=== PATIENT | male | born 1950 | race African-American/Black ===

== ENCOUNTER 2019-11-28 21:11 | Inpatient (IN) | payer OTHER ==
[2019-11-28] MEDS ORDERED: NA CHLORIDE 0.9% 1,000 ML ONE ×2 (21:40→22:06)
[2019-11-28] MEDS ORDERED: ALBUTEROL INHALER 60 PUFF/8 GM IH ONE (21:40)
[2019-11-28 21:54] LABS: Absolute Lymphocytes (CBC) 0.8 K/uL (0.7-4.9); Basophils % 0.5 % (0-1.3); Hematocrit 36.6 % (39.6-49.0); Lymphocytes % 8.8 % (15.3-44.8); RBC Red Blood Cell Count 4.15 M/uL (4.33-5.43)
[2019-11-28 22:04] LABS: Protime INR 1.18
[2019-11-28 22:07] LABS: ALT/SGPT 27 U/L (12-78); AST/SGOT 26 U/L (15-37); Albumin 2.7 g/dL (3.4-5.0); Alkaline Phosphatase 114 U/L (45-117); Amylase 44 U/L (25-115); BUN Blood Urea Nitrogen 18 mg/dL (7-18); Bicarbonate 24 mmol/L (21-32); Bilirubin Direct 0.3 mg/dL (0-0.2); Bilirubin Total 0.9 mg/dL (0.2-1.0); CKMB Creatine Kinase MB < 1.0 ng/mL (0.3-3.6); Creatine Phosphokinase 271 U/L (39-308); Glucose Level 242 mg/dL (74-106); Lipase 63 U/L (73-393); NT PRO-BNP 1174 pg/mL (<125); Potassium 4.1 mmol/L (3.5-5.1); Protein, Total 8.9 g/dL (6.4-8.2); Sodium Level 135 mmol/L (136-145); Troponin (Emerg Dept Use Only) < 0.02 ng/mL (0.0-0.045)
--- NOTE | 2019-11-28 22:22 | RAD REPORT ---
EXAM DESCRIPTION: Otto Single View11/28/2019 9:49 pm CLINICAL HISTORY: Shortness of breath COMPARISON: none FINDINGS: Mild to moderate bilateral patchy pulmonary opacities. The heart is normal size IMPRESSION: Mild to moderate patchy bilateral pulmonary opacities may indicate Covid pneumonia
[2019-11-28] MEDS ORDERED: NA CHLORIDE 0.9% 250 ML ONE ×2 (22:31→23:07)
[2019-11-28] MEDS ORDERED: CEFTRIAXONE/SWI 1gm 1 GM/10 ML SYR ONE ×2 (22:31→23:07)
[2019-11-28] MEDS ORDERED: AZITHROMYCIN 500 MG INJ IVPB ONE ×2 (22:32→23:06)
--- NOTE | 2019-11-28 22:59 | EDPHYS ---
Physician Documentation [facility] Name: Naren Freeman Age: 69 yrs Sex: Male : 1950 Arrival Date: 11/28/2019 Time: 21:12 Bed 3 Private MD: ED Physician Jono Rogers HPI: 11/27 21:32 This 69 yrs old Black Male presents to ER via EMS with complaints of Breathing mh7 Difficulty, Covid Positive. 21:32 The patient has shortness of breath at rest. mh7 21:33 Onset: The symptoms/episode began/occurred 2 day(s) ago. Duration: The symptoms are mh7 continuous, and are steadily getting worse. The patient's shortness of breath is aggravated by coughing, talking, is alleviated by sitting up. Associated signs and symptoms: Pertinent positives: non-productive cough, Pertinent negatives: chest pain, diaphoresis, dizziness, fever, hemoptysis, loss of consciousness, nausea, numbness in extremities, visual changes, vomiting. Severity of symptoms: At their worst the symptoms were moderate today, in the emergency department the symptoms are unchanged. Patient states that he tested positive for COVID 19 last week. He states that he has become more SOB over the past 2-3 days. He denies any chest pain, fever, abdominal pain, nausea, and vomiting.. Historical: - Allergies: 21:32 Benadryl; mg2 - PMHx: 21:32 Diabetes - NIDDM; High Cholesterol; Hypertension; mg2 - Immunization history:: Flu vaccine is up to date. - Social history:: Smoking status: unknown Patient/guardian denies using alcohol, street drugs, IV drugs. ROS: 21:33 Constitutional: Negative for fever, chills, and weight loss, Eyes: Negative for injury, mh7 pain, redness, and discharge, ENT: Negative for injury, pain, and discharge, Neck: Negative for injury, pain, and swelling, Cardiovascular: Negative for chest pain, palpitations, and edema, Back: Negative for injury and pain, : Negative for injury, bleeding, discharge, and swelling, MS/Extremity: Negative for injury and deformity, Skin: Negative for injury, rash, and discoloration, Neuro: Negative for headache, weakness, numbness, tingling, and seizure, Psych: Negative for depression, anxiety, suicide ideation, homicidal ideation, and hallucinations, Allergy/Immunology: Negative for hives, rash, and allergies, Endocrine: Negative for neck swelling, polydipsia, polyuria, polyphagia, and marked weight changes, Hematologic/Lymphatic: Negative for swollen nodes, abnormal bleeding, and unusual bruising. Exam: 21:33 Head/Face: Normocephalic, atraumatic. Eyes: Pupils equal round and reactive to light, mh7 extra-ocular motions intact. Lids and lashes normal. Conjunctiva and sclera are non-icteric and not injected. Cornea within normal limits. Periorbital areas with no swelling, redness, or edema. Neck: Trachea midline, no thyromegaly or masses palpated, and no cervical lymphadenopathy. Supple, full range of motion without nuchal rigidity, or vertebral point tenderness. No Meningismus. Chest/axilla: Normal chest wall appearance and motion. Nontender with no deformity. No lesions are appreciated. 21:33 Abdomen/GI: Soft, non-tender, with normal bowel sounds. No distension or tympany. No guarding or rebound. No evidence of tenderness throughout. Back: No spinal tenderness. No costovertebral tenderness. Full range of motion. Skin: Warm, dry with normal turgor. Normal color with no rashes, no lesions, and no evidence of cellulitis. MS/ Extremity: Pulses equal, no cyanosis. Neurovascular intact. Full, normal range of motion. Neuro: Awake and alert, GCS 15, oriented to person, place, time, and situation. Cranial nerves II-XII grossly intact. Motor strength 5/5 in all extremities. Sensory grossly intact. Cerebellar exam normal. Normal gait. Psych: Awake, alert, with orientation to person, place and time. Behavior, mood, and affect are within normal limits. 21:33 Constitutional: The patient appears alert, awake, obviously ill, uncomfortable. 21:33 Cardiovascular: Rate: tachycardic, Rhythm: regular, Pulses: no pulse deficits are appreciated, Heart sounds: normal, normal S1and S2, Edema: is not appreciated, JVD: is not appreciated. 21:33 ECG was reviewed by the Attending Physician. 21:33 Respiratory: mild respiratory distress is noted, Respirations: prolonged exhalation, that is mild, tachypnea, that is mild, Breath sounds: rhonchi, that are moderate, are scattered, Respiratory rate: 28 Vital Signs: 21:23 BP 148 / 91; Pulse 111; Resp 28; Temp 97.6(O); Pulse Ox 95% on 3 lpm NC; Weight 81.65 mg2 kg; Height 6 ft. 1 in. (185.42 cm); 22:47 Pulse 105; Resp 25; Pulse Ox 100% on 3 lpm NC; mg2 23:44 BP 113 / 100; Pulse 95; Resp 24; Temp 97.6; Pulse Ox 99% on 3 lpm NC; mg2 11/28 00:14 BP 125 / 79; Pulse 96; Resp 21; Temp 98.7; Pulse Ox 100% on 2 lpm NC; rv 11/27 21:23 Body Mass Index 23.75 (81.65 kg, 185.42 cm) mg2 MDM: 11/27 21:31 Patient medically screened. 7 22:55 Differential diagnosis: Anemia Anxiety Reaction asthma, Bronchitis CHF exacerbation, mh7 Chronic Obstructive Pulmonary Disease Myocardial Infarction pneumonia, Pneumothorax pulmonary edema, reactive airway disease, Sepsis. Data reviewed: vital signs, nurses notes, EMS record, lab test result(s), cardiac enzymes, CBC, electrolytes, urinalysis, EKG, radiologic studies, plain films. Data interpreted: Pulse oximetry: on 4L(s) per nasal canula, is 100 %. Interpretation: acceptable, Plan: O2 by NC applied. Counseling: I had a detailed discussion with the patient and/or guardian regarding: the historical points, exam findings, and any diagnostic results supporting the discharge/admit diagnosis, the presence of at least one elevated blood pressure reading (>120/80) during this emergency department visit, lab results, radiology results, the need for further work-up and treatment in the hospital. 11/27 21:29 Order name: Amylase, Serum; Complete Time: 22:23 mg2 11/27 21:29 Order name: Basic Metabolic Panel; Complete Time: 22:23 mg2 11/27 21:29 Order name: Blood Culture Adult (2) mg2 11/27 21:29 Order name: CBC with Diff; Complete Time: 22:02 mg2 11/27 21:29 Order name: Ckmb; Complete Time: 22:23 mg2 11/27 21:30 Order name: CPK; Complete Time: 22:23 mg2 11/27 21:30 Order name: Lactate; Complete Time: 22:23 mg2 11/27 21:30 Order name: LFT's; Complete Time: 22:23 mg2 11/27 21:30 Order name: Lipase; Complete Time: 22:23 mg2 11/27 21:30 Order name: Procalcitonin; Complete Time: 22:39 mg2 11/27 21:30 Order name: Protime (+inr); Complete Time: 22:23 mg2 11/27 21:30 Order name: Ptt, Activated; Complete Time: 22:23 mg2 11/27 21:30 Order name: Troponin (emerg Dept Use Only); Complete Time: 22:23 mg2 11/27 21:30 Order name: Urine Microscopic Only mg2 11/27 21:32 Order name: PROBNP; Complete Time: 22:23 mh7 11/27 23:14 Order name: Basic Metabolic Panel EDMS 11/27 23:14 Order name: C-Reactive Protein EDMS 11/27 23:14 Order name: CBC with Automated Diff EDMS 11/27 23:14 Order name: Cortisol EDMS 11/27 23:14 Order name: D-Dimer EDMS 11/27 23:14 Order name: Ferritin EDMS 11/27 23:14 Order name: Lactate EDMS 11/27 23:14 Order name: Lactic Dehydrogenase EDMS 11/27 23:14 Order name: Magnesium EDMS 11/27 23:14 Order name: Phosphorus EDMS 11/27 23:14 Order name: Procalcitonin EDMS 11/27 23:14 Order name: Protime (+INR) EDMS 11/27 23:14 Order name: PTT, Activated Partial Thromb EDMS 11/27 23:14 Order name: NT PRO-BNP EDMS 11/27 23:14 Order name: Troponin I EDMS 11/27 21:30 Order name: Chest Single View XRAY; Complete Time: 22:39 mg2 11/27 21:30 Order name: Accucheck; Complete Time: 21:38 mg2 11/27 21:30 Order name: Cardiac monitoring; Complete Time: 21:38 mg2 11/27 21:30 Order name: EKG - Nurse/Tech; Complete Time: 21:38 mg2 11/27 21:30 Order name: IV Saline Lock - Large Bore; Complete Time: 21:38 mg2 11/27 21:30 Order name: Labs collected and sent; Complete Time: 21:38 mg2 11/27 21:30 Order name: O2 Per Protocol; Complete Time: 21:38 [facility] [place] 21:30 Order name: O2 Sat Monitoring; Complete Time: 21:38 [facility] [place] 23:17 Order name: Heart Healthy EDMI 11/27 23:17 Order name: Lipid Profile EDMI 11/27 23:17 Order name: Lipid Profile [facility] 11/27 23:47 Order name: Lactate Sepsis 2 HR Follow-up EDMS EC:33 Rate is 104 beats/min. Rhythm is regular, Sinus tachycardia. QRS [place] is Normal. RI mh7 interval is normal. QRS interval is normal. QT interval is normal. No Q waves. T waves are Normal. No ST changes noted. Clinical impression: Sinus tachycardia. Administered Medications: 21:37 Drug: NS 0.9% (30 ml/kg) 30 ml/kg Route: IV; Rate: bolus; Site: right antecubital; 11/28 00:13 Follow up: IV Status: Completed infusion; IV Intake: 2500ml rv 11/27 22:30 Drug: AZITHromycin 500 mg Route: IVPB; Infused Over: 1 hrs; Site: right antecubital[place] [facility] [place] 00:13 Follow up: IV Status: Completed infusion rv 00:13 Follow up: IV Intake: 250ml rv 11/27 22:31 Drug: Rocephin - (cefTRIAXone) 1 grams Route: IVPB; Infused Over: 30 mins; Site[place] [facility] [place]; 22:35 Follow up: IV Status: Completed infusion rv 23:01 Drug: Decadron - Dexamethasone 10 mg Route: IVP; Site: right antecubital; [facility] [place] 00:13 Follow up: Response: No adverse reaction rv Disposition: 11/28/19 22:58 Hospitalization ordered by Juan Carlos Ortega for Inpatient Admission. Preliminary diagnosis are Pneumonia, Hypoxia, COVID 19. - Bed requested for Intensive Care Unit. - Status is Inpatient Admission. rv - Condition is Fair. - Problem is an ongoing problem. - Symptoms have improved. Signatures: Dispatcher [employer] EDMS Shalini Sandy, RN RN Jeffry Vasquez RN RN [facility] [place] Rm Hernandez RN RN Jono Rogers MD MD mh7 Corrections: (The following items were deleted from the chart) 11/27 23:44 22:58 Hospitalization Ordered by Juan Carlos Ortega MD for Inpatient Admission. Preliminary cg diagnosis is Pneumonia; Hypoxia; COVID 19. Bed requested for Telemetry/MedSurg (Inpatient). Status is Inpatient Admission. Condition is Fair. Problem is an ongoing problem. Symptoms have improved. mh7 11/28 00:14 11/27 23:44 11/28/2019 22:58 Hospitalization Ordered by Juan Carlos Ortega MD for Inpatient rv Admission. Preliminary diagnosis is Pneumonia; Hypoxia; COVID 19. Bed requested for Intensive Care Unit. Status is Inpatient Admission. Condition is Fair. Problem is an ongoing problem. Symptoms have improved. cg
--- NOTE | 2019-11-28 22:59 | ER ---
Nurse's Notes [facility] Name: Naren Freeman Age: 69 yrs Sex: Male : 1950 Arrival Date: 11/28/2019 Time: 21:12 Bed 3 Private MD: Diagnosis: Pneumonia;Hypoxia;COVID 19 Presentation: 11/27 21:23 Chief complaint: EMS states: he is COVID positive last Wednesday. now with shortness of mg2 breath, diarrhea and cold sweats at night. sat of 88% RA. [id number]. Coronavirus screen: Surgical mask placed on patient. Patient moved to private room, placed in contact and droplet isolation with eye protection until further assessment. Patient reports a cough. Patient reports shortness of breath or difficulty breathing. Patient denies measured and/or subjective temperature greater than 100.4F prior to today's visit. Patient denies travel on a cruise ship or to a country the [facility] currently lists as an affected area. Patient denies contact with known and/or suspected case of COVID-19. Prior COVID test collected on: Wednesday positive). Ebola Screen: No symptoms or risks identified at this time. Initial Sepsis Screen: Does the patient meet any 2 criteria? RR > 20 per min. HR > 90 bpm. Yes Does the patient have a suspected source of infection? Yes:. Risk Assessment: Do you want to hurt yourself or someone else? Patient reports no desire to harm self or others. Onset of symptoms was November 2019. 21:23 Method Of Arrival: EMS: [facility] mg2 21:23 Acuity: DIXIE 2 mg2 Triage Assessment: 21:45 General: Appears distressed, comfortable, Behavior is calm, cooperative. mg2 21:45 Pain: Denies pain. EENT: No deficits noted. Neuro: Level of Consciousness is awake, mg2 alert, obeys commands, Oriented to person, place, time, situation. Cardiovascular: Capillary refill < 3 seconds Patient's skin is warm and dry. Respiratory: Reports shortness of breath at rest Onset: The symptoms/episode began/occurred this morning, the patient has moderate shortness of breath. GI: No signs and/or symptoms were reported involving the gastrointestinal system. : No signs and/or symptoms were reported regarding the genitourinary system. Derm: Skin is intact, is healthy with good turgor, Skin is pink, warm \T\ dry. normal. Musculoskeletal: Circulation, motion, and sensation intact. Capillary refill < 3 seconds. Historical: - Allergies: 21:32 Benadryl; mg2 - PMHx: 21:32 Diabetes - NIDDM; High Cholesterol; Hypertension; mg2 - Immunization history:: Flu vaccine is up to date. - Social history:: Smoking status: unknown Patient/guardian denies using alcohol, street drugs, IV drugs. Screenin:33 Abuse screen: Denies threats or abuse. Denies injuries from another. Nutritional mg2 screening: No deficits noted. Tuberculosis screening: No symptoms or risk factors identified. Fall Risk IV access (20 points). Assessment: 21:33 Respiratory: Airway is patent Respiratory effort is even, unlabored, Respiratory mg2 pattern is regular, symmetrical, tachypnea Breath sounds are clear bilaterally. 22:47 Reassessment: Patient appears in no apparent distress at this time. Patient and/or mg2 family updated on plan of care and expected duration. Pain level reassessed. Patient is alert, oriented x 3, equal unlabored respirations, skin warm/dry/pink. 22:47 General: SISTER (PEARL) called and updated about the patient. [phone]. mg2 22:48 Cardiovascular: Rhythm is regular. mg2 Vital Signs: 21:23 BP 148 / 91; Pulse 111; Resp 28; Temp 97.6(O); Pulse Ox 95% on 3 lpm NC; Weight 81.65 mg2 kg; Height 6 ft. 1 in. (185.42 cm); 22:47 Pulse 105; Resp 25; Pulse Ox 100% on 3 lpm NC; mg2 23:44 BP 113 / 100; Pulse 95; Resp 24; Temp 97.6; Pulse Ox 99% on 3 lpm NC; mg2 11/28 00:14 BP 125 / 79; Pulse 96; Resp 21; Temp 98.7; Pulse Ox 100% on 2 lpm NC; rv 11/27 21:23 Body Mass Index 23.75 (81.65 kg, 185.42 cm) mg2 ED Course: 11/27 21:12 Patient arrived in ED. cf2 21:23 Jeffry Vasquez, ESTRELLA is Primary Nurse. mg2 21:25 First set of blood cultures drawn by ky. rv 21:28 Triage completed. mg2 21:31 Jono Rogers MD is Attending Physician. [facility] 21:32 No provider procedures requiring assistance completed. Inserted saline lock: 18 gauge mg2 in right antecubital area, using aseptic technique. Blood collected. by ESTRELLA Elizabeth. 21:32 Maintain EMS IV. Dressing intact. Good blood return noted. Site clean \T\ dry. Gauge \T\ mg 2 site: 20 \T\ LAC. 21:33 Patient has correct armband on for positive identification. threat monitoring analyst on. Pulse mg2 ox on. NIBP on. Door closed. 21:36 Second set of blood cultures drawn by me. rv 21:49 Chest Single View XRAY In Process Unspecified. EDMS 22:48 Arm band placed on. mg2 22:56 Juan Carlos Ortega MD is Hospitalizing Provider. [facility] 11/28 00:14 IV is patent, with fluids infusing freely, with good blood return, Patient admitted, IV rv remains in place. Administered Medications: 11/27 21:37 Drug: NS 0.9% (30 ml/kg) 30 ml/kg Route: IV; Rate: bolus; Site: right antecubital; rv 11/28 00:13 Follow up: IV Status: Completed infusion; IV Intake: 2500ml rv 11/27 22:30 Drug: AZITHromycin 500 mg Route: IVPB; Infused Over: 1 hrs; Site: right antecubital; [facility] [place] 11/28 00:13 Follow up: IV Status: Completed infusion rv 00:13 Follow up: IV Intake: 250ml rv 11/27 22:31 Drug: Rocephin - (cefTRIAXone) 1 grams Route: IVPB; Infused Over: 30 mins; Site: right mg2 antecubital; 22:35 Follow up: IV Status: Completed infusion rv 23:01 Drug: Decadron - Dexamethasone 10 mg Route: IVP; Site: right antecubital; [facility] [place] 11/28 00:13 Follow up: Response: No adverse reaction rv Intake: 00:13 IV: 250ml; Total: 250ml. rv 00:13 IV: 2500ml; Total: 2750ml. rv Outcome: 11/27 22:58 Decision to Hospitalize by Provider. [facility] 11/28 00:13 Admitted to ICU accompanied by nurse, via stretcher, room 7, with chart, Report called rv to BREANNA DE LA ROSA Condition: good Instructed on the need for admit. 00:14 Patient left the ED. rv Signatures: Dispatcher [employer] EDMS Jeffry Vasquez RN RN mg2 Rm Hernandez RN RN rv Lionel Luna 2 Jono Rogers MD MD mh7 Corrections: (The following items were deleted from the chart) 11/27 22:46 21:39 General: Appears rv mg2 22:46 22:45 Respiratory: Reports mg2 mg2 22:47 22:45 General: Behavior is calm, cooperative, mg2 mg2 22:47 22:46 General: Appears mg2 mg2 23:15 21:32 Inserted saline lock: 20 gauge in right antecubital area, using aseptic rv technique. Blood collected. by ESTRELLA Elizabeth mg2
[2019-11-28] MEDS ORDERED: dexAMETHasone 10 MG/ML VIAL ONE (23:06)
[2019-11-28] MEDS ORDERED: ALBUTEROL INHALER 60 PUFF/8 GM IH PRN (23:12)
[2019-11-28] MEDS ORDERED: ENOXAPARIN 40 MG/0.4 ML SQ ONE (23:12)
[2019-11-28] MEDS ORDERED: BENZONATATE 100 MG CAP PO PRN (23:12)
[2019-11-28] MEDS ORDERED: MORPHINE 2 MG/ML SYR IV PRN (23:12)
[2019-11-28] MEDS ORDERED: ACETAMINOPHEN 325 MG TABLET PO PRN (23:14)
[2019-11-28] MEDS ORDERED: ONDANSETRON 4 MG/2 ML VIAL IV PRN (23:14)
[2019-11-29] MEDS ORDERED: dexAMETHasone 10 MG/ML VIAL IV SCH (01:00)
[2019-11-29] MEDS: PANTOPRAZOLE 40MG TABLET PO SCH (06:21)
[2019-11-29 06:51] LABS: Absolute Lymphocytes (CBC) 0.5 K/uL (0.7-4.9); Basophils % 0.3 % (0-1.3); Hematocrit 33.2 % (39.6-49.0); Lymphocytes % 6.6 % (15.3-44.8); MPV 8.1 fL (7.6-11.3)
[2019-11-29 06:54] LABS: Protime INR 1.25
[2019-11-29 07:37] LABS: BUN Blood Urea Nitrogen 18 mg/dL (7-18); Bicarbonate 23 mmol/L (21-32); Glucose Level 282 mg/dL (74-106); HDL Cholesterol 31 mg/dL (40-60); LDL Cholesterol, Calculated 96 (<130); NT PRO-BNP 931 pg/mL (<125); Phosphorus 3.9 mg/dL (2.5-4.9); Potassium 4.6 mmol/L (3.5-5.1); Sodium Level 136 mmol/L (136-145); Troponin I < 0.02 ng/mL (0.0-0.045)
--- NOTE | 2019-11-29 07:58 | P.HP ---
Certification for Inpatient Patient admitted to: Inpatient With expected LOS: >2 Midnights Patient will require the following post-hospital care: None Practitioner: I am a practitioner with admitting privileges, knowledge of patient current condition, hospital course, and medical plan of care. Services: Services provided to patient in accordance with Admission requirements found in Title 42 Section 412.3 of the Code of Federal Regulations Patient History Date of Service: 11/28/19 Reason for admission: COVID-19 pneumonia History of Present Illness: Patient is a 69-year-old gentleman who came to the hospital with worsening shortness of breath. Patient was diagnosed with COVID-19 1 week prior. Patient's symptoms have gradually gotten worse. Patient states he was not taking any additional medication. He had been feeling well, and over the last few days he noticed that he was having a hard time with his breathing. He came into the ER tonight, and he was found with pneumonia. Patient appears to have COVID-19 pneumonia. Will go ahead and start him on IV steroids, albuterol inhaler, steroid inhaler if available, IV zithromycin, and anticoagulation. Patient will be admitted to the hospital for further evaluation. Allergies diphenhydramine [From Benadryl] Allergy (Verified 03/04/16 10:02) Nausea/Vomiting Home Medications: Canagliflozin [Invokana] 100 mg PO DAILY 12/17/15 Glimepiride [Amaryl] 4 mg PO BREAKFAST 12/17/15 Lovastatin 40 mg PO BEDTIME 12/17/15 hydroCHLOROthiazide [Hydrochlorothiazide*] 12.5 mg PO DAILY 12/17/15 lisinopriL [Prinivil] 20 mg PO DAILY 12/17/15 Ciprofloxacin HCl [Cipro 500 MG Tablet] 500 mg PO BID #14 tab 12/26/15 Hydrocodone 7.5/APAP 325 [[place] 7.5/325 mg] 1 tab PO Q6H PRN #30 tab 12/26/15 Acetaminophen/Diphenhydramine [Tylenol Pm Ex-Strength Caplet] 2 each PO BEDTIME PRN 11/29/19 Aspirin 81 mg PO DAILY 11/29/19 Benzonatate 100 mg PO TID PRN 11/29/19 Duloxetine HCl 60 mg PO DAILY 11/29/19 Tamsulosin [Flomax] 0.4 mg PO DAILY 11/29/19 - Past Medical/Surgical History Has patient received pneumonia vaccine in the past: Yes Diabetic: Yes -: NIDDM -: HTN -: High Cholesterol -: 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 moist/pink, EOMI, Sclerae nonicteric Neck: Supple, 2+ carotid pulse no bruit, No LAD, Without JVD or thyroid abnormality Respiratory: Diminished, Expiratory wheezes, Rhonchi/gurgles Cardiovascular: Regular rate/rhythm, Normal S1 S2, No murmurs Gastrointestinal: Normal bowel sounds, Soft and benign, Non-distended, No tenderness Musculoskeletal: No clubbing, No swelling, No tenderness Integumentary: No rashes Neurological: Normal gait, Normal speech, Normal strength at 5/5 x4 extr, Normal tone, Sensation intact, Cranial nerves 3-12 intact, Normal affect Lymphatics: No axilla or inguinal lymphadenopathy - Studies Laboratory Data (last 24 hrs) 11/28/19 21:25: PT 13.9 H, INR 1.18, APTT 32.5 11/28/19 21:25: WBC 8.9, Hgb 12.3 L, Hct 36.6 L, Plt Count 396 11/28/19 21:25: Sodium 135 L, Potassium 4.1, BUN 18, Creatinine 1.60 H, Glucose 242 H, Total Bilirubin 0.9, AST 26, ALT 27, Alkaline Phosphatase 114, Amylase 44, Lipase 63 L Assessment & Plan - Problems (Diagnosis) (1) COVID-19 virus infection Current Visit: Yes Status: Acute (2) Diabetes mellitus Onset Date: 12/18/15 Current Visit: No Status: Acute - Plan 1. Continue with IV antibiotics 2. COVID-19 pneumonia 3. Repeat chest x-ray is symptoms are progressively worsening 4. O2 per protocol 5. Pulmonary consultation 6. Continue with albuterol inhaler therapy; IV dexamethasone; may add zinc and vitamin-C 7. O2 per protocol 8. Monitor blood sugars closely 9. Repeat labs including D-dimer, ferritin, and CRP and LFTs 10. GI and DVT prophylaxis Discharge Plan: Home Plan to discharge in: Greater than 2 days - Advance Directives Does patient have a Living Will: No Does patient have a Durable POA for Healthcare: No - Code Status/Comfort Care Code Status Assessed: Yes Code Status: Full Code Critical Care: No Time Spent Managing PTS Care (In Minutes): 45
[2019-11-29] MEDS: ENOXAPARIN 40 MG/0.4 ML SQ SCH (08:00)
[2019-11-29] MEDS: dexAMETHasone 4 MG/ML VIAL IV SCH ×2 (08:00→16:44)
[2019-11-29 08:15] LABS: Blood Morphology Comment NOT SEEN (NOT SEEN); Platelet Estimate ADEQ
[2019-11-29] MEDS: AZITHROMYCIN IV 250 MG in NA CHLORIDE 0.9% 250 ML IVPB SCH (10:22)
[2019-11-29] MEDS ORDERED: GLUCAGON 1 MG/VIAL IM PRN (12:14)
[2019-11-29] MEDS ORDERED: D50W 25 GM/50 ML SYRINGE/VIAL IV PRN (12:14)
[2019-11-29] MEDS ORDERED: INSULIN -REGULAR HUMAN 50 UNIT/0.5 ML ML SQ SCH (16:30)
[2019-11-29] MEDS ORDERED: HYDROCODONE/APAP 7.5/325 MG TAB PO PRN (16:32)
[2019-11-29] MEDS: INSULIN -REGULAR HUMAN 50 UNIT/0.5 ML ML SQ SCH ×2 (16:44→20:58)
[2019-11-29] MEDS: GLUCERNA SHAKE 237 ML CAN PO SCH (20:58)
[2019-11-30] MEDS: dexAMETHasone 4 MG/ML VIAL IV SCH ×3 (00:10→21:59)
[2019-11-30] MEDS: PANTOPRAZOLE 40MG TABLET PO SCH (06:15)
[2019-11-30 06:29] VITALS: BMI 20.1
[2019-11-30 06:58] LABS: Absolute Lymphocytes (CBC) 0.7 K/uL (0.7-4.9); Basophils % 0.3 % (0-1.3); Hematocrit 34.7 % (39.6-49.0); Lymphocytes % 4.5 % (15.3-44.8)
--- NOTE | 2019-11-30 07:26 | EKG ---
Test Date: 2019-11-28 Test Time: 21:18:28 Aircraft Armorer: MEASUREMENT RESULTS: Intervals: Rate: 104 KS: 200 QRSD: 72 QT: 354 QTc: 465 [place]: P: 58 KS: 200 QRS: 37 T: 34 INTERPRETIVE STATEMENTS: Sinus tachycardia Otherwise normal ECG Compared to ECG 03/04/2016 09:30:11 Sinus rhythm no longer present First degree AV block no longer present Prolonged QT interval no longer present Electronically Signed On 11-30-19 07:23:39 CDT by Ramin Cuevas
[2019-11-30] MEDS ORDERED: HOME MED 1 EA UNK (Glimepiride [Amaryl] 4 MG) PO SCH (08:00)
[2019-11-30] MEDS: DULOXETINE 30 MG CAP PO SCH (08:12)
[2019-11-30] MEDS: TAMSULOSIN 0.4 MG SR CAP PO SCH (08:12)
[2019-11-30] MEDS: ENOXAPARIN 40 MG/0.4 ML SQ SCH ×2 (08:13→22:00)
[2019-11-30] MEDS: ASPIRIN 81 MG CHEWABLE TABLET PO SCH (08:13)
[2019-11-30] MEDS: GLIMEPIRIDE 2 MG TABLET PO SCH (08:13)
[2019-11-30 08:14] LABS: Ferritin 925.5 ng/mL (26-388); Magnesium 2.2 mg/dL (1.8-2.4); Potassium 4.5 mmol/L (3.5-5.1)
[2019-11-30] MEDS: GLUCERNA SHAKE 237 ML CAN PO SCH ×2 (08:16→22:01)
[2019-11-30] MEDS: INSULIN -REGULAR HUMAN 50 UNIT/0.5 ML ML SQ SCH ×4 (08:58→22:00)
[2019-11-30] MEDS ORDERED: HOME MED 1 EA UNK (Duloxetine Hcl [Duloxetine Hcl] 60 MG) PO SCH (09:00)
[2019-11-30] MEDS ORDERED: lisinopriL 20 MG TAB PO SCH (09:00)
[2019-11-30] MEDS ORDERED: hydroCHLOROthiazide 12.5 MG CAP PO SCH (09:00)
--- NOTE | 2019-11-30 10:55 | RAD REPORT ---
EXAM DESCRIPTION: CT - [id number] - 11/30/2019 10:07 am CLINICAL HISTORY: numbness hands, COVID positive COMPARISON: No comparisons TECHNIQUE: Axial 5 mm thick images of the head were obtained. Axial 2 mm thick images of the cervic al spine were obtained with sagittal and coronal reconstruction images generated and reviewed. All CT scans are performed using dose optimization technique as appropriate and may include automated exposure control or mA/KV adjustment according to patient size. FINDINGS: No intracranial hemorrhage, mass or edema. No midline shift is present. Atrophy changes ar e present with ventricles in proportion to volume loss. Chronic ischemic changes are present in the c erebral white matter more notable in the frontal lobes. Patient has a small 7 mm old lacunar type inf arctions seen in the posterior left basal ganglia near the genu of the internal capsule. This extends into the deep periventricular white matter of the left frontal lobe. There is an additional more pro minent 17 millimeter area of diminished attenuation in the left frontal lobe. Nonhemorrhagic acute or subacute infarction is not excluded. In this location, this would probably not cause a bilateral cha d numbness deficits. No significant abnormality along either motor pathway. No significant brainstem chronic ischemic change or acute ischemic event identifiable. No cortical edema or sulcal effacement. No extra-axial fluid collections. Mastoid air cells and paranasal sinuses are clear. No globe or orb it abnormality seen. Thyroid gland nodularity is present not likely clinically significant. Cervical bodies are normal in height. There is a mild anterior subluxation of C7 on T1 secondary to f acet degenerative change. C2-C7 vertebrae show straightening of the usual cervical lordosis but no pappas bluxation abnormalities. C5-6, C6-7 and C7-T1 disc spaces are narrowed. Uncovertebral joint hypertrop hy and facet hypertrophy cause bilateral foraminal stenosis at C3-4, C4-5, C5-6 and C6-7. Central can al posterior endplate spurring changes are present C4-C7. At C5-6 focal protruding bone in the midlin e causes spinal stenosis to 8 mm and likely flattens the cord. Canal is borderline stenotic at C4-5 a nd C6-7. No fracture or acute bony abnormality. Central canal detail is inherently limited. No paraspinal mass or hematoma. IMPRESSION: No hemorrhage, mass or edema on CT head imaging. Patient has underlying atrophy and hand clerical verifier apurva ischemic change. Focal 17 millimeter area of decreased attenuation deep periventricular white matter left frontal lobe is potentially an acute or subacute infarction. In this location this would not generate a bilateral hand numbness neurologic deficit. No fracture or acute cervical spine finding. There is multilevel cervical spondylosis with multiple l evels showing abnormalities that could cause hand numbness. This is most notable at C5-6. Negative CT cervical spine examination for acute or significant finding.
[2019-11-30] MEDS: AZITHROMYCIN IV 250 MG in NA CHLORIDE 0.9% 250 ML IVPB SCH (11:01)
--- NOTE | 2019-11-30 11:05 | P.PN ---
Subjective Date of Service: 11/29/19 Subjective: No new changes, No C/O voiced, Improving Review of Systems 10-point ROS is otherwise unremarkable Physical Examination - Vital Signs Temperature: 98.1 F Blood Pressure: 141/83 Pulse: 83 Respirations: 22 Pulse Ox (%): 96 - Physical Exam General: Alert, In no apparent distress, Oriented x3 Respiratory: Diminished, Rhonchi/gurgles Cardiovascular: Regular rate/rhythm, Normal S1 S2, No murmurs Gastrointestinal: Normal bowel sounds, Soft and benign, Non-distended, No tenderness Neurological: Normal speech, Normal affect - Studies Medications List Reviewed: Yes Assessment & Plan - Problems (Diagnosis) (1) COVID-19 virus infection Current Visit: Yes Status: Acute (2) Diabetes mellitus Onset Date: 12/18/15 Current Visit: No Status: Acute - Plan Continue with POC as below: 1. Continue with IV antibiotics 2. COVID-19 pneumonia 3. Repeat chest x-ray is symptoms are progressively worsening 4. O2 per protocol 5. Pulmonary consultation 6. Continue with albuterol inhaler therapy; IV dexamethasone; may add zinc and vitamin-C 7. O2 per protocol 8. Monitor blood sugars closely 9. Repeat labs including D-dimer, ferritin, and CRP and LFTs 10. GI and DVT prophylaxis Discharge Plan: Home Plan to discharge in: 24 Hours - Advance Directives Does patient have a Living Will: No Does patient have a Durable POA for Healthcare: No - Code Status/Comfort Care Code Status: Full Code
--- NOTE | 2019-11-30 11:24 | P.PN ---
Subjective Date of Service: 11/30/19 Primary Care Provider: Unknown Chief Complaint: COVID-19 pneumonia Subjective: Other (Called to the room as the patient was noticing and weakness to the right upper extremity with numbness to the bilateral upper extremities and possible slurred speech. Patient was evaluated. CT scan obtained.) Physical Examination - Vital Signs Temperature: 98.1 F Blood Pressure: 141/83 Pulse: 83 Respirations: 22 Pulse Ox (%): 96 - Physical Exam General: Alert, In no apparent distress, Oriented x3, Cooperative HEENT: Atraumatic Neck: Supple, Other Respiratory: Clear to auscultation bilaterally, Normal air movement Cardiovascular: Normal pulses, Regular rate/rhythm Gastrointestinal: Normal bowel sounds, No masses, No rebound, No guarding Musculoskeletal: Other (Mild RUE weakness. 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 No significant respiratory issues notice at this time. Continue IV Decadron. Maintain oxygen above 93%. Will discuss further with Dr. Ortega who will take over patient. Right upper extremity weakness, bilateral upper extremity numbness, possible slurred speech suspect subacute CVA to the left frontal lobe complicated with multi level cervical spondylosis: CT scan reviewed. Suspect subacute CVA. Case discussed at length with Neurology. No indication for tPA at this time. Continue aspirin. Add Plavix. Continue Lovenox at current dose at this time. Will add folic acid, increase statin medication. Will also order stroke protocol MRI, echocardiogram, and carotid Doppler. Will order physical therapy/occupational therapy/and speech therapy. Patient may require rehab but will determine his needs in the next 1-2 days. Diabetes mellitus type 2 qsq-pmvkjhr-ulxajinsw with hyperglycemia: Will add basal insulin for better diabetic control since the patient is getting IV Decadron for COVID. Continue sliding scale. Monitor Accu-Cheks. Hypertension: Patient reports a cough likely Eddie allergy. Will discontinue li sinopril. Will change attendant to losartan. Due to subacute CVA will limit blood pressure around 140-150 systolic. Hold losartan if systolic less than 140. Hyperlipidemia: Increase statin medication Diabetic neuropathy: Will provide medication BPH: Continue medication Time Spent Managing Pts Care (In Minutes): 55
--- NOTE | 2019-11-30 19:42 | RAD REPORT ---
EXAM DESCRIPTION: MRI - Brain W/Wo Cont - 11/30/2019 7:26 pm CLINICAL HISTORY: numbness COMPARISON: [address] TECHNIQUE: Axial, sagittal, and coronal magnetic images of the brain were obtained. 20 cc MultiHance administered intravenously FINDINGS: Mild signal within periventricular, deep and subcortical white matter probably ischemic c hanges secondary to small vessel disease The ventricles are normal in caliber. Diffusion-weighted/ ADC mapping sequences demonstrate serpiginous areas of abnormal signal within the posterior left frontal lobe compatible with acute infarction. One area measures 14 x 5 millimeters. Additional smaller and punctate areas are present. Small serpiginous area of abnormal signal within the right frontal lobe compatible with old infarctio n. Old infarction involves the left frontal lobe, internal capsule and left basal ganglia No abnormal enhancement within the brain is seen. An extra-axial fluid collection is not noted. Fluid within the sinuses/mastoids is not seen. A mucus retention cyst maxillary sinuses IMPRESSION: Acute infarction posterior left frontal lobe
--- NOTE | 2019-11-30 19:44 | RAD REPORT ---
EXAM DESCRIPTION: MRI - MRA Neck W/Wo Cont - 11/30/2019 7:26 pm CLINICAL HISTORY: Numbness COMPARISON: None. TECHNIQUE: Magnetic resonance angiogram of the neck was performed. 19 cc MultiHance was administered intravenously. 3D MIPS reconstruction performed FINDINGS: Mild plaque within the right carotid bulb. Common carotid, left internal carotid and exter nal carotid arteries appear unremarkable The vertebral arteries are codominant. High-grade stenosis proximal left vertebral artery. IMPRESSION: Mild plaque right carotid bulb NASCET criteria used. Mild 0-49% stenosis Moderate 50-69% stenosis Severe 70-99% stenosis
--- NOTE | 2019-11-30 19:47 | RAD REPORT ---
EXAM DESCRIPTION: MRI - MRA Head Wo Cont - 11/30/2019 7:26 pm CLINICAL HISTORY: Numbness COMPARISON: None. TECHNIQUE: Magnetic resonance angiogram was performed. 3D MIPS reconstruction performed FINDINGS: The anterior cerebral, middle cerebral,, distal internal carotid and basilar arteries do n ot demonstrate a significant stenosis. Short segment stenoses involves right and left posterior arteries probably chronic An aneurysm is not displayed. IMPRESSION: No acute abnormality is displayed
[2019-11-30] MEDS: INSULIN GLARGINE 100 UNITS/ML SQ SCH (21:00)
[2019-11-30] MEDS: ATORVASTATIN 80 MG TAB PO SCH (22:00)
--- NOTE | 2019-11-30 22:34 | CON ---
Reason For Consultation: Consultation called because of possible stroke. History Of Present Illness: Mr. Freeman is a 69-year-old right-handed patient who was admitted to [facility] on 11/28/2019 with COVID-19 pneumonia. He had shortness of breath fo r at least a week and was diagnosed a week earlier. While hospitalized he was noted to have right-si ded weakness, which could have been present prior to his hospitalization and bilateral numbness. Hea d CT scan was done and also included cervical spine. It identified a 17 mm area of decreased attenua tion in the deep periventricular white matter in the left frontal lobe, potentially noted to be an ac jan versus subacute infarct. However, it was noted that that area will not produce bilateral hand nu mbness but he may have some right-sided weakness, perhaps related to that. Cervical region showed mu ltilevel cervical spondylosis and there was a notable involvement at the C5-6, which may produce some hand numbness. His electrocardiogram showed a sinus tachycardia but was otherwise unremarkable and a chest x-ray, he had a mild to moderate patchy bilateral pneumonia indicative of COVID pneumonia. Past Medical History: Includes hypertension and dyslipidemia, prostate hypertrophy, depression, change lead apurva pain, and diabetes mellitus. Allergies: BENADRYL. Surgical History: Right toe amputation, small toe on the right and then also left toe amputation and left qwjni-pqr-dexc amputation. Family History: Positive for diabetes mellitus and cancer in mother. Social History: Smokes on a regular basis. No regular alcohol use or caffeinated beverages. Review of Systems: No recent fevers or chills besides the cough and shortness of breath. He had no abdominal pain, diar kalpesh, and no dermatological issues. No psychiatric issues. Physical Examination: Vital Signs: Blood pressure 142/78, pulse of 96, respiratory rate 16 to 20, temperature 98.0, oxygen saturation 98%. Weight 151 pounds. Height 6 feet 1 inch. General: Mr. Freeman is resting in bed. He is in no significant distress. He is in ICU. HEENT: He is normocephalic, atraumatic. Sclerae anicteric. Oropharynx is moist. Neck: Supple. Chest: Clear. Heart: Appears regular. The patient's nurse did evaluate him as well as I was at the bedside. Neurological: In terms of cranial nerves, no obvious focal cranial nerve deficits. He did note that his right hand appeared still not back to normal in terms of strength and there is some sensory loss bilaterally in the upper extremities. Lower extremities were reportedly unremarkable. Reflexes cou ld not be fully assessed and his coordination appears intact. Gait not assessed. Laboratory Studies: White blood cell count elevated to 15.2 with 91.2% neutrophils, hemoglobin 11.5, platelets 514. INR 1.25. D-dimer elevated at 19,953. His chemistries include blood sugars ranging from 278-325. Hemoglobin A1c is 8.5. Lactic acid level 1.8, and procalcitonin normal at 0.33. Oth erwise C-reactive protein is very elevated to 111, lactate dehydrogenase elevated to 402. Assessment: Mr. Freeman is 69-year-old patient with a possible subacute left frontal stroke on CT scan and he has some residual right-sided weakness. The stroke is likely subacute and he was not a candid ate for tPA. He does have bilateral numbness in the upper extremities, which may be related to cervi julio cord compression and nerve root compression. He has multiple comorbid conditions including hyper tension, diabetes mellitus, and dyslipidemia. He has diabetic peripheral neuropathy and has a below- the-knee amputation. He has positive COVID-19 pneumonia. Please note, NIH stroke scale is 2. Plan: 1.Continue aggressive management of infections and use steroids as appropriate for his COVID-19. 2.He may take aspirin, Plavix, folic acid along with high-dose statin for stroke risk reduction. 3.Permissive hypertension in the next 3 days. 4.Aggressive management of blood sugars. 5.Since the patient is COVID-19 positive, he is not a candidate for admission to the inpatient rehab ilitation unit on hospital floor. He may be discharged home on quarantine and if there is possible m ay have [facility] provide physical therapy. 6.He may schedule a phone followup with Dr. Cuevas in 1 month. PETE/ELDA Voice ID: [id number] Report ID: [id number]
[2019-12-01] MEDS: PANTOPRAZOLE 40MG TABLET PO SCH (05:38)
[2019-12-01 06:30] LABS: Absolute Lymphocytes (CBC) 0.7 K/uL (0.7-4.9); Basophils % 0.1 % (0-1.3); Lymphocytes % 4.1 % (15.3-44.8); MPV 8.1 fL (7.6-11.3); RBC Red Blood Cell Count 3.65 M/uL (4.33-5.43)
[2019-12-01 07:10] LABS: C-Reactive Protein 50.5 mg/L (<3.00); Ferritin 784.3 ng/mL (26-388); Magnesium 2.2 mg/dL (1.8-2.4); Phosphorus 2.5 mg/dL (2.5-4.9)
[2019-12-01] MEDS: LOSARTAN POTASSIUM 50 MG TABLET PO SCH (08:55)
[2019-12-01] MEDS: DULOXETINE 30 MG CAP PO SCH (08:55)
[2019-12-01] MEDS: CLOPIDOGREL 75 MG TABLET PO SCH (08:55)
[2019-12-01] MEDS: ASPIRIN 81 MG CHEWABLE TABLET PO SCH (08:55)
[2019-12-01] MEDS: INSULIN -REGULAR HUMAN 50 UNIT/0.5 ML ML SQ SCH ×4 (08:56→20:21)
[2019-12-01] MEDS: GLIMEPIRIDE 2 MG TABLET PO SCH (08:56)
[2019-12-01] MEDS: FOLIC ACID 1 MG TABLET PO SCH (08:56)
[2019-12-01] MEDS: TAMSULOSIN 0.4 MG SR CAP PO SCH (08:56)
[2019-12-01] MEDS ORDERED: LOSARTAN POTASSIUM 50 MG TABLET PO SCH (09:00)
[2019-12-01] MEDS: GLUCERNA SHAKE 237 ML CAN PO SCH ×2 (09:00→20:23)
--- NOTE | 2019-12-01 09:31 | RAD REPORT ---
EXAM DESCRIPTION: US - CP - 11/30/2019 10:06 pm CLINICAL HISTORY: Bilateral UE numbness RUE weakness, Slurred speech COMPARISON: MRA Neck W/Wo Cont dated 11/30/2019 TECHNIQUE: Real-time sonographic evaluation of bilateral carotid and vertebral systems was performed . Leon scale and Doppler interrogation were performed with waveform tracing bilaterally. FINDINGS: Normal high resistance waveforms are noted in both external carotid arteries. The common c arotid arteries and internal carotid arteries show normal low resistance waveforms. Mild plaquing changes are present in the right carotid bulb. On visual inspection this does not cause significant narrowing of the vessel lumen. Images correlate with the MRA neck examination with steno sis less than 50%. No other significant plaquing identified. Peak systolic and end diastolic velocity values and the ICA/CCA ratios are in the non-hemodynamically significant range. Antegrade flow seen in both vertebral arteries. Velocity values and ratios were recorded and are retained in the patient's imaging records. IMPRESSION: Right carotid bulb plaquing changes are present, mild in degree, not causing significant luminal narrowing. No other significant plaquing changes.
[2019-12-01] MEDS: ENOXAPARIN 40 MG/0.4 ML SQ SCH ×2 (09:42→20:22)
[2019-12-01] MEDS: dexAMETHasone 4 MG/ML VIAL IV SCH ×2 (09:42→20:22)
--- NOTE | 2019-12-01 09:47 | ECHO ---
HEIGHT: 6 ft 1 in WEIGHT: 152 lb 14.4 oz DATE OF STUDY: 11/30/[address]: Venancio Mayer DO 2-DIMENSIONAL: YES M.MODE: YES DOPPLER: YES COLOR FLOW: YES TDS: NO PORTABLE: NO DEFINITY: NO BUBBLE STUDY: NO DIAGNOSIS: BILATERAL UE NUMBNESS, RUE WEAKNESS AND SLURRED SPEECH CARDIAC HISTORY: CATHERIZATION: NO SURGERY: NO PROSTHETIC VALVE: NO PACEMAKER: NO MEASUREMENTS (cm) DIASTOLIC (NORMALS) SYSTOLIC (NORMALS) IVSd 1.0 (0.6-1.2) LA Diam 2.5 (1.9-4.0) LVEF 55% LVIDd 3.3 (3.5-5.7) LVIDs 2.4 (2.0-3.5) %FS 28% LVPWd 1.0 (0.6-1.2) Ao Diam 3.0 (2.0-3.7) 2 DIMENSIONAL ASSESSMENT: RIGHT ATRIUM: NORMAL LEFT ATRIUM: NORMAL RIGHT VENTRICLE: NORMAL LEFT VENTRICLE: NORMAL TRICUSPID VALVE: NORMAL MITRAL VALVE: NORMAL PULMONIC VALVE: NORMAL AORTIC VALVE: NORMAL PERICARDIAL EFFUSION: NONE AORTIC ROOT: NORMAL LEFT VENTRICULAR WALL MOTION: NORMAL DOPPLER/COLOR FLOW: GRADE I DIASTOLIC DYSFUNCTION. COMMENTS: NORMAL LEFT VENTRICULAR EJECTION FRACTION 55-60% WITH NORMAL WALL MOTION. GRADE I DIASTOLIC DYSFUNCTION. TECHNOLOGIST: Sparkle SILVA
--- NOTE | 2019-12-01 11:04 | P.PN ---
Subjective Date of Service: 12/01/19 Primary Care Provider: Unknown Chief Complaint: COVID-19 pneumonia Subjective: No new changes Review of Systems 10-point ROS is otherwise unremarkable Physical Examination - Vital Signs Temperature: 96.9 F Blood Pressure: 168/94 Pulse: 76 Respirations: 18 Pulse Ox (%): 94 - Physical Exam General: Alert, Mild distress HEENT: Atraumatic, Normocephalic Neck: Supple Respiratory: Diminished, Crackles/rales Cardiovascular: Regular rate/rhythm, Normal S1 S2 Capillary refill: <2 Seconds Gastrointestinal: Soft and benign, W/out hepatosplenomegaly Musculoskeletal: No clubbing, No swelling Integumentary: No rashes Neurological: Other (Alert , awake moves all the limbs) Lymphatics: No axilla or inguinal lymphadenopathy Urinary: Other (No bladder distention) - Studies Laboratory Tests 11/28/19 11/28/19 11/28/19 21:25 21:25 21:25 WBC 8.9 RBC 4.15 L Hgb 12.3 L Hct 36.6 L MCV 88.3 MCH 29.6 MCHC 33.6 RDW 14.7 Plt Count 396 MPV 8.0 Neutrophils % 79.2 H Lymphocytes % 8.8 L Monocytes % 10.5 Eosinophils % 1.0 Basophils % 0.5 Absolute Neutrophils 7.1 Absolute Lymphocytes 0.8 Absolute Monocytes 0.9 Absolute Eosinophils 0.1 Absolute Basophils 0.0 PT INR APTT Sodium 135 L Potassium 4.1 Chloride 97 L Carbon Dioxide 24 BUN 18 Creatinine 1.60 H Estimated GFR 52 L Glucose 242 H Lactic Acid 2.3 H Calcium 9.4 Total Bilirubin 0.9 Direct Bilirubin 0.3 H AST 26 ALT 27 Alkaline Phosphatase 114 Creatine Kinase 271 CK-MB (CK-2) < 1.0 Rapid Troponin I < 0.02 NT-Pro-B Natriuret Pep 1174 H Serum Total Protein 8.9 H Albumin 2.7 L Globulin 6.2 H Albumin/Globulin Ratio 0.4 L Amylase 44 Lipase 63 L Procalcitonin Urine RBC Urine WBC Ur Squamous Epith Cells Ur Urothelial Cells Calcium Oxalate Crystal Uric Acid Crystals Triple Phos Crystals Other Crystals Amorphous Sediment Glitter Cells Urine Bacteria Hyaline Casts Fine Granular Casts Coarse Granular Casts Waxy Casts RBC Casts WBC Casts Urine Mucus Urine Other Urine Trichomonas Urine Yeast Ur Yeast w Hyphae Urine Yeast (Budding) Urine Sperm Urine Culture Reflexed Urine Total Volume 11/28/19 11/28/19 11/28/19 21:25 21:25 21:30 WBC RBC Hgb Hct MCV MCH MCHC RDW Plt Count MPV Neutrophils % Lymphocytes % Monocytes % Eosinophils % Basophils % Absolute Neutrophils Absolute Lymphocytes Absolute Monocytes Absolute Eosinophils Absolute Basophils PT 13.9 H INR 1.18 APTT 32.5 Sodium Potassium Chloride Carbon Dioxide BUN Creatinine Estimated GFR Glucose Lactic Acid Calcium Total Bilirubin Direct Bilirubin AST ALT Alkaline Phosphatase Creatine Kinase CK-MB (CK-2) Rapid Troponin I NT-Pro-B Natriuret Pep Serum Total Protein Albumin Globulin Albumin/Globulin Ratio Amylase Lipase Procalcitonin 0.49 Urine RBC Cancelled Urine WBC Cancelled Ur Squamous Epith Cells Cancelled Ur Urothelial Cells Cancelled Calcium Oxalate Crystal Cancelled Uric Acid Crystals Cancelled Triple Phos Crystals Cancelled Other Crystals Cancelled Amorphous Sediment Cancelled Glitter Cells Cancelled Urine Bacteria Cancelled Hyaline Casts Cancelled Fine Granular Casts Cancelled Coarse Granular Casts Cancelled Waxy Casts Cancelled RBC Casts Cancelled WBC Casts Cancelled Urine Mucus Cancelled Urine Other Cancelled Urine Trichomonas Cancelled Urine Yeast Cancelled Ur Yeast w Hyphae Cancelled Urine Yeast (Budding) Cancelled Urine Sperm Cancelled Urine Culture Reflexed Cancelled Urine Total Volume Cancelled 11/28/19 23:10 WBC RBC Hgb Hct MCV MCH MCHC RDW Plt Count MPV Neutrophils % Lymphocytes % Monocytes % Eosinophils % Basophils % Absolute Neutrophils Absolute Lymphocytes Absolute Monocytes Absolute Eosinophils Absolute Basophils PT INR APTT Sodium Potassium Chloride Carbon Dioxide BUN Creatinine Estimated GFR Glucose Lactic Acid 1.8 Calcium Total Bilirubin Direct Bilirubin AST ALT Alkaline Phosphatase Creatine Kinase CK-MB (CK-2) Rapid Troponin I NT-Pro-B Natriuret Pep Serum Total Protein Albumin Globulin Albumin/Globulin Ratio Amylase Lipase Procalcitonin Urine RBC Urine WBC Ur Squamous Epith Cells Ur Urothelial Cells Calcium Oxalate Crystal Uric Acid Crystals Triple Phos Crystals Other Crystals Amorphous Sediment Glitter Cells Urine Bacteria Hyaline Casts Fine Granular Casts Coarse Granular Casts Waxy Casts RBC Casts WBC Casts Urine Mucus Urine Other Urine Trichomonas Urine Yeast Ur Yeast w Hyphae Urine Yeast (Budding) Urine Sperm Urine Culture Reflexed Urine Total Volume Medications List Reviewed: Yes Assessment & Plan Physician Review Additional Text: Impression: Bilateral COVID pneumonia Right upper extremity weakness, bilateral upper extremity numbness, possible slurred speech suspect subacute CVA to the left frontal lobe complicated with multi level cervical spondylosis Diabetes mellitus type 2 [id number]-lyymqlexv with hyperglycemia Hypertension Hyperlipidemia Diabetic neuropathy BPH Plan: Bilateral COVID pneumonia: Monitor closely On steroids Covid 19 positive Right upper extremity weakness, bilateral upper extremity numbness, possible slurred speech suspect subacute CVA to the left frontal lobe complicated with multi level cervical spondylosis: CT scan reviewed. Subacute CVA. Appreciate help from Neurology. Continue aspirin / Plavix. Continue Lovenox at current dose at this time. increase statin medication. MRI, echocardiogram, and carotid Doppler. Physical therapy/occupational therapy/and speech therapy. Patient may require rehab but will determine his needs in the next 1-2 days. Diabetes mellitus type 2 [id number]-[id number] with hyperglycemia: On basal insulin for better diabetic control since the patient is getting IV Decadron for COVID. Continue sliding scale. Monitor Accu-Cheks. Hypertension: discontinued lisinopril due to cough. Change to losartan. Permissible hypertension Hold losartan if systolic less than 140. Hyperlipidemia: Increase statin medication Diabetic neuropathy: Will provide medication BPH: Continue medication Time Spent Managing Pts Care (In Minutes): 45
[2019-12-01] MEDS: SERTRALINE HCL 50 MG TAB PO SCH (12:20)
--- NOTE | 2019-12-01 13:46 | RAD REPORT ---
EXAM DESCRIPTION: RAD - Chest Single View - 12/01/2019 1:40 pm CLINICAL HISTORY: SOB Chest pain. COMPARISON: Chest Single View dated 11/28/2019 FINDINGS: Portable technique limits examination quality. Moderate bilateral interstitial lung opacities are again seen, essentially unchanged since comparativ e study. The heart is normal in size. No displaced fractures. IMPRESSION: Stable bilateral lung opacity since comparative study.
[2019-12-01] MEDS: ATORVASTATIN 80 MG TAB PO SCH (20:22)
[2019-12-01] MEDS: INSULIN GLARGINE 100 UNITS/ML SQ SCH (20:22)
--- NOTE | 2019-12-02 04:14 | P.PN ---
Date of Service: 12/01/19 Patient is doing really well today. Saturations are very stable. He did have a stroke but he is clinically doing really well. Will need to continue outpatient follow with physical therapy and speech therapy. I anticipate him being able to go home tomorrow morning. He feels well enough to go home. Will continue to get him out of bed and ambulate him. Will need to continue therapy as an outpatient.
[2019-12-02] MEDS: PANTOPRAZOLE 40MG TABLET PO SCH (04:58)
[2019-12-02 07:04] LABS: Basophils % 0.5 % (0-1.3); Hematocrit 34.4 % (39.6-49.0); Lymphocytes % 5.6 % (15.3-44.8); MPV 8.1 fL (7.6-11.3); RBC Red Blood Cell Count 3.92 M/uL (4.33-5.43)
[2019-12-02 07:17] LABS: Magnesium 2.2 mg/dL (1.8-2.4); Phosphorus 2.7 mg/dL (2.5-4.9); Potassium 4.4 mmol/L (3.5-5.1)
[2019-12-02] MEDS: INSULIN -REGULAR HUMAN 50 UNIT/0.5 ML ML SQ SCH ×4 (07:30→21:01)
[2019-12-02] MEDS: dexAMETHasone 4 MG/ML VIAL IV SCH (08:11)
[2019-12-02] MEDS: TAMSULOSIN 0.4 MG SR CAP PO SCH (08:11)
[2019-12-02] MEDS: FOLIC ACID 1 MG TABLET PO SCH (08:11)
[2019-12-02] MEDS: CLOPIDOGREL 75 MG TABLET PO SCH (08:11)
[2019-12-02] MEDS: DULOXETINE 30 MG CAP PO SCH (08:11)
[2019-12-02] MEDS: LOSARTAN POTASSIUM 50 MG TABLET PO SCH (08:11)
[2019-12-02] MEDS: ENOXAPARIN 40 MG/0.4 ML SQ SCH ×2 (08:12→21:00)
[2019-12-02] MEDS: SERTRALINE HCL 50 MG TAB PO SCH (08:12)
[2019-12-02] MEDS: ASPIRIN 81 MG CHEWABLE TABLET PO SCH (08:12)
[2019-12-02] MEDS: GLIMEPIRIDE 2 MG TABLET PO SCH (08:13)
[2019-12-02] MEDS: GLUCERNA SHAKE 237 ML CAN PO SCH ×2 (08:14→20:59)
[2019-12-02 08:52] LABS: Blood Morphology Comment NOT SEEN (NOT SEEN); Platelet Estimate ADEQ
--- NOTE | 2019-12-02 16:47 | P.PN ---
Subjective Date of Service: 12/02/19 Primary Care Provider: Unknown Chief Complaint: COVID-19 pneumonia Subjective: No new changes Review of Systems 10-point ROS is otherwise unremarkable Physical Examination - Vital Signs Temperature: 96.9 F Blood Pressure: 117/70 Pulse: 83 Respirations: 18 Pulse Ox (%): 93 - Physical Exam General: Alert, In no apparent distress HEENT: Atraumatic, Normocephalic Neck: Supple, 2+ carotid pulse no bruit Respiratory: Clear to auscultation bilaterally Cardiovascular: Regular rate/rhythm Capillary refill: <2 Seconds Gastrointestinal: Soft and benign, W/out hepatosplenomegaly Musculoskeletal: No clubbing, No swelling Integumentary: No rashes, No tenderness/swelling Neurological: Normal strength at 5/5 x4 extr Lymphatics: No axilla or inguinal lymphadenopathy - Studies Medications List Reviewed: Yes Assessment & Plan Physician Review Additional Text: Impression: Bilateral COVID pneumonia Right upper extremity weakness, bilateral upper extremity numbness, possible slurred speech 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 Appreciate help from Neurology. Continue aspirin / Plavix. Continue Lovenox at current dose at this time. MRI, echocardiogram, and carotid Doppler Noted Physical therapy/occupational therapy/and speech therapy help appreciated Possible DC to Rehab vs Home with Diabetes mellitus type 2 xtj-gwslscn-xlrsjhrmg with hyperglycemia: On basal insulin for better diabetic control since the patient is getting IV Decadron for COVID. Continue sliding scale. Monitor Accu-Cheks. Hypertension: discontinued lisinopril due to cough. Change to losartan. Permissible hypertension Hold losartan if systolic less than 140. Hyperlipidemia: Increase statin medication Diabetic neuropathy: Will provide medication BPH: Continue medication
[2019-12-02] MEDS: INSULIN GLARGINE 100 UNITS/ML SQ SCH (21:00)
[2019-12-02] MEDS: ATORVASTATIN 80 MG TAB PO SCH (21:00)
--- NOTE | 2019-12-03 04:11 | P.PN ---
Date of Service: 12/02/19 Spoke with patient. He is doing well. Participating well with therapy and ambulating in his room without assistance. He has done well during the hospital course. At this time, patient is stable for discharge in the morning. We do need to get with case management and make sure he has assistance at home. We also need to make sure he has home health to have physical therapy and speech therapy. Home health will have to be willing to take care of a COVID-19 positive patient. Hopefully we can get all this worked out prior to discharge in the a.m..
[2019-12-03] MEDS: PANTOPRAZOLE 40MG TABLET PO SCH (05:49)
[2019-12-03] MEDS: predniSONE 20 MG TAB PO SCH (05:49)
[2019-12-03] MEDS: INSULIN -REGULAR HUMAN 50 UNIT/0.5 ML ML SQ SCH ×4 (07:30→20:14)
[2019-12-03] MEDS: ENOXAPARIN 40 MG/0.4 ML SQ SCH ×2 (08:09→20:15)
[2019-12-03] MEDS: TAMSULOSIN 0.4 MG SR CAP PO SCH (08:09)
[2019-12-03] MEDS: FOLIC ACID 1 MG TABLET PO SCH (08:09)
[2019-12-03] MEDS: DULOXETINE 30 MG CAP PO SCH (08:09)
[2019-12-03] MEDS: ASPIRIN 81 MG CHEWABLE TABLET PO SCH (08:10)
[2019-12-03] MEDS: SERTRALINE HCL 50 MG TAB PO SCH (08:10)
[2019-12-03] MEDS: CLOPIDOGREL 75 MG TABLET PO SCH (08:10)
[2019-12-03] MEDS: GLUCERNA SHAKE 237 ML CAN PO SCH ×2 (08:10→20:22)
[2019-12-03] MEDS: GLIMEPIRIDE 2 MG TABLET PO SCH (08:10)
[2019-12-03] MEDS ORDERED: predniSONE 20 MG TAB PO SCH (09:00)
--- NOTE | 2019-12-03 12:40 | P.PN ---
Subjective Date of Service: 12/03/19 Primary Care Provider: Unknown Chief Complaint: COVID-19 pneumonia Subjective: No new changes Review of Systems 10-point ROS is otherwise unremarkable Physical Examination - Vital Signs Temperature: 97.8 F Blood Pressure: 128/63 Pulse: 88 Respirations: 16 Pulse Ox (%): 98 - Physical Exam General: Alert, In no apparent distress HEENT: Atraumatic, Normocephalic Neck: Supple Respiratory: Clear to auscultation bilaterally Cardiovascular: Normal pulses, Regular rate/rhythm Capillary refill: <2 Seconds Gastrointestinal: Soft and benign, W/out hepatosplenomegaly Musculoskeletal: No clubbing Integumentary: No rashes Neurological: Other (Alert , Awake ) - Studies Medications List Reviewed: Yes Assessment & Plan Physician Review Additional Text: Impression: Bilateral COVID pneumonia Right upper extremity weakness, bilateral upper extremity numbness, possible slurred speech 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 Appreciate help from Neurology. Continue aspirin / Plavix. Continue Lovenox at current dose at this time. MRI, echocardiogram, and carotid Doppler Noted Physical therapy/occupational therapy/and speech therapy help appreciated Possible DC to Rehab vs Home with Diabetes mellitus type 2 zvn-sczkzfq-gwqjwwbku with hyperglycemia: On basal insulin for better diabetic control since the patient is getting IV Decadron for COVID. Continue sliding scale. Monitor Accu-Cheks. Hypertension: discontinued lisinopril due to cough. Change to losartan. Permissible hypertension Hold losartan if systolic less than 140. Hyperlipidemia: Increase statin medication Diabetic neuropathy: Will provide medication BPH: Continue medication Disposition : possible Dc to home with home health versus rehab in a.m. Case management consult for placement Time Spent Managing Pts Care (In Minutes): 40
[2019-12-03] MEDS: ATORVASTATIN 80 MG TAB PO SCH (20:15)
[2019-12-03] MEDS: INSULIN GLARGINE 100 UNITS/ML SQ SCH (20:21)
[2019-12-03 22:00] VITALS: O2SAT 97
[2019-12-04] MEDS: PANTOPRAZOLE 40MG TABLET PO SCH (05:14)
[2019-12-04] MEDS: GLUCERNA SHAKE 237 ML CAN PO SCH (09:00)
[2019-12-04 09:03] VITALS: TEMP 98
[2019-12-04] MEDS: INSULIN -REGULAR HUMAN 50 UNIT/0.5 ML ML SQ SCH ×2 (09:11→11:30)
[2019-12-04] MEDS: ASPIRIN 81 MG CHEWABLE TABLET PO SCH (09:11)
[2019-12-04] MEDS: DULOXETINE 30 MG CAP PO SCH (09:11)
[2019-12-04] MEDS: predniSONE 20 MG TAB PO SCH (09:11)
[2019-12-04] MEDS: GLIMEPIRIDE 2 MG TABLET PO SCH (09:11)
[2019-12-04] MEDS: TAMSULOSIN 0.4 MG SR CAP PO SCH (09:12)
[2019-12-04] MEDS: FOLIC ACID 1 MG TABLET PO SCH (09:12)
[2019-12-04] MEDS: ENOXAPARIN 40 MG/0.4 ML SQ SCH (09:13)
[2019-12-04] MEDS: CLOPIDOGREL 75 MG TABLET PO SCH (09:13)
[2019-12-04] MEDS: SERTRALINE HCL 50 MG TAB PO SCH (09:13)
--- NOTE | 2019-12-04 11:46 | P.DS ---
Admission Date: 11/28/19 Discharge Date: 12/04/19 Primary Care Provider: Unknown Disposition: DC HOME/HOME HEALTH CARE Discharge Condition: GOOD Reason for Admission: COVID-19 pneumonia Brief History of Present Illness: 69-year-old gentleman who came to the hospital with worsening shortness of breath. Patient was diagnosed with COVID-19 1 week prior. Patient's symptoms have gradually gotten worse. Patient states he was not taking any additional medication. He had been feeling well, and over the last few days he noticed that he was having a hard time with his breathing. He came into the ER tonight, and he was found with pneumonia. Patient appears to have COVID-19 pneumonia. Will go ahead and start him on IV steroids, albuterol inhaler, steroid inhaler if available, IV zithromycin, and anticoagulation. Patient will be admitted to the hospital for further evaluation. 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 which was found to have bilateral core pneumonia for which was started on IV steroids. 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 Appreciate help from Neurology. Continue aspirin / Plavix. Continue Lovenox at current dose at this time. MRI, echocardiogram, and carotid Doppler Noted , Physical therapy/occupational therapy/and speech therapy help appreciated Diabetes mellitus type 2 bze-sylgujv-xitzqkkrg with hyperglycemia: Was started on basal insulin for better diabetic control since the patient is getting IV Decadron for COVID. Continued sliding scale. For Hypertension: discontinued lisinopril due to cough. Changed to losartan. Hyperlipidemia: Increase statin medication, Diabetic neuropathy: Will provide medication BPH: Continue medication Disposition : possible Dc to home with home health versus rehab Case management consult for placement he is being discharged to home with home health Vital Signs/Physical Exam: Temp Pulse Resp BP Pulse Ox 98.0 F 86 18 114/72 96 12/04/19 08:00 12/04/19 08:00 12/04/19 08:00 12/04/19 08:00 12/04/19 08:00 General: Alert, In no apparent distress HEENT: Atraumatic, Normocephalic Neck: Supple Respiratory: Clear to auscultation bilaterally, Normal air movement Cardiovascular: No edema, Regular rate/rhythm Capillary refill: <2 Seconds Gastrointestinal: Soft and benign Musculoskeletal: No clubbing Integumentary: No rashes Neurological: Other (Alert , Awake ) Laboratory Data at Discharge: WBC 17.8 K/uL (4.3-10.9) H 12/02/19 06:00 Hgb 11.7 g/dL (13.6-17.9) L 12/02/19 06:00 Hct 34.4 % (39.6-49.0) L 12/02/19 06:00 Plt Count 546 K/uL (152-406) H 12/02/19 06:00 PT 14.7 SECONDS (9.5-12.5) H 11/29/19 06:20 INR 1.25 11/29/19 06:20 APTT 30.1 SECONDS (24.3-36.9) 12/01/19 06:12 Sodium 132 mmol/L (136-145) L 12/02/19 06:00 Potassium 4.4 mmol/L (3.5-5.1) 12/02/19 06:00 BUN 27 mg/dL (7-18) H 12/02/19 06:00 Creatinine 1.02 mg/dL (0.55-1.3) 12/02/19 06:00 Glucose 177 mg/dL (74-106) H 12/02/19 06:00 Phosphorus 2.7 mg/dL (2.5-4.9) 12/02/19 06:00 Magnesium 2.2 mg/dL (1.8-2.4) 12/02/19 06:00 Total Bilirubin 0.9 mg/dL (0.2-1.0) 11/28/19 21:25 AST 26 U/L (15-37) 11/28/19 21:25 ALT 27 U/L (12-78) 11/28/19 21:25 Alkaline Phosphatase 114 U/L (45-117) 11/28/19 21:25 Troponin I < 0.02 ng/mL (0.0-0.045) 11/29/19 06:20 Triglycerides 109 mg/dL (<150) 11/29/19 06:20 Cholesterol 149 mg/dL (<200) 11/29/19 06:20 HDL Cholesterol 31 mg/dL (40-60) L 11/29/19 06:20 Cholesterol/HDL Ratio 4.81 11/29/19 06:20 Amylase 44 U/L (25-115) 11/28/19 21:25 Lipase 63 U/L (73-393) L 11/28/19 21:25 Home Medications: Canagliflozin [Invokana] 100 mg PO DAILY 12/17/15 Glimepiride [Amaryl] 4 mg PO BREAKFAST 12/17/15 Lovastatin 40 mg PO BEDTIME 12/17/15 hydroCHLOROthiazide [Hydrochlorothiazide*] 12.5 mg PO DAILY 12/17/15 Hydrocodone 7.5/APAP 325 [[place] 7.5/325 mg] 1 tab PO Q6H PRN #30 tab 12/26/15 Acetaminophen/Diphenhydramine [Tylenol Pm Ex-Strength Caplet] 2 each PO BEDTIME PRN 11/29/19 Benzonatate 100 mg PO TID PRN 11/29/19 Duloxetine HCl 60 mg PO DAILY 11/29/19 Tamsulosin [Flomax*] 0.4 mg PO DAILY 11/29/19 Albuterol Inhaler [Ventolin Inhaler*] 2 puff IH Q6H PRN #1 hfa.aer.ad 12/02/19 Aspirin 162 mg PO DAILY #60 tab.chew 12/02/19 Azithromycin [Zithromax] 250 mg PO DAILY #5 tablet 12/02/19 Clopidogrel Bisulfate [Plavix*] 75 mg PO DAILY #30 tablet 12/02/19 Dexamethasone [Dexpak] 1.5 mg PO DAILY #1 tab.ds.pk 12/02/19 Losartan Potassium [Cozaar*] 50 mg PO DAILY #30 tablet 12/02/19 New Medications: Aspirin 162 mg PO DAILY #60 tab.chew Losartan Potassium [Cozaar*] 50 mg PO DAILY #30 tablet Dexamethasone [Dexpak] 1.5 mg PO DAILY #1 tab.ds.pk Clopidogrel Bisulfate [Plavix*] 75 mg PO DAILY #30 tablet Albuterol Inhaler [Ventolin Inhaler*] 2 puff IH Q6H PRN #1 hfa.aer.ad PRN Reason: Shortness Of Breath Azithromycin [Zithromax] 250 mg PO DAILY #5 tablet Patient Discharge Instructions: OK TO DC IV AND DC HOME. FOLLOW-UP WITH PRIMARY CARE PROVIDER IN 1-2 WEEKS. FOLLOW-UP WITH NEUROLOGY AND PULMONARY IN 1-2 WEEKS. RETURN TO THE ER IF symptoms worsen. CALL or TEXT DR. GONZALEZ AT [phone] IF ANY QUESTIONS REGARDING HOSPITAL STAY. PLEASE CALL THE FLOOR AT [phone] IF ANY MEDICATION OR NURSING QUESTIONS. PLEASE LEAVE NOTE FOR CASE MANAGEMENT TO ARRANGE FOR OUTPATIENT PHYSICAL THERAPY AND SPEECH THERAPY Diet: AHA Activity: Fall precautions Followup: Fredo Rosas MD [ACTIVE - CAN ADMIT] - Giovany Cuevas MD [ASSOCIATE-ACTIVE - CAN ADMIT] - Time spent managing pt's care (in minutes): 35
[2019-12-04 12:26] VITALS: BP 149/83
== END 2019-12-04 15:34 | disposition home health service (06) | DRG 177 ==
LOC: ER 21:11 → ERHOLD 23:45 → 3RD-ICU 11-29 00:10 → 4TH 11-30 13:20
PROVIDERS: ADMIT Family Medicine; ATTEND Family Medicine
PROC: 8E0ZXY6 Isolation (ICD-10-PCS; principal; 2019-11-28)
DX: U07.1 COVID-19 (principal); J12.89 Other viral pneumonia; I63.9 Cerebral infarction, unspecified; G81.91 Hemiplegia, unspecified affecting right dominant side; I10 Essential (primary) hypertension; Z88.8 Allergy status to other drugs, medicaments and biological substances; Z79.84 Long term (current) use of oral hypoglycemic drugs; Z79.82 Long term (current) use of aspirin; Z79.899 Other long term (current) drug therapy; Z89.422 Acquired absence of other left toe(s); Z89.421 Acquired absence of other right toe(s); Z89.512 Acquired absence of left leg below knee; F17.200 Nicotine dependence, unspecified, uncomplicated; E11.65 Type 2 diabetes mellitus with hyperglycemia; E78.5 Hyperlipidemia, unspecified; E11.40 Type 2 diabetes mellitus with diabetic neuropathy, unspecified; N40.0 Benign prostatic hyperplasia without lower urinary tract symptoms; R47.81 Slurred speech; R20.0 Anesthesia of skin; M47.892 Other spondylosis, cervical region
CPT/HCPCS: 36415; 70450; 70544; 70549; 70553; 71045; 72125; 80048; 80061; 80076; 82150; 82533; 82550; 82553; 82728; 82947; 83036; 83605; 83615; 83690; 83735; 83880; 84100; 84145; 84484; 85025; 85379; 85610; 85730; 86140; 87040; 92523; 93005; 93306; 93880; 96365; 96366; 96375; 97530; 99285; A9577; J0456; J0696; J1100; J1650; J1815; J7030; J7050; J7512

== ENCOUNTER 2021-08-12 13:23 | Emergency (ER) | payer OTHER ==
[2021-08-12 14:34] LABS: Absolute Lymphocytes (CBC) 0.6 K/uL (0.7-4.9); Hematocrit 39.2 % (39.6-49.0); Lymphocytes % 3.6 % (15.3-44.8); MPV 7.3 fL (7.6-11.3); RBC Red Blood Cell Count 4.41 M/uL (4.33-5.43)
[2021-08-12] MEDS ORDERED: NA CHLORIDE 0.9% 1,000 ML ONE (14:34)
[2021-08-12] MEDS ORDERED: LEVALBUTEROL 1.25 MG/3 ML NEB ONE (14:34)
[2021-08-12 14:39] LABS: Protime INR 1.26
[2021-08-12 14:54] LABS: Albumin 3.2 g/dL (3.4-5.0); Bilirubin Direct 0.4 mg/dL (0-0.2); Potassium 4.1 mmol/L (3.5-5.1); Protein, Total 7.8 g/dL (6.4-8.2); Troponin High Sensitivity 13.8 pg/mL (<58.9)
--- NOTE | 2021-08-12 14:58 | RAD REPORT ---
EXAM DESCRIPTION: RAD - Chest Single View - 08/12/2021 2:49 pm CLINICAL HISTORY: Cough;Fever;SOB Chest pain. COMPARISON: Chest Single View dated 12/01/2019; Chest Single View dated 11/28/2019 FINDINGS: Portable technique limits examination quality. Subtle interstitial lung markings are seen which could indicate a viral infection. The heart is marjorie l in size. No displaced fractures.
[2021-08-12 16:31] LABS: SARS-COV-2 RT PCR NEGATIVE (NEGATIVE)
[2021-08-12 17:30] LABS: Blood Morphology Comment NOT SEEN (NOT SEEN); Platelet Estimate ADEQ; Toxic Granulation 1+
[2021-08-12] MEDS ORDERED: ACETAMINOPHEN 500 MG TAB ONE (17:40)
--- NOTE | 2021-08-12 17:59 | EDPHYS ---
Physician Documentation [facility] Name: Naren Freeman Age: 71 yrs Sex: Male : 1950 Arrival Date: 08/12/2021 Time: 13:24 Bed 19 Private MD: ED Physician Geo Bey HPI: 08/12 13:56 This 71 yrs old Black Male presents to ER via EMS with complaints of Shortness Of pm1 Breath, Fever. 13:56 The patient has shortness of breath at rest. pm1 13:56 Onset: The symptoms/episode began/occurred 3 day(s) ago. Duration: The symptoms are pm1 continuous. The patient's shortness of breath has no apparent modifying factors. Associated signs and symptoms: Pertinent positives: productive cough, fever, Pertinent negatives: chest pain, nausea, vomiting. Severity of symptoms: in the emergency department the symptoms are worse. The patient has not experienced similar symptoms in the past. The patient has not recently seen a physician. Historical: - Allergies: 13:27 Diphenhydramine; bp - PMHx: 13:27 Diabetes - NIDDM; High Cholesterol; Hypertension; bp - Immunization history:: Adult Immunizations up to date. - Social history:: Smoking status: Patient denies any tobacco usage or history of. ROS: 13:56 ENT: Negative for injury, pain, and discharge, Cardiovascular: Negative for chest pain, pm1 palpitations, and edema. 13:56 Abdomen/GI: Negative for abdominal pain, nausea, vomiting, diarrhea, and constipation, Back: Negative for injury and pain, MS/Extremity: Negative for injury and deformity, Skin: Negative for injury, rash, and discoloration, Neuro: Negative for headache, weakness, numbness, tingling, and seizure. 13:56 Constitutional: Positive for fever, poor PO intake. 13:56 Respiratory: Positive for cough, shortness of breath. 13:56 All other systems are negative. Exam: 13:56 Constitutional: This is a well developed, well nourished patient who is awake, alert, pm1 and in no acute distress. Head/Face: Normocephalic, atraumatic. 13:56 Back: No spinal tenderness. No costovertebral tenderness. Full range of motion. Skin: Warm, dry with normal turgor. Normal color with no rashes, no lesions, and no evidence of cellulitis. MS/ Extremity: Pulses equal, no cyanosis. Neurovascular intact. Full, normal range of motion. 13:56 Cardiovascular: Exam negative for acute changes, Rate: tachycardic, Rhythm: regular, Pulses: no pulse deficits are appreciated. 13:56 Respiratory: the patient does not display signs of respiratory distress, Respirations: normal, Breath sounds: bronchial sounds, that are moderate, are heard diffusely. 13:56 Abdomen/GI: Exam negative for acute changes, Inspection: abdomen appears normal, Palpation: abdomen is soft and non-tender, in all quadrants. 13:56 Neuro: Exam negative for acute changes, Orientation: is normal, Mentation: is normal, Motor: is normal, moves all fours. Vital Signs: 13:25 BP 160 / 100; Pulse 100; Resp 20; Temp 98.9; Pulse Ox 100% on 2 lpm NC; bp 14:00 BP 129 / 71; Pulse 104; Resp 28; Pulse Ox 100% on 2 lpm NC; dw3 16:01 BP 133 / 72; Pulse 115; Resp 25; Temp 99.9(O); Pulse Ox 100% on 2 lpm NC; dw3 17:47 BP 109 / 82; Pulse 112; Resp 24; Temp 99.4(O); Pulse Ox 100% on 2 lpm NC; dw3 MDM: 14:55 Patient medically screened. pm1 17:56 Data reviewed: vital signs. Data interpreted: Pulse oximetry: on room air is 100 %. pm1 Interpretation: normal. Counseling: I had a detailed discussion with the patient and/or guardian regarding: the historical points, exam findings, and any diagnostic results supporting the discharge/admit diagnosis, lab results, radiology results, the need for outpatient follow up, to return to the emergency department if symptoms worsen or persist or if there are any questions or concerns that arise at home. 08/12 13:56 Order name: COVID-19/FLU A+B (Document "Date of Onset" if Symptomatic); Complete Time: pm1 16:41 08/12 13:56 Order name: Strep; Complete Time: 14:55 pm1 08/12 13:56 Order name: Basic Metabolic Panel; Complete Time: 14:55 pm1 08/12 13:56 Order name: CBC with Diff; Complete Time: 17:35 pm1 08/12 13:56 Order name: LFT's; Complete Time: 14:55 pm1 08/12 13:56 Order name: NT PRO-BNP; Complete Time: 14:55 pm1 08/12 13:56 Order name: PT-INR; Complete Time: 14:55 pm1 08/12 13:56 Order name: Troponin HS; Complete Time: 14:55 pm1 08/12 13:56 Order name: XRAY Chest (1 view); Complete Time: 15:11 pm1 08/12 14:46 Order name: Throat Culture EDMS 08/12 17:31 Order name: Manual Differential; Complete Time: 17:35 EDMS 08/12 13:56 Order name: EKG; Complete Time: 13:57 pm1 08/12 13:56 Order name: Cardiac monitoring; Complete Time: 14:42 pm1 08/12 13:56 Order name: EKG - Nurse/Tech; Complete Time: 14:43 pm1 08/12 13:56 Order name: IV Saline Lock; Complete Time: 14:43 pm1 08/12 13:56 Order name: Labs collected and sent; Complete Time: 14:43 pm1 08/12 13:56 Order name: O2 Per Protocol; Complete Time: 14:43 pm1 08/12 13:56 Order name: O2 Sat Monitoring; Complete Time: 14:43 pm1 Administered Medications: 14:20 Drug: NS 0.9% 500 ml Route: IV; Rate: bolus; Site: left forearm; aa5 15:00 Follow up: IV Status: Completed infusion; IV Intake: 500ml aa5 19:53 Follow up: Rate change 500 ml; IV Status: Completed infusion kd3 14:42 Drug: Xopenex (levalbuterol) 2.5 mg Route: Inhalation; dw3 14:58 Not Given (Physician Discretion): NS 0.9% 1000 ml IV at 1000 ml once aa5 15:20 Drug: NS 0.9% 500 ml Route: IV; Rate: bolus; Site: left wrist; aa5 16:01 Follow up: IV Status: Completed infusion; IV Intake: 500ml dw3 17:50 Drug: Tylenol 1000 mg Route: PO; dw3 18:46 Not Given (Physician Discretion): guaiFENesin AC (codeine-guaifenesin) Liquid (10 aa5 mg-100 mg/5 mL) 5 ml PO once 18:46 Drug: guaiFENesin Liquid 5 ml Route: PO; aa5 19:53 Follow up: Response: No adverse reaction kd3 18:46 Drug: NS 0.9% 500 ml Route: IV; Rate: bolus; Site: left forearm; aa5 19:53 Follow up: IV Status: Completed infusion kd3 Disposition: 21:57 Co-signature as Attending Physician, Geo Bey DO I was immediately available on-site ms3 in the Emergency Department for consultation in the care of the patient.. Disposition Summary: 08/12/21 17:58 Discharge Ordered Location: Home pm1 Problem: new pm1 Symptoms: have improved pm1 Condition: Stable pm1 Diagnosis - Acute upper respiratory infection, unspecified pm1 Followup: pm1 - With: Emergency Department - When: As needed - Reason: Worsening of condition Followup: pm1 - With: Private Physician - When: 2 - 3 days - Reason: Recheck today's complaints, Continuance of care, Re-evaluation by your physician Discharge Instructions: - Discharge Summary Sheet pm1 - Upper Respiratory Infection, Adult pm1 Forms: - Medication Reconciliation Form pm1 - Thank You Letter pm1 - Antibiotic Education pm1 - Prescription Opioid Use pm1 Prescriptions: - Ventolin HFA 90 mcg/actuation Inhalation HFA aerosol inhaler - inhale 1 puff by INHALATION route every 4-6 hours As needed; 1 Inhaler; pm1 Refills: 0, Product Selection Permitted - Guaifenesin AC 10-100 mg/5 mL Oral Liquid - take 10 milliliters by ORAL route every 4 hours As needed; 240 milliliter; pm1 Refills: 0, Product Selection Permitted Signatures: Dispatcher [employer] Candace Mcleod RN RN aa5 Jenaro Desir, WELL TESTING OPERATOR WELL TESTING OPERATOR pm1 Hamilton Martines RN RN bp Sims, Marcus, DO DO ms3 Chela Ag RN RN dw3 Susan Enamorado RN kd3
--- NOTE | 2021-08-12 17:59 | ER ---
Nurse's Notes [facility] Name: Naren Freeman Age: 71 yrs Sex: Male : 1950 Arrival Date: 08/12/2021 Time: 13:24 Bed 19 Private MD: Diagnosis: Acute upper respiratory infection, unspecified Presentation: 08/12 13:25 Chief complaint: EMS states: SHORTNESS OF BREATH, FEVER FOR 3 DAYS, TMAX 100.3. bp Coronavirus screen: Client presents with at least one sign or symptom that may indicate coronavirus-19. Standard/surgical mask placed on the client. Ebola Screen: No symptoms or risks identified at this time. Initial Sepsis Screen: Does the patient meet any 2 criteria? HR > 90 bpm. No. Patient's initial sepsis screen is negative. Does the patient have a suspected source of infection? No. Patient's initial sepsis screen is negative. Risk Assessment: Do you want to hurt yourself or someone else? Patient reports no desire to harm self or others. Onset of symptoms is unknown. Care prior to arrival: Medication(s) given: Normal saline infusion, 500 mL, IV initiated. 20 GA, in the left wrist. 13:25 Method Of Arrival: EMS: [facility] bp 13:25 Acuity: DIXIE 3 bp Triage Assessment: 13:27 General: Appears distressed, uncomfortable, Behavior is calm, cooperative, appropriate bp for age. Pain: Denies pain. EENT: No deficits noted. Neuro: Level of Consciousness is awake, alert, obeys commands, Oriented to Appropriate for age. Cardiovascular: Rhythm is sinus tachycardia. Respiratory: Reports shortness of breath cough that is Breath sounds are diminished bilaterally. Onset: The symptoms/episode began/occurred at an unknown time. the patient has moderate shortness of breath. GI: Reports nausea, vomiting. : No signs and/or symptoms were reported regarding the genitourinary system. Derm: No deficits noted. Musculoskeletal: No deficits noted. Historical: - Allergies: 13:27 Diphenhydramine; bp - PMHx: 13:27 Diabetes - NIDDM; High Cholesterol; Hypertension; bp - Immunization history:: Adult Immunizations up to date. - Social history:: Smoking status: Patient denies any tobacco usage or history of. Screenin:58 Abuse screen: Denies threats or abuse. Nutritional screening: No deficits noted. dw3 Tuberculosis screening: No symptoms or risk factors identified. Fall Risk IV access (20 points). Total Wilson Fall Scale indicates No Risk (0-24 pts). Assessment: 13:45 General: Appears uncomfortable. Pain: Complains of pain in right upper quadrant and dw3 left upper quadrant Pain began 2-3 days ago. Neuro: Level of Consciousness is awake, alert, obeys commands, Oriented to person, place, time, situation. Cardiovascular: Heart tones S1 S2 present Rhythm is sinus tachycardia. Respiratory: Reports shortness of breath at rest cough that is productive, Airway is patent Respiratory effort is labored, Respiratory pattern is regular, symmetrical, tachypnea Sputum is thick, brown. GI: Abdomen is round non-distended, Abd is soft X 4 quads. : Reports urgency, urinary frequency. Derm: Skin is dry, Skin is normal, Skin temperature is warm. Musculoskeletal: left BKA. 16:00 Reassessment: Patient states symptoms have improved. Neuro: Level of Consciousness is dw3 awake, alert, obeys commands, Oriented to person, place, time, situation. Respiratory: Airway is patent Respiratory effort is even, unlabored, Respiratory pattern is tachypnea. Derm: Skin is dry, Skin is normal, Skin temperature is warm. 17:47 Neuro: Level of Consciousness is awake, alert, obeys commands, Oriented to person, dw3 place, time, situation. Respiratory: Airway is patent Respiratory effort is even, unlabored, Respiratory pattern is tachypnea. Derm: Skin is dry, Skin is normal, Skin temperature is warm. Vital Signs: 13:25 BP 160 / 100; Pulse 100; Resp 20; Temp 98.9; Pulse Ox 100% on 2 lpm NC; bp 14:00 BP 129 / 71; Pulse 104; Resp 28; Pulse Ox 100% on 2 lpm NC; dw3 16:01 BP 133 / 72; Pulse 115; Resp 25; Temp 99.9(O); Pulse Ox 100% on 2 lpm NC; dw3 17:47 BP 109 / 82; Pulse 112; Resp 24; Temp 99.4(O); Pulse Ox 100% on 2 lpm NC; dw3 ED Course: 13:24 Patient arrived in ED. bp 13:26 Triage completed. bp 13:27 Arm band placed on. bp 13:32 Jenaro Desir NP is PHCP. pm1 13:32 Geo Bey DO is Attending Physician. pm1 13:45 Patient has correct armband on for positive identification. Placed in gown. Bed in low dw3 position. Call light in reach. Side rails up X2. clinical research monitor on. Pulse ox on. NIBP on. 14:00 Chela Ag, RN is Primary Nurse. dw3 14:20 Initial lab(s) drawn, by me, sent to lab. EKG done, COVID swab sent to lab. Flu and/or aa5 RSV swab sent to lab. Strep swab sent to lab. Inserted saline lock: 20 gauge in left forearm, using aseptic technique. Blood collected. 14:51 XRAY Chest (1 view) In Process Unspecified. EDMS 19:51 No provider procedures requiring assistance completed. IV discontinued, intact, kd3 bleeding controlled, No redness/swelling at site. Pressure dressing applied. Administered Medications: 14:20 Drug: NS 0.9% 500 ml Route: IV; Rate: bolus; Site: left forearm; aa5 15:00 Follow up: IV Status: Completed infusion; IV Intake: 500ml aa5 19:53 Follow up: Rate change 500 ml; IV Status: Completed infusion kd3 14:42 Drug: Xopenex (levalbuterol) 2.5 mg Route: Inhalation; dw3 14:58 Not Given (Physician Discretion): NS 0.9% 1000 ml IV at 1000 ml once aa5 15:20 Drug: NS 0.9% 500 ml Route: IV; Rate: bolus; Site: left wrist; aa5 16:01 Follow up: IV Status: Completed infusion; IV Intake: 500ml dw3 17:50 Drug: Tylenol 1000 mg Route: PO; dw3 18:46 Not Given (Physician Discretion): guaiFENesin AC (codeine-guaifenesin) Liquid (10 aa5 mg-100 mg/5 mL) 5 ml PO once 18:46 Drug: guaiFENesin Liquid 5 ml Route: PO; aa5 19:53 Follow up: Response: No adverse reaction kd3 18:46 Drug: NS 0.9% 500 ml Route: IV; Rate: bolus; Site: left forearm; aa5 19:53 Follow up: IV Status: Completed infusion kd3 Intake: 15:00 IV: 500ml; Total: 500ml. aa5 16:01 IV: 500ml; Total: 1000ml. dw3 Outcome: 17:58 Discharge ordered by . pm1 19:52 Discharged to home ambulatory. kd3 19:52 Condition: stable 19:52 Discharge instructions given to patient, Instructed on discharge instructions, follow up and referral plans. Demonstrated understanding of instructions, follow-up care, Prescriptions given X 2. 19:53 Patient left the ED. kd3 Signatures: Dispatcher [employer] EDMS Candace Tong, RN RN aa5 Jenaro Desir NP CLOTH BLEACHING RANGE TENDER pm1 Hamilton Martines RN RN bp Susan Enamorado RN RN kd3 Chela Ag RN RN dw3 Corrections: (The following items were deleted from the chart) 15:30 13:25 Care prior to arrival: Medication(s) given: Normal saline infusion, 500 mL, IV aa5 initiated. 20 GA, in the left forearm, bp 15:54 14:44 Respiratory: Respiratory effort is labored, dw3 dw3 15:54 14:44 GI: Abdomen is tender to palpation X 4 quads. dw3 dw3 15:54 14:44 : Reports urgency, urinary frequency, dw3 dw3
[2021-08-12] MEDS ORDERED: GUAIFENESIN/DM 5 ML UCUP ONE (18:45)
[2021-08-12 20:06] VITALS: O2SAT 100
[2021-08-12 20:12] VITALS: BP 109/82; TEMP 99.4
--- NOTE | 2021-08-13 07:54 | EKG ---
Test Date: 2021-08-12 Test Time: 14:12:02 Buffing Machine Operator Semiautomatic: BOO MEASUREMENT RESULTS: Intervals: Rate: 105 FL: 230 QRSD: 74 QT: 326 QTc: 430 [place]: P: 73 FL: 230 QRS: 54 T: 75 INTERPRETIVE STATEMENTS: Sinus tachycardia with 1st degree AV block Otherwise normal ECG Compared to ECG 11/28/2019 21:18:28 First degree AV block now present Electronically Signed On 08-13-21 07:52:35 CDT by Ramin Cuevas
== END 2021-08-12 19:53 | disposition home or self-care (01) ==
LOC: ER 13:23
DX: J06.9 Acute upper respiratory infection, unspecified (principal); E11.9 Type 2 diabetes mellitus without complications; I10 Essential (primary) hypertension; Z20.822 Contact with and (suspected) exposure to COVID-19; Z88.8 Allergy status to other drugs, medicaments and biological substances
CPT/HCPCS: 96361; 93005; 87070; 85025; 80048; 36415; 85610; 80076; 87081; 84484; 83880; 0240U; 71045; 96360; 99285; J7030

== ENCOUNTER → 2023-07-05 | Emergency (ER) | payer OTHER ==
[~2023-07-05] MED LIST: CEFTRIAXONE 1000 MG/VIAL ONE; HYDROCODONE/APAP 10/325 TAB ONE; ONDANSETRON 4 MG (ODT) TAB ONE; TAMSULOSIN 0.4 MG SR CAP ONE; dexAMETHasone 4 MG TAB ONE
[2023-07-05 14:18] LABS: Specific Gravity 1.023 (1.005-1.030); Urine Bacteria <20 /HPF (<20); Urine Bilirubin NEGATIVE (Negative); Urine Blood Negative (Negative); Urine Clarity Clear (Clear); Urine Color Light-Yellow (Yellow); Urine Glucose 4+ (Over) (Negative); Urine Protein 1+ (Negative); Urine RBC <5 /HPF (None Seen); Urine Urobilinogen Normal (Normal); Urine pH 6.5 (5.0-7.0)
[2023-07-05 15:10] LABS: Absolute Lymphocytes (CBC) 1.5 K/uL (0.7-4.9); Hematocrit 40.3 % (39.6-49.0); MPV 7.9 fL (7.6-11.3); Platelets 293 thou/uL (152-406); RBC Red Blood Cell Count 4.47 M/uL (4.33-5.43)
[2023-07-05 15:27] LABS: Albumin 3.8 g/dL (3.4-5.0); Bilirubin Total 0.5 mg/dL (0.2-1.0); Potassium 4.1 mEq/L (3.5-5.1); Protein, Total 7.2 g/dL (6.4-8.2)
--- NOTE | 2023-07-05 15:38 | RAD REPORT ---
EXAM DESCRIPTION: CT - Stone Protocol - 07/05/2023 2:13 pm CLINICAL HISTORY: PAIN COMPARISON: No comparisons TECHNIQUE: Thin cut axial CT imaging of the abdomen and pelvis was performed without IV contrast. Mu ltiplanar reformats were generated and reviewed. All CT scans are performed using dose optimization technique as appropriate and may include automated exposure control or mA/KV adjustment according to patient size. FINDINGS: No suspicious findings in the lung bases. The liver, spleen, adrenal glands, and pancreas show no suspicious findings. Gallbladder shows susie us calcified stones. Left cortical ill-defined interpolar multiple fluid density lesions up to 2.5 cm, smaller right renal hypoattenuating lesions as well, most notably medial right mid to lower pole in location, with a sub centimeter hyperechoic right lower pole focus, suggestive of cysts, although not well characterized. No other suspicious parenchymal findings within limits of noncontrast technique. No evidence of radi opaque calculi or hydroureteronephrosis. No dilated bowel loops or bowel wall thickening. No free air, free fluid or inflammatory stranding. N o hernia, mass or bulky lymphadenopathy. The urinary bladder is markedly distended. Markedly enlarged prostate with a situation perhaps resulting in the bladder outlet obstruction. Advanced spondylotic lumbar spine changes, most notably with lucent changes along the posterior endpl ates at L1-2 level, encroaching upon the thecal sac, as best appreciated on series 201, image 27 and series 2, image 3 image 83. No under suspicious bony findings. IMPRESSION: No acute intra-abdominal process. Marked bladder distention, with markedly enlarged prostate, which may indicate bladder outlet obstruc tion. Advanced spondylotic lumbar spine changes, encroachment upon the thecal sac at L1-2 level, which may relate to discal cyst. Findings would be better evaluated on dedicated lumbar spine MRI. Cholelithiasis. Incidentally noted presumed renal cystic lesions as above.
--- NOTE | 2023-07-05 16:48 | EDPHYS ---
Physician Documentation [facility] Name: Naren Freeman Age: 73 yrs Sex: Male : 1950 Arrival Date: 07/05/2023 Time: 13:26 Bed 16 Private MD: Campos Calabrese ED Physician Ebenezer Wesley HPI: 07/05 16:43 This 73 yrs old Black Male presents to ER via Ambulatory with complaints of Urinary marco Problem, Groin Pain. 16:43 The patient presents with urinary symptoms, dribbling of urine, dysuria, urinary marco frequency, retention, unable to void. Onset: The symptoms/episode began/occurred 1 week(s) ago. Modifying factors: The symptoms are alleviated by nothing, the symptoms are aggravated by nothing. Associated signs and symptoms: The patient has no apparent associated signs or symptoms. Severity of symptoms: At their worst the symptoms were moderate, in the emergency department the symptoms are unchanged. The patient has experienced similar episodes in the past, multiple times. Historical: - Allergies: 14:03 Benadryl; ph - PMHx: 14:03 Diabetes - NIDDM; High Cholesterol; Hypertension; ph - Immunization history:: Adult Immunizations up to date. - Social history:: Smoking status: Patient reports the use of cigarette tobacco products, denies chronic smoking, but will smoke occasionally. ROS: 16:44 Constitutional: Negative for fever, chills, and weight loss, Eyes: Negative for injury, marco pain, redness, and discharge, ENT: Negative for injury, pain, and discharge, Neck: Negative for injury, pain, and swelling, Cardiovascular: Negative for chest pain, palpitations, and edema, Respiratory: Negative for shortness of breath, cough, wheezing, and pleuritic chest pain, Back: Negative for injury and pain, MS/Extremity: Negative for injury and deformity, Skin: Negative for injury, rash, and discoloration, Neuro: Negative for headache, weakness, numbness, tingling, and seizure, Psych: Negative for depression, anxiety, suicide ideation, homicidal ideation, and hallucinations, Allergy/Immunology: Negative for hives, rash, and allergies, Endocrine: Negative for neck swelling, polydipsia, polyuria, polyphagia, and marked weight changes, Hematologic/Lymphatic: Negative for swollen nodes, abnormal bleeding, and unusual bruising, 16:44 Abdomen/GI: Positive for abdominal pain, of the suprapubic area, right lower quadrant and left lower quadrant, 16:44 : Positive for urinary frequency, small amounts, burning with urination, of the suprapubic area, right lower quadrant and left lower quadrant, Exam: 16:44 Constitutional: This is a well developed, well nourished patient who is awake, alert, marco and in no acute distress. Head/Face: Normocephalic, atraumatic. Eyes: Pupils equal round and reactive to light, extra-ocular motions intact. Lids and lashes normal. Conjunctiva and sclera are non-icteric and not injected. Cornea within normal limits. Periorbital areas with no swelling, redness, or edema. ENT: Nares patent. No nasal discharge, no septal abnormalities noted. Tympanic membranes are normal and external auditory canals are clear. Oropharynx with no redness, swelling, or masses, exudates, or evidence of obstruction, uvula midline. Mucous membranes moist. Neck: Trachea midline, no thyromegaly or masses palpated, and no cervical lymphadenopathy. Supple, full range of motion without nuchal rigidity, or vertebral point tenderness. No Meningismus. Chest/axilla: Normal chest wall appearance and motion. Nontender with no deformity. No lesions are appreciated. Cardiovascular: Regular rate and rhythm with a normal S1 and S2. No gallops, murmurs, or rubs. Normal PMI, no JVD. No pulse deficits. Respiratory: Lungs have equal breath sounds bilaterally, clear to auscultation and percussion. No rales, rhonchi or wheezes noted. No increased work of breathing, no retractions or nasal flaring. Back: No spinal tenderness. No costovertebral tenderness. Full range of motion. Skin: Warm, dry with normal turgor. Normal color with no rashes, no lesions, and no evidence of cellulitis. MS/ Extremity: Pulses equal, no cyanosis. Neurovascular intact. Full, normal range of motion. Neuro: Awake and alert, GCS 15, oriented to person, place, time, and situation. Cranial nerves II-XII grossly intact. Motor strength 5/5 in all extremities. Sensory grossly intact. Cerebellar exam normal. Normal gait. Psych: Awake, alert, with orientation to person, place and time. Behavior, mood, and affect are within normal limits. 16:44 Abdomen/GI: Inspection: distension, that is mild, Bowel sounds: normal, Palpation: moderate abdominal tenderness, in the suprapubic area, Liver: no appreciated palpable abnormalities, Hernia: not appreciated, Vital Signs: 14:00 BP 161 / 92; Pulse 97; Resp 18; Temp 98.3; Pulse Ox 100% on R/A; Weight 79.38 kg; ph Height 6 ft. 1 in. ; 15:00 BP 130 / 83; Pulse 90; Resp 16; Pulse Ox 100% on R/A; me1 16:00 BP 124 / 88; Pulse 91; Resp 16; Pulse Ox 100% on R/A; ll1 14:00 Body Mass Index 23.09 (79.38 kg, 185.42 cm) ph MDM: 13:49 Patient medically screened. marco 16:45 Differential diagnosis: nonspecific abdominal pain, UTI, urinary retention, marco prostatitis, urethritis, non-specific abd pain. Data reviewed: vital signs, nurses notes, lab test result(s), radiologic studies, CT scan. Consideration of Admission/Observation Escalation of care including admission/observation considered. I considered the following discharge prescriptions or medication management in the emergency department Medications were administered in the Emergency Department. See MAR. Independent interpretation of the following test(s) in the Emergency Department CT Scan: My interpretation is ct stone. Test considered but Not performed: Ultrasound no abd usg. Historians other than the Patient: Spouse/Significant Other: well informed. Care significantly affected by the following chronic conditions: Diabetes, Hypertension, high cholesterol. 07/05 14:04 Order name: CBC with Diff; Complete Time: 16:36 ph 07/05 14:04 Order name: CMP; Complete Time: 16:36 ph 07/05 14:04 Order name: Lipase; Complete Time: 16:36 ph 07/05 14:04 Order name: Urinalysis w/ reflexes; Complete Time: 16:36 ph 07/05 14:04 Order name: Stone Protocol CT; Complete Time: 16:36 ph 07/05 14:04 Order name: IV Saline Lock; Complete Time: 15:02 ph 07/05 14:04 Order name: Labs collected and sent; Complete Time: 15:02 ph 07/05 17:23 Order name: Lopez; Complete Time: 17:44 marco 07/05 17:23 Order name: Leg Bag; Complete Time: 18:22 marco Administered Medications: 17:12 Drug: Rocephin IV 1 grams IV at per protocol once; Given slow IV push per pharmacy me1 instructions Route: IV; Rate: per protocol; Site: right antecubital; 18:22 Follow up: Response: No adverse reaction; IV Status: Completed infusion ll1 17:13 Drug: Flomax PO 0.4 mg PO once Route: PO; me1 18:27 Follow up: Response: No adverse reaction ll1 18:27 Drug: Dexamethasone PO 4 mg PO once Route: PO; ll1 18:28 Follow up: Response: No adverse reaction ll1 18:27 Drug: Orrt[place] PO 10 mg-325 mg 1 tabs PO once Route: PO; ll1 18:28 Follow up: Response: No adverse reaction ll1 18:27 Drug: Ondansetron Oral Disintegrating Tablet Oral Disintegrating Tablet 4 mg PO once ll1 Route: PO; 18:28 Follow up: Response: No adverse reaction ll1 Disposition Summary: 07/05/23 16:48 Discharge Ordered Notes: Location: Home marco Problem: new marco Symptoms: have improved marco Condition: Stable marco Diagnosis - Other retention of urine marco - Unspecified kidney failure marco - Enlarged prostate with lower urinary tract symptoms marco - Disorder of prostate, unspecified marco - Retention of urine, unspecified - PVR 950 CC(07/05/23 18:20) marco - Sciatica marco Followup: marco - With: Campos Calabrese - When: 2 - 3 days - Reason: Recheck today's complaints, Continuance of care, Re-evaluation by your physician Followup: marco - With: Ramírez Hein MD - When: 2 - 3 days - Reason: Recheck today's complaints, Re-evaluation by your physician Discharge Instructions: - Discharge Summary Sheet marco - Indwelling Urinary Catheter Care, Adult marco - Sciatica marco - Acute Urinary Retention, Male marco - Acute Urinary Retention, Male, [id number] marco - Chronic Kidney Disease, Adult, [id number] marco - Indwelling Urinary Catheter Care, Adult, [id number] marco - Benign Prostatic Hyperplasia marco Forms: - Medication Reconciliation Form marco - Thank You Letter marco - Antibiotic Education marco - Prescription Opioid Use marco - Patient Portal Instructions marco - Leadership Thank You Letter marco Prescriptions: - Flomax 0.4 mg Oral capsule - take 1 capsule ORAL route every 24 hours; 30 capsule; Refills: 0, Product marco Selection Permitted - acetaminophen-codeine 300-30 mg Oral tablet - take 2 tablet ORAL route every 6 hours; 20 tablet; Refills: 0, Product marco Selection Permitted - dexamethasone 2 mg Oral tablet - take 1 tablet ORAL route every 12 hours; 8 tablet; Refills: 0, Product marco Selection Permitted - Cipro 250 mg Oral tablet - take 1 tablet ORAL route every 12 hours; 14 tablet; Refills: 0, Product marco Selection Permitted Signatures: Dispatcher [employer] EDEbenezer Bill MD MD cha Hall, Patricia, RN RN [facility] RN RN 1 Kavitha Pradhan RN RN me1 Corrections: (The following items were deleted from the chart) 17:19 16:42 Lopez ordered. [facility] 17:23 16:48 Retention of urine, unspecified marco marco 18:20 17:23 Retention of urine, unspecified - PVR 750 CC [facility]
--- NOTE | 2023-07-05 16:48 | ER ---
Nurse's Notes [facility] Name: Naren Freeman Age: 73 yrs Sex: Male : 1950 Arrival Date: 07/05/2023 Time: 13:26 Bed 16 Private MD: Campos Calabrese Diagnosis: Retention of urine, unspecified-PVR 950 CC;Other retention of urine;Unspecified kidney failure;Enlarged prostate with lower urinary tract symptoms;Disorder of prostate, unspecified;Sciatica Presentation: 07/05 14:00 Chief complaint: Patient states: Recent hx of "small kidney stones", c/o low back pain ph radiating to groin that has been ongoing for months, worse today, decreased urination, denies fever, chills, no N/V. Coronavirus screen: Vaccine status: Patient reports receiving the 2nd dose of the covid vaccine. Ebola Screen: No symptoms or risks identified at this time. Initial Sepsis Screen: Does the patient meet any 2 criteria? No. Patient's initial sepsis screen is negative. Does the patient have a suspected source of infection? Yes: Dysuria/Frequency/Urgency/UTI. Risk Assessment: Do you want to hurt yourself or someone else? Patient reports no desire to harm self or others. Onset of symptoms was July 05, 2023. 14:00 Method Of Arrival: Ambulatory ph 14:00 Acuity: DIXIE 3 ph Historical: - Allergies: 14:03 Benadryl; ph - PMHx: 14:03 Diabetes - NIDDM; High Cholesterol; Hypertension; ph - Immunization history:: Adult Immunizations up to date. - Social history:: Smoking status: Patient reports the use of cigarette tobacco products, denies chronic smoking, but will smoke occasionally. Screenin:09 [facility] ED Fall Risk Assessment (Adult) History of falling in the last 3 months, me1 including since admission No falls in past 3 months (0 pts) Confusion or Disorientation No (0 pts) Intoxicated or Sedated No (0 pts) Impaired Gait No (0 pts) Mobility Assist Device Used No (0 pt) Altered Elimination No (0 pt) Score/Fall Risk Level 0 - 2 = Low Risk Maintained a safe environment, Provided non-skid footwear, Hourly rounding (assess needs \\T\\ fall precautionary measures) done. Abuse screen: Denies threats or abuse. Nutritional screening: No deficits noted. Tuberculosis screening: No symptoms or risk factors identified. Assessment: 15:09 General: Appears uncomfortable, well groomed, well developed, well nourished, Behavior me1 is calm, cooperative, appropriate for age, Reports Recent hx of "small kidney stones", c/o low back pain radiating to groin that has been ongoing for months, worse today, decreased urination, denies fever, chills, no N/V. Pain: Complains of pain in back Pain radiates to groin. Neuro: Level of Consciousness is awake, alert, obeys commands, Oriented to person, place, time, situation, Appropriate for age. Cardiovascular: Capillary refill < 3 seconds Patient's skin is warm and dry. Respiratory: Airway is patent Trachea midline Respiratory effort is even, unlabored, Respiratory pattern is regular, symmetrical. : Reports pain in bilateral flank(s), decreased urination. Vital Signs: 14:00 BP 161 / 92; Pulse 97; Resp 18; Temp 98.3; Pulse Ox 100% on R/A; Weight 79.38 kg; ph Height 6 ft. 1 in. ; 15:00 BP 130 / 83; Pulse 90; Resp 16; Pulse Ox 100% on R/A; me1 16:00 BP 124 / 88; Pulse 91; Resp 16; Pulse Ox 100% on R/A; ll1 14:00 Body Mass Index 23.09 (79.38 kg, 185.42 cm) ph ED Course: 13:28 Patient arrived in ED. mr 13:29 Campos Calabrese is Private Physician. mr 13:49 Ebenezer Wesley MD is Attending Physician. marco 14:03 Triage completed. ph 14:03 Arm band placed on Patient placed in waiting room, Patient notified of wait time. Urine ph obtained. CT ordered. 14:[address] In Process Unspecified. EDMS 14:36 Kavitha Pradhan, ESTRELLA is Primary Nurse. me1 15:01 Inserted saline lock: 20 gauge in right antecubital area, using aseptic technique. me1 15:02 CBC with Diff Sent. me1 15:02 CMP Sent. me1 15:02 Lipase Sent. me1 15:09 Patient has correct armband on for positive identification. Bed in low position. Call me1 light in reach. Side rails up X2. Provided Education on: POC. Verbalized understanding. . 15:09 No provider procedures requiring assistance completed. me1 16:46 Campos Calabrese is Referral Physician. [facility] 16:47 Ramírez Hein MD is Referral Physician. [facility] 18:33 IV discontinued, intact, bleeding controlled, No redness/swelling at site. Pressure mb9 dressing applied. Administered Medications: 17:12 Drug: Rocephin IV 1 grams IV at per protocol once; Given slow IV push per pharmacy me1 instructions Route: IV; Rate: per protocol; Site: right antecubital; 18:22 Follow up: Response: No adverse reaction; IV Status: Completed infusion ll1 17:13 Drug: Flomax PO 0.4 mg PO once Route: PO; me1 18:27 Follow up: Response: No adverse reaction ll1 18:27 Drug: Dexamethasone PO 4 mg PO once Route: PO; ll1 18:28 Follow up: Response: No adverse reaction ll1 18:27 Drug: [place] PO 10 mg-325 mg 1 tabs PO once Route: PO; ll1 18:28 Follow up: Response: No adverse reaction ll1 18:27 Drug: Ondansetron Oral Disintegrating Tablet Oral Disintegrating Tablet 4 mg PO once ll1 Route: PO; 18:28 Follow up: Response: No adverse reaction ll1 Medication: 15:09 VIS not applicable for this client. me1 Outcome: 16:48 Discharge ordered by . [facility] 18:33 Discharged to home ambulatory, with family, mb9 18:33 Condition: stable 18:33 Discharge instructions given to patient, family, Instructed on discharge instructions, follow up and referral plans. Demonstrated understanding of instructions, follow-up care, medications, Prescriptions given X 4, 18:33 Patient left the ED. mb9 Signatures: Dispatcher [employer] EDEbenezer Bill MD MD cha Rivera, Mary, Reg Reg mr Anna Valle, RN Costa Love ph, RN RN 1 Kim Beckwith, ESTRELLA RN mb9 Kavitha Pradhan RN RN me1 Corrections: (The following items were deleted from the chart) 15:09 14:00 Chief complaint: Patient states: Recent hx of "small kidney stones", c/o low back me1 pain radiating to groin that has been ongoing for months, worse today, decreased urination, denies fever, chills, no N/V ph 15:15 15:00 BP 133 / 90; Pulse 68bpm; Resp 16bpm; Pulse Ox 100% RA; me1 me1
[2023-07-05 19:05] VITALS: BP 124/88; TEMP 98.3; O2SAT 100
== END ==
LOC: ER 13:26
DX: N40.1 Benign prostatic hyperplasia with lower urinary tract symptoms (principal); N19 Unspecified kidney failure; N42.9 Disorder of prostate, unspecified; E11.9 Type 2 diabetes mellitus without complications; I10 Essential (primary) hypertension; F17.210 Nicotine dependence, cigarettes, uncomplicated; Z88.8 Allergy status to other drugs, medicaments and biological substances
CPT/HCPCS: 85025; 81001; 36415; 83690; 80053; 76377; 74176; J8540; Q0162; J0696

== ENCOUNTER → 2023-08-09 | Emergency (ER) | payer OTHER ==
--- NOTE | 2023-08-09 16:30 | EDPHYS ---
Physician Documentation [facility] Name: Naren Freeman Age: 73 yrs Sex: Male : 1950 Arrival Date: 08/09/2023 Time: 16:20 Bed IW1 Private MD: ED Physician Robert Lubin HPI: 08/08 16:41 This 73 yrs old Black Male presents to ER via Unassigned with complaints of Removal of kb catheter. 16:41 Pt is a 73 year old male who came in 3 weeks ago for urinary retention and had a harper kb placed. Came in today to have harper removed. States he followed up with PCP on Wednesday and was told he could come to the ER for removal of harper. Called for appt with Dr Hein but they didn't have anything until September so they have him on a list. States he isn't having any problems with the harper, but it is inconvenient so he would like it removed. . ROS: 16:41 Constitutional: As per HPI kb Exam: 16:41 Constitutional: This is a well developed, well nourished patient who is awake, alert, kb and in no acute distress. Head/Face: Normocephalic, atraumatic. ENT: Moist Mucous membranes Cardiovascular: Regular rate Respiratory: Respirations even and unlabored. No increased work of breathing. Talking in full sentences Abdomen/GI: Soft, non-tender. No distention Skin: Warm, dry with normal turgor. Normal color. MS/ Extremity: Pulses equal, no cyanosis. Neurovascular intact. Full, normal range of motion. Neuro: Awake and alert, GCS 15, oriented to person, place, time, and situation. Moves all extremities. Normal gait. MDM: 16:23 Patient medically screened. kb 16:44 Differential diagnosis: UTI, Harper catheter problem. Data reviewed: vital signs, nurses kb notes. Counseling: I had a detailed discussion with the patient and/or guardian regarding the historical points, exam findings, and any diagnostic results supporting the discharge/admit diagnosis, the need for outpatient follow up, a urologist, to return to the emergency department if symptoms worsen or persist or if there are any questions or concerns that arise at home. ED course: I recommended the harper stay in place at this time. I educated pt that we could remove the harper, but it is likely that he would have urinary retention return and he would have to have a new one placed. Pt agrees to keep harper in at this time and he will follow up with urology. . Administered Medications: No medications were administered Disposition Summary: 08/09/23 16:29 Discharge Ordered Notes: Location: Home kb Condition: Stable kb Diagnosis - Encounter for removal of harper kb Followup: kb - With: Emergency Department - When: As needed - Reason: Worsening of condition Followup: kb - With: Private Physician - When: 2 - 3 days - Reason: Recheck today's complaints, Continuance of care, Re-evaluation by your physician Discharge Instructions: - Discharge Summary Sheet kb - Indwelling Urinary Catheter Care, Adult, [id number] kb Forms: - Medication Reconciliation Form kb - Thank You Letter kb - Antibiotic Education kb - Prescription Opioid Use kb - Patient Portal Instructions kb - Leadership Thank You Letter kb Signatures: Argelia Trent FNP-C FNP-Ckb
--- NOTE | 2023-08-09 16:45 | ER ---
Nurse's Notes [facility] Name: Naren Freeman Age: 73 yrs Sex: Male : 1950 Arrival Date: 08/09/2023 Time: 16:20 Bed IW1 Private MD: Diagnosis: Encounter for removal of harper Assessment: 08/08 16:42 Reassessment: pt seen by provider and left prior to triage/discharge. mb9 ED Course: 16:23 Patient arrived in ED. im 16:23 Argelia Trent FNP-C is [facility]. kb 16:23 Robert Lubin MD is Attending Physician. kb 16:42 Arm band placed on. mb9 Administered Medications: No medications were administered Outcome: 16:29 Discharge ordered by MD. kb 16:43 Discharged to home ambulatory, mb9 16:43 Discharged to pt left prior to triage/discharge 16:43 Condition: stable 16:44 Patient left the ED. mb9 Signatures: Argelia Trent FNP-C FNP-Ckb Breneman, Mary Beth RN RN mb9 Raysa Bonilla im
== END ==
LOC: ER 16:20
DX: Z46.6 Encounter for fitting and adjustment of urinary device (principal)

== ENCOUNTER 2023-09-07 09:34 | Emergency (ER) | payer OTHER ==
[2023-09-07 10:33] LABS: Specific Gravity 1.014 (1.005-1.030); Sqamous Epithelial None Seen /HPF (None Seen); Urine Bacteria 20-50 /HPF (<20); Urine Bilirubin NEGATIVE (Negative); Urine Blood 3+ (Negative); Urine Clarity Extremely Turbid (Clear); Urine Color Light-Orange (Yellow); Urine Culture Reflex Order REFLEXED; Urine Glucose 1+ (Negative); Urine Ketones TRACE (Negative); Urine Microscopic Reflex YN ORDER UMIC; Urine Nitrite NEGATIVE (Negative); Urine Protein 1+ (Negative); Urine RBC >50 /HPF (None Seen); Urine Urobilinogen Normal (Normal); Urine WBC >50 /HPF (<5); Urine WBC Clump Few /HPF (None Seen); Urine Yeast (Budding) Trace /HPF (None Seen); Urine pH 5.5 (5.0-7.0)
[2023-09-07] MEDS ORDERED: CIPROFLOXACIN HCL 500 MG TAB ONE (10:52)
--- NOTE | 2023-09-07 10:53 | ER ---
Nurse's Notes [facility] Name: Naren Freeman Age: 73 yrs Sex: Male : 1950 Arrival Date: 09/07/2023 Time: 09:34 Bed 18 Private MD: Diagnosis: Mechanical complication of urinary (indwelling) catheter;UTI/ Urinary tract infection, site not specified Presentation: 09/06 09:57 Chief complaint: Patient states: "I've had this Lopez catheter in for 2 months and it's mb9 been causing me pain for the past day. I need it replaced". Coronavirus screen: Vaccine status: Patient reports receiving the 2nd dose of the covid vaccine. Ebola Screen: No symptoms or risks identified at this time. Initial Sepsis Screen: Does the patient meet any 2 criteria? No. Patient's initial sepsis screen is negative. Does the patient have a suspected source of infection? No. Patient's initial sepsis screen is negative. Risk Assessment: Do you want to hurt yourself or someone else? Patient reports no desire to harm self or others. Onset of symptoms was September 07, 2023. 09:57 Method Of Arrival: Ambulatory mb9 09:57 Acuity: DIXIE 4 mb9 Triage Assessment: 09:58 General: Appears uncomfortable, Behavior is calm, cooperative. Pain: Complains of pain mb9 in pelvis. EENT: No signs and/or symptoms were reported regarding the EENT system. Neuro: [place] Agitation-Sedation Scale (RASS): 0 - Alert and Calm Level of Consciousness is awake, alert, obeys commands, Oriented to person, place, time, situation, Appropriate for age. Cardiovascular: Patient's skin is warm and dry. Respiratory: Airway is patent Respiratory effort is even, unlabored, Respiratory pattern is regular, symmetrical. GI: No signs and/or symptoms were reported involving the gastrointestinal system. : Lopez in place Reports pain. Derm: Skin is pink, warm \\T\\ dry. Musculoskeletal: Range of motion: intact in all extremities. Historical: - Allergies: 09:56 Benadryl; mb9 09:56 Diphenhydramine; mb9 - Home Meds: 09:56 Flomax 0.4 mg oral capsule 1 cap daily [Active]; atorvastatin 40 mg oral tablet mb9 [Active]; Glipizide Oral [Active]; - PMHx: 09:56 Diabetes - NIDDM; High Cholesterol; Hypertension; enlarged prostate; mb9 - PSHx: 09:56 None; mb9 - Immunization history:: Adult Immunizations up to date. - Infectious Disease History:: Denies. - Family history:: not pertinent. - Social history:: Smoking status: Patient reports the use of cigarette tobacco products, denies chronic smoking, but will smoke occasionally. - Hospitalizations: : No recent hospitalization is reported. Screenin:59 [facility] ED Fall Risk Assessment (Adult) History of falling in the last 3 months, mb9 including since admission No falls in past 3 months (0 pts) Confusion or Disorientation No (0 pts) Intoxicated or Sedated No (0 pts) Impaired Gait No (0 pts) Mobility Assist Device Used No (0 pt) Altered Elimination No (0 pt) Score/Fall Risk Level 0 - 2 = Low Risk Oriented to surroundings, Maintained a safe environment, Educated pt \\T\\ family on fall prevention, incl call for assistance when getting out of bed, Assessed \\T\\ reinforced patient's understanding of fall precautions. Abuse screen: Denies threats or abuse. Nutritional screening: No deficits noted. Tuberculosis screening: No symptoms or risk factors identified. Assessment: 10:24 Reassessment: see triage assessment. mb9 10:55 Reassessment: Patient appears in no apparent distress at this time. Patient and/or mb9 family updated on plan of care and expected duration. Pain level reassessed. Patient is alert, oriented x 3, equal unlabored respirations, skin warm/dry/pink. Patient states feeling better. Patient states symptoms have improved. Vital Signs: 09:57 Pulse 84; Resp 18; Temp 98.4; Pulse Ox 100% ; Weight 80.74 kg; Height 6 ft. 1 in. ; mb9 Pain 10/10; 10:24 BP 134 / 86; mb9 10:55 BP 122 / 86; Pulse 78; Resp 18; Pulse Ox 100% ; mb9 09:57 Body Mass Index 23.48 (80.74 kg, 185.42 cm) mb9 09:57 Pain Scale: Adult mb9 ED Course: 09:37 Patient arrived in ED. mg5 09:37 Drake Guadarrama MD is Attending Physician. rn 09:53 Kim Beckwith RN is Primary Nurse. mb9 09:56 Arm band placed on. mb9 09:58 Triage completed. mb9 09:59 Placed in gown. Bed in low position. Call light in reach. Side rails up X 1. Client mb9 placed on continuous cardiac and pulse oximetry monitoring. NIBP monitoring applied. :59 Provided Education on: press call light if needing anything. mb9 09:59 No provider procedures requiring assistance completed. mb9 10:15 Coud removed intact, balloon deflated. mb9 10:24 Coud inserted, using sterile technique, 14 Fr. Returned cloudy urine. To gravity mb9 drainage. Urine specimen collected. Patient tolerated well. 10:30 Urinalysis w/ reflexes Sent. mb9 10:34 Door closed. Noise minimized. Warm blanket given. mb9 10:51 Urine Culture Sent. mb9 10:55 Patient did not have IV access during this emergency room visit. mb9 Administered Medications: 10:55 Drug: Ciprofloxacin PO 500 mg PO once Route: PO; mb9 10:58 Follow up: Response: No adverse reaction mb9 Medication: :59 VIS not applicable for this client. mb9 Output: 10:34 Urine: 250ml (Lopez); Total: 250ml. mb9 Outcome: 10:51 Discharge ordered by . rn 10:56 Discharged to home ambulatory, mb9 10:56 Condition: stable 10:56 Discharge instructions given to patient, Instructed on discharge instructions, follow up and referral plans. Demonstrated understanding of instructions, follow-up care, medications, Prescriptions given X 1, 11:01 Patient left the ED. mb9 Signatures: Drake Guadarrama MD MD rn Breneman, Mary Beth, RN RN [id number] Tiffani Alanis mg5 Corrections: (The following items were deleted from the chart) 10:25 10:24 General: mb9 mb9
--- NOTE | 2023-09-07 10:53 | EDPHYS ---
Physician Documentation [facility] Name: Naren Freeman Age: 73 yrs Sex: Male : 1950 Arrival Date: 09/07/2023 Time: 09:34 Bed 18 Private MD: ED Physician Drake Guadarrama HPI: 09/06 09:54 This 73 yrs old Black Male presents to ER via Unassigned with complaints of Problem rn With Urinary Catheter, Pain. 09:54 The patient presents with a Harper catheter problem, is not draining, urinary symptoms. rn Onset: The symptoms/episode began/occurred last night. Modifying factors: The symptoms are alleviated by nothing, the symptoms are aggravated by nothing. Severity of symptoms: At their worst the symptoms were moderate, in the emergency department the symptoms are unchanged. The patient has not experienced similar symptoms in the past. The patient has not recently seen a physician. Patient reports Harper catheter not draining since 9 PM last night. Increased abdominal pain this morning. This catheter has been in for 2 months now. Denies fever. No hematuria.. Historical: - Allergies: 09:56 Benadryl; mb9 09:56 Diphenhydramine; mb9 - Home Meds: 09:56 Flomax 0.4 mg oral capsule 1 cap daily [Active]; atorvastatin 40 mg oral tablet mb9 [Active]; Glipizide Oral [Active]; - PMHx: 09:56 Diabetes - NIDDM; High Cholesterol; Hypertension; enlarged prostate; mb9 - PSHx: 09:56 None; mb9 - Immunization history:: Adult Immunizations up to date. - Infectious Disease History:: Denies. - Family history:: not pertinent. - Social history:: Smoking status: Patient reports the use of cigarette tobacco products, denies chronic smoking, but will smoke occasionally. - Hospitalizations: : No recent hospitalization is reported. ROS: 09:54 Constitutional: Negative for fever, chills, and weight loss, Cardiovascular: Negative rn for chest pain, palpitations, and edema, Respiratory: Negative for shortness of breath, cough, wheezing, and pleuritic chest pain, Abdomen/GI: Positive for suprapubic abdominal pain : Positive for urinary retention MS/Extremity: Negative for injury and deformity, Exam: 09:54 Constitutional: This is a well developed, well nourished patient who is awake, alert, rn appears uncomfortable Cardiovascular: Regular rate and rhythm. No pulse deficits. Abdomen/GI: Soft, suprapubic abdominal tenderness. No rebound Vital Signs: 09:57 Pulse 84; Resp 18; Temp 98.4; Pulse Ox 100% ; Weight 80.74 kg; Height 6 ft. 1 in. ; mb9 Pain 10/10; 10:24 BP 134 / 86; mb9 10:55 BP 122 / 86; Pulse 78; Resp 18; Pulse Ox 100% ; mb9 09:57 Body Mass Index 23.48 (80.74 kg, 185.42 cm) mb9 09:57 Pain Scale: Adult mb9 MDM: 09:38 Patient medically screened. rn 10:50 Differential diagnosis: UTI, urinary retention, Harper catheter problem. Data reviewed: rn vital signs, nurses notes, lab test result(s), and as a result, I will discharge patient. Counseling: I had a detailed discussion with the patient and/or guardian regarding the historical points, exam findings, and any diagnostic results supporting the discharge/admit diagnosis, lab results, the need for outpatient follow up, to return to the emergency department if symptoms worsen or persist or if there are any questions or concerns that arise at home. Special discussion: I discussed with the patient/guardian in detail that at this point there is no indication for admission to the hospital. It is understood, however, that if the symptoms persist or worsen the patient needs to return immediately for re-evaluation. 09/06 09:52 Order name: Urinalysis w/ reflexes; Complete Time: 10:50 rn 09/06 10:36 Order name: Urine Culture [facility] 09/06 09:50 Order name: Harper: replace existing harper, is obstructed; Complete Time: 10:30 rn Administered Medications: 10:55 Drug: Ciprofloxacin PO 500 mg PO once Route: PO; mb9 10:58 Follow up: Response: No adverse reaction mb9 Disposition Summary: 09/07/23 10:51 Discharge Ordered Notes: Location: Home rn Problem: new rn Symptoms: have improved rn Condition: Stable rn Diagnosis - Mechanical complication of urinary (indwelling) catheter rn - UTI/ Urinary tract infection, site not specified rn Followup: rn - With: Private Physician - When: As needed - Reason: Recheck today's complaints, Re-evaluation by your physician Discharge Instructions: - Discharge Summary Sheet rn - Indwelling Urinary Catheter Care, Adult rn - Urinary Tract Infection, Adult rn Forms: - Medication Reconciliation Form rn - Antibiotic corporate strategy intern - Prescription Opioid Use rn - Patient Portal Instructions rn - Leadership Thank You Letter rn Prescriptions: - Cipro 500 mg Oral tablet - take 1 tablet ORAL route every 12 hours for 10 days; 20 tablet; Refills: 0, rn Product Selection Permitted Signatures: Dispatcher [employer] Drake Pineda MD MD rn Breneman, Mary Beth RN RN mb9 Corrections: (The following items were deleted from the chart) 09:50 09:46 Bladder Irrigation ordered. rn rn
[2023-09-07 11:09] VITALS: BP 122/86; TEMP 98.4; O2SAT 100
== END 2023-09-07 11:01 | disposition home or self-care (01) ==
LOC: ER 09:34
DX: T83.098A Other mechanical complication of other urinary catheter, initial encounter (principal); N39.0 Urinary tract infection, site not specified; F17.210 Nicotine dependence, cigarettes, uncomplicated; Z88.8 Allergy status to other drugs, medicaments and biological substances
CPT/HCPCS: 81001; 87086; 87088

== ENCOUNTER 2024-02-01 14:24 | Inpatient (IN) | payer OTHER ==
[2024-02-01] MEDS ORDERED: MORPHINE 4 MG/ML SYR ONE ×2 (14:56→15:27)
[2024-02-01] MEDS ORDERED: NA CHLORIDE 0.9% 1,000 ML ONE ×4 (14:57→22:25)
[2024-02-01] MEDS ORDERED: CEFTRIAXONE 2000 MG/VIAL ONE (15:27)
[2024-02-01 15:55] LABS: Specific Gravity 1.009 (1.005-1.030); Sqamous Epithelial None Seen /HPF (None Seen); Urine Bacteria Loaded /HPF (<20); Urine Bilirubin NEGATIVE (Negative); Urine Blood 3+ (OVER) (Negative); Urine Clarity Extremely Turbid (Clear); Urine Color Orange (Yellow); Urine Crystals Unidentified Many /HPF (None Seen); Urine Culture Reflex Order REFLEXED; Urine Glucose NEGATIVE (Negative); Urine Ketones NEGATIVE (Negative); Urine Microscopic Reflex YN ORDER UMIC; Urine Mucus 4+ /HPF (None Seen); Urine Nitrite NEGATIVE (Negative); Urine Protein 2+ (Negative); Urine RBC >50 /HPF (None Seen); Urine Urobilinogen Normal (Normal); Urine WBC >50 /HPF (<5); Urine WBC Clump Many /HPF (None Seen); Urine Yeast (Budding) Many /HPF (None Seen)
[2024-02-01 16:48] LABS: Absolute Lymphocytes (CBC) 0.2 K/uL (0.7-4.9); Absolute Monocytes 0.6 K/uL (0.1-1.3); Absolute Neutrophil 6.4 K/uL (1.8-8.0); Basophils % 0.4 % (0-1.3); Eosinophils % 0.3 % (0-4.4); Hematocrit 34.9 % (39.6-49.0); Hemoglobin 11.9 g/dL (13.6-17.9); Lymphocytes % 2.7 % (15.3-44.8); MCH 30.3 pg (27.0-35.0); MCHC 34.3 g/dL (32.0-36.0); MCV 88.5 fL (80-100); MPV 8.3 fL (7.6-11.3); Monocytes % 8.9 % (3.3-12.3); Neutrophils % 87.7 % (41.7-73.7); Platelets 273 thou/uL (152-406); RBC Red Blood Cell Count 3.94 M/uL (4.33-5.43); Red Cell Distribution Width 13.9 % (12.1-15.2)
[2024-02-01 17:10] LABS: Albumin 2.6 g/dL (3.4-5.0); Albumin/Globulin Ratio 0.7 (1.1-1.8); Anion Gap 17.2 mEq/L (5.0-15.0); Bilirubin Total 0.7 mg/dL (0.2-1.0); Potassium 5.2 mEq/L (3.5-5.1); Protein, Total 6.6 g/dL (6.4-8.2)
[2024-02-01 17:30] LABS: PT Prothrombin Time 10.9 SECONDS (9.4-12.5); PTT, Activated Partial Thromb 26.5 SECONDS (24.3-36.9); Protime INR 0.97
[2024-02-01] MEDS ORDERED: LORazepam 2 MG/ML VIAL ONE (18:27)
--- NOTE | 2024-02-01 18:33 | RAD REPORT ---
EXAMINATION: CT ABDOMEN AND PELVIS WITHOUT CONTRAST CLINICAL INDICATION: Male, 73 years old. [facility] MAIN ABD PAIN IV ONLY Bed Name: 14 TECHNIQUE: CT abdomen and pelvis was performed, without IV contrast, as per department protocol. Axia l, sagittal and coronal reconstructions were obtained. One or more of the following dose reduction techniques were used: Automated exposure control, adjustment of the mA and kV according to the patien t size, and iterative reconstruction. Unless otherwise specified, incidental findings do not require dedicated imaging follow-up. COMPARISON: 07/05/2023 FINDINGS: The lack of intravenous contrast limits the sensitivity of this exam for evaluation of solid visceral organs, vascular structures, and retroperitoneum. LOWER CHEST: The visualized lung bases are clear. LIVER: Normal in size and contour. No focal lesion. BILIARY SYSTEM: Cholelithiasis. No pericholecystic fluid or fat stranding. SPLEEN: Normal size. No focal lesion. PANCREAS: No mass, ductal dilation, or bryan-pancreatic fluid. ADRENALS: Normal; no mass. KIDNEYS AND URETERS: Multiple renal cysts, larger on the left, stable. Progressive swelling and fat s tranding along the left lower renal pole and within the adjacent perinephric space. Mild bilateral hydroureteronephrosis. No radiopaque or obstructing calculi. URINARY BLADDER: Decompressed with Lopez catheter in place. Marked prostatomegaly. GASTROINTESTINAL TRACT: No evidence of bowel obstruction, significant free fluid, free air or abscess . APPENDIX: Normal appendix. LYMPH NODES: No lymphadenopathy. MUSCULOSKELETAL: Moderate multilevel spinal degenerative changes. ADDITIONAL FINDINGS: None. IMPRESSION: Swelling and adjacent perinephric fat stranding along the lower aspect of the left kidney. Findings m ay relate to a recently passed calculus versus ongoing pyelonephritis. Mild bilateral hydroureteronephrosis, without evidence of obstructing calculi. Reflux should be consi dered as well. Marked prostatomegaly, with mass effect upon the bladder outlet. Lopez catheter in place. Other incidental findings as above.
--- NOTE | 2024-02-01 18:53 | ER ---
Nurse's Notes [facility] Name: Naren Freeman Age: 73 yrs Sex: Male : 1950 Arrival Date: 02/01/2024 Time: 14:24 Bed 14 Private MD: Diagnosis: Urinary retention;Acute kidney injury;Urinary tract infection;Lactic acidosis;Hyperglycemia Presentation: 01/31 14:44 Chief complaint: Patient states: his harper catheter came out 4 days ago , he can;t iw urinate and when he does it's a milky white substance. Coronavirus screen: At this time, the client does not indicate any symptoms associated with coronavirus-19. Ebola Screen: No symptoms or risks identified at this time. Initial Sepsis Screen: Does the patient meet any 2 criteria? HR > 90 bpm. Does the patient have a suspected source of infection? No. Patient's initial sepsis screen is negative. Risk Assessment: Do you want to hurt yourself or someone else? Patient reports no desire to harm self or others. Onset of symptoms was January 28, 2024. 14:44 Method Of Arrival: Wheelchair iw 14:44 Acuity: DIXIE 3 iw Historical: - Allergies: 14:46 Benadryl; iw 14:46 Diphenhydramine; iw - PMHx: 14:46 Diabetes - NIDDM; enlarged prostate; High Cholesterol; Hypertension; iw - PSHx: 14:46 BKA left; iw - Immunization history:: Adult Immunizations up to date. - Infectious Disease History:: Denies. - Social history:: Smoking status: Smoking status: Patient reports the use of cigarette tobacco products, denies chronic smoking, but will smoke occasionally. - Family history:: not pertinent. Screenin:02 [facility] ED Fall Risk Assessment (Adult) History of falling in the last 3 months, kc6 including since admission No falls in past 3 months (0 pts) Confusion or Disorientation No (0 pts) Intoxicated or Sedated No (0 pts) Impaired Gait No (0 pts) Mobility Assist Device Used No (0 pt) Altered Elimination No (0 pt) Score/Fall Risk Level 0 - 2 = Low Risk Oriented to surroundings. Abuse screen: Denies threats or abuse. Denies injuries from another. Nutritional screening: No deficits noted. Tuberculosis screening: No symptoms or risk factors identified. Assessment: 16:03 General: Appears distressed, uncomfortable, well groomed, well developed, Behavior is kc6 crying, restless. Pain: Complains of pain in suprapubic area Pain currently is 10 out of 10 on a pain scale. Quality of pain is described as sharp, stabbing, Pain began suddenly, Is continuous, Noted to be crying, grimacing, moaning, restless. Neuro: Level of Consciousness is awake, alert, obeys commands, Oriented to person, place, time, situation, Appropriate for age. Cardiovascular: Capillary refill < 3 seconds. Respiratory: Airway is patent Trachea midline Respiratory effort is even, unlabored, Respiratory pattern is regular, symmetrical. GI: Abdomen is flat, non-distended, Pt is actively vomiting coffee ground emesis Bowel sounds present X 4 quads. Abd is soft X 4 quads Abdomen is tender to palpation in suprapubic area, right lower quadrant and left lower quadrant Reports lower abdominal pain, nausea, vomiting. : Urine is cloudy, Reports inability to void, since 3-4 days pain in suprapubic area. EENT: No signs and/or symptoms were reported regarding the EENT system. Derm: No signs and/or symptoms reported regarding the dermatologic system. Skin is intact, is healthy with good turgor, Skin is pink, warm \\T\\ dry. Musculoskeletal: No signs and/or symptoms reported regarding the musculoskeletal system. Circulation, motion, and sensation intact. Capillary refill < 3 seconds, Range of motion: intact in all extremities. 16:11 Reassessment: Jimmie Krishnan (sister) [phone]. kc6 17:36 Reassessment: Patient appears in no apparent distress at this time. No changes from kc6 previously documented assessment. Patient and/or family updated on plan of care and expected duration. Pain level reassessed. Patient is alert, oriented x 3, equal unlabored respirations, skin warm/dry/pink. 18:15 Reassessment: pt returned from CT scan. pt appears to be anxious and restless, grasping kc6 his neck and reporting neck pain. Dr. Hernandez made aware and at bedside. 18:55 Reassessment: pt with eyes closed, respirations even and unlabored. easily aroused. kc6 20:15 General: Appears ill, Behavior is responsive to verbal stimuli. Pain: Denies pain. al5 Neuro: Level of Consciousness is responsive to verbal stimuli. Cardiovascular: Capillary refill < 3 seconds Patient's skin is warm and dry. Respiratory: Airway is patent Respiratory effort is even, unlabored, Respiratory pattern is regular, symmetrical. GI: Abdomen is flat, non-distended. : Harper in place to gravity drainage clamped. Derm: Skin is intact, Skin is pink, warm \\T\\ dry. normal. 22:12 Reassessment: Patient appears in no apparent distress at this time. No changes from al5 previously documented assessment. Patient and/or family updated on plan of care and expected duration. Pain level reassessed. Patient is alert, oriented x 3, equal unlabored respirations, skin warm/dry/pink. 23:39 Reassessment: patient taken up to ICU 08 by ESTRELLA Loya. report given to ICU nurse. al5 Vital Signs: 14:44 BP 113 / 85; Pulse 109; Resp 19; Temp 97.1; Pulse Ox 100% ; Weight 81.65 kg; Height 6 iw ft. 1 in. ; Pain 10/10; 16:02 BP 115 / 69; Pulse 103; Resp 19 S; Pulse Ox 100% on R/A; kc6 16:50 BP 125 / 64; Pulse 106; Resp 17 S; Pulse Ox 100% on R/A; kc6 17:36 BP 116 / 95; Pulse 102; Resp 17 S; Pulse Ox 99% on R/A; kc6 17:57 BP 120 / 65; Pulse 102; Resp 20 S; Temp 98.3(O); Pulse Ox 99% on R/A; kc6 18:24 BP 111 / 71; kc6 18:30 BP 99 / 65; kc6 18:58 BP 90 / 58; kc6 19:00 BP 97 / 54; Pulse 101; Resp 14; Pulse Ox 98% on R/A; al5 19:15 BP 88 / 61; Pulse 97; Resp 14; Pulse Ox 94% on R/A; al5 19:30 BP 89 / 54; Pulse 96; Resp 13; Pulse Ox 96% on R/A; al5 20:00 BP 87 / 58; Pulse 91; Resp 15; Pulse Ox 96% on R/A; al5 20:02 BP 103 / 70; Pulse 93; Resp 14; Pulse Ox 99% on R/A; al5 20:03 BP 108 / 73; Pulse 92; Resp 14; Pulse Ox 97% on R/A; al5 20:15 BP 101 / 65; Pulse 91; Resp 14; Pulse Ox 94% on R/A; al5 20:30 BP 99 / 66; Pulse 92; Resp 15; Pulse Ox 98% on R/A; al5 20:45 BP 120 / 69; Pulse 92; Resp 13; Pulse Ox 98% on R/A; al5 21:00 BP 98 / 50; Pulse 90; Resp 14; Pulse Ox 98% on 2 lpm NC; al5 21:15 BP 114 / 67; Pulse 92; Resp 14; Pulse Ox 100% on 2 lpm NC; al5 21:30 BP 140 / 91; Pulse 101; Resp 15; Pulse Ox 100% on 2 lpm NC; al5 21:45 BP 127 / 69; Pulse 96; Resp 15; Pulse Ox 100% on 2 lpm NC; al5 22:00 BP 117 / 66; Pulse 97; Resp 15; Pulse Ox 100% on 2 lpm NC; al5 14:44 Body Mass Index 23.75 (81.65 kg, 185.42 cm) iw 14:44 Pain Scale: Adult iw ED Course: 14:28 Patient arrived in ED. mg5 14:43 Guillermo Hernandez MD is Attending Physician. rt 14:46 Triage completed. iw 14:47 Arm band placed on. iw 14:52 Ally Moura, RN is Primary Nurse. kc6 15:19 Urinalysis w/ reflexes Sent. kc6 15:19 Harper cath inserted, using sterile technique, 16 Fr., by me, balloon inflated, to kc6 gravity drainage, clamped. urine specimen collected. Patient tolerated poorly. 16:02 Patient has correct armband on for positive identification. Placed in gown. Bed in low kc6 position. Call light in reach. Side rails up X2. child monitor on. Pulse ox on. NIBP on. Door closed. Noise minimized. Lights dimmed. Warm blanket given. Pillow given. 16:02 Inserted saline lock: 20 gauge in left forearm, using aseptic technique. Blood kc6 collected. Flushed with 10 mL NS. Patient maintains SpO2 saturation greater than 95% on room air. 16:31 Lab(s) recollected, by me, sent to lab. tm3 17:11 Notified ED physician of a critical lab result(s). glucose 667, lactate 3.1. ll1 17:58 Abdomen In Process Unspecified. EDMS 18:33 1520 CM attempted initial assessment, nurse at bedside administering medications. ane Patient was drowsy after receiving morphine. 1810 Nurse at bedside comforting patient, patient is restless and anxious. 1833 CM spoke with patient's sister, Jimmie Krishnan (Demographic sheet is incorrect, says [place]) at [phone]. states lives alone on a ground floor apartment and is typically "pretty self sufficient". She states has a prosthetic leg and is able to ambulate now. DME in the home includes a wheelchair that he uses when his prosthetic is not in use, a shower chair, rf test engineer bars in the shower, and a walker. No HH, home oxygen or other medical services at this time. No MPOA is in place. reports that the patient's ex-, named Estefania, assists him with transporting him to doctor's appointments and will check on him occasionally. She goes on to explain that she was concerned for him when he had the urinary catheter placed, as he did not follow up with urology as instructed, and has had frequent ER visits due to "catheter problems" The preferred plan for is to regain baseline function and return home with assistance for catheter care. CM team will continue to follow and coordinate care. 18:52 Juancarlos Vitale MD is Hospitalizing Provider. rt 20:18 Provided Education on: need for admission. al5 20:18 No provider procedures requiring assistance completed. al5 20:18 Patient admitted, IV remains in place. al5 22:04 Inserted central line in R inner jugular vein done by Dr. Pulido via ultrasound al5 guided. patient tolerated procedure well. line to be confirmed with chest X-ray, order placed at this time. Administered Medications: 15:19 Drug: morphine IM 4 mg IM once Route: IM; Site: left deltoid; kc6 16:34 Follow up: Response: No adverse reaction; Pain is unchanged, physician notified; RASS: kc6 Alert and Calm (0) 15:52 Drug: NS 0.9% IV 1000 ml IV at 1 bolus Per protocol; 1000 mL bolus Route: IV; Rate: 1 kc6 bolus; Site: left forearm; 17:37 Follow up: Response: No adverse reaction; IV Status: Completed infusion; IV Intake: kc6 1000ml 15:52 Drug: NS 0.9% IV 1000 ml IV at 1 bolus Per protocol; 1000 mL bolus Route: IV; Rate: 1 kc6 bolus; Site: left forearm; 17:37 Follow up: Response: No adverse reaction; IV Status: Completed infusion; IV Intake: kc6 1000ml 15:52 Drug: morphine IVP or IV 4 mg IVP once over 4 mins Route: IVP; Infused Over: 4 mins; kc6 Site: left forearm; 16:34 Follow up: Response: No adverse reaction; Pain is decreased; RASS: Drowsy (-1) kc6 16:02 Drug: Rocephin IV 2 grams IV at calculated rate once; Given slow IV push per pharmarcy kc6 instructions Route: IV; Rate: calculated rate; Site: left forearm; 17:37 Follow up: Response: No adverse reaction; IV Status: Completed infusion; IV Intake: [id number] 18:30 Drug: Ativan IVP 1 mg IVP once Route: IVP; Site: left forearm; kc6 18:38 Follow up: Response: No adverse reaction; Anxiety decreased; RASS: Alert and Calm (0) kc6 19:08 Drug: NS 0.9% IV 1000 ml IV at 1 bolus Per protocol; 1000 mL bolus Route: IV; Rate: 1 kc6 bolus; Site: left forearm; 21:00 Follow up: Response: No adverse reaction; Blood pressure is elevated; IV Status: al5 Completed infusion; IV Intake: 1000ml 21:49 Drug: Lidocaine Infiltration (1 %) 20 ml 20 ml Infiltration once; to bedside Volume: 20 lg3 ml; Route: Infiltration; 23:11 Follow up: Response: No adverse reaction al5 Medication: 20:18 VIS not applicable for this client. al5 Intake: 17:37 IV: 50ml; Total: 50ml. kc6 17:37 IV: 1000ml; Total: 1050ml. kc6 17:37 IV: 1000ml; Total: 2050ml. kc6 21:00 IV: 1000ml; Total: 3050ml. al5 Output: 16:49 Urine: 1400ml (Harper); Total: 1400ml. kc6 Outcome: 18:52 Decision to Hospitalize by Provider. rt 20:19 Admitted to ER Hold. Please see [facility] for further documentation. al5 20:19 Condition: unchanged 20:19 Instructed on the need for admit, 23:39 Patient left the ED. al5 Signatures: Dispatcher [employer] EDMS Jimmie Campo tm3 Samreen Martins, ESTRELLA RN iw Leena Desai RN RN lg3 [place] RN RN ll1 Ally Moura RN RN kc6 Guillermo Hernandez MD MD rt Tiffani Alanis mg5 Neida Collazo RN RN al5 Nita Boateng RN RN ane Corrections: (The following items were deleted from the chart) 18:57 18:31 BP 120 / 65; Pulse 102bpm; Resp 20bpm; Spontaneous; Pulse Ox 99% RA; Temp 98.3F kc6 Oral; kc6
--- NOTE | 2024-02-01 18:53 | EDPHYS ---
Physician Documentation [facility] Name: Naren Freeman Age: 73 yrs Sex: Male : 1950 Arrival Date: 02/01/2024 Time: 14:24 Bed 14 Private MD: ED Physician Guillermo Hernandez HPI: 01/31 15:01 This 73 yrs old Black Male presents to ER via Wheelchair with complaints of Problem rt With Urinary Catheter, Pain, Nausea. 15:01 Patient reports that his Lopez catheter came out about 4 days ago. Reports that he has rt only been able to urinate a small amount of milky substance. Reports lower abdominal pain with nausea and vomiting. Denies other acute complaints at this time, symptoms are moderate in severity, no aggravating or alleviating factors.. Historical: - Allergies: 14:46 Benadryl; iw 14:46 Diphenhydramine; iw - PMHx: 14:46 Diabetes - NIDDM; enlarged prostate; High Cholesterol; Hypertension; iw - PSHx: 14:46 BKA left; iw - Immunization history:: Adult Immunizations up to date. - Infectious Disease History:: Denies. - Social history:: Smoking status: Smoking status: Patient reports the use of cigarette tobacco products, denies chronic smoking, but will smoke occasionally. - Family history:: not pertinent. ROS: 15:01 Constitutional: Negative for fever, chills, and weight loss, MS/Extremity: Negative for rt injury and deformity, Skin: Negative for injury, rash, and discoloration, Neuro: Negative for headache, weakness, numbness, tingling, and seizure, 15:01 Abdomen/GI: Positive for abdominal pain, nausea and vomiting, 15:01 : Positive for Urinary retention, Exam: 15:01 Head/Face: Normocephalic, atraumatic. Chest/axilla: Normal chest wall appearance and rt motion. Nontender with no deformity. No lesions are appreciated. Cardiovascular: Regular rate and rhythm with a normal S1 and S2. No gallops, murmurs, or rubs. Normal PMI, no JVD. No pulse deficits. Respiratory: Lungs have equal breath sounds bilaterally, clear to auscultation and percussion. No rales, rhonchi or wheezes noted. No increased work of breathing, no retractions or nasal flaring. Skin: Warm, dry with normal turgor. Normal color with no rashes, no lesions, and no evidence of cellulitis. Neuro: Awake and alert, GCS 15, oriented to person, place, time, and situation. Cranial nerves II-XII grossly intact. Motor strength 5/5 in all extremities. Sensory grossly intact. Cerebellar exam normal. Normal gait. 15:01 Abdomen/GI: Fullness, tenderness to the suprapubic region, 15:43 ECG was reviewed by the Attending Physician. rt 18:31 ECG was reviewed by the Attending Physician. rt Vital Signs: 14:44 BP 113 / 85; Pulse 109; Resp 19; Temp 97.1; Pulse Ox 100% ; Weight 81.65 kg; Height 6 iw ft. 1 in. ; Pain 10/10; 16:02 BP 115 / 69; Pulse 103; Resp 19 S; Pulse Ox 100% on R/A; kc6 16:50 BP 125 / 64; Pulse 106; Resp 17 S; Pulse Ox 100% on R/A; kc6 17:36 BP 116 / 95; Pulse 102; Resp 17 S; Pulse Ox 99% on R/A; kc6 17:57 BP 120 / 65; Pulse 102; Resp 20 S; Temp 98.3(O); Pulse Ox 99% on R/A; kc6 18:24 BP 111 / 71; kc6 18:30 BP 99 / 65; kc6 18:58 BP 90 / 58; kc6 19:00 BP 97 / 54; Pulse 101; Resp 14; Pulse Ox 98% on R/A; al5 19:15 BP 88 / 61; Pulse 97; Resp 14; Pulse Ox 94% on R/A; al5 19:30 BP 89 / 54; Pulse 96; Resp 13; Pulse Ox 96% on R/A; al5 20:00 BP 87 / 58; Pulse 91; Resp 15; Pulse Ox 96% on R/A; al5 20:02 BP 103 / 70; Pulse 93; Resp 14; Pulse Ox 99% on R/A; al5 20:03 BP 108 / 73; Pulse 92; Resp 14; Pulse Ox 97% on R/A; al5 20:15 BP 101 / 65; Pulse 91; Resp 14; Pulse Ox 94% on R/A; al5 20:30 BP 99 / 66; Pulse 92; Resp 15; Pulse Ox 98% on R/A; al5 20:45 BP 120 / 69; Pulse 92; Resp 13; Pulse Ox 98% on R/A; al5 21:00 BP 98 / 50; Pulse 90; Resp 14; Pulse Ox 98% on 2 lpm NC; al5 21:15 BP 114 / 67; Pulse 92; Resp 14; Pulse Ox 100% on 2 lpm NC; al5 21:30 BP 140 / 91; Pulse 101; Resp 15; Pulse Ox 100% on 2 lpm NC; al5 21:45 BP 127 / 69; Pulse 96; Resp 15; Pulse Ox 100% on 2 lpm NC; al5 22:00 BP 117 / 66; Pulse 97; Resp 15; Pulse Ox 100% on 2 lpm NC; al5 14:44 Body Mass Index 23.75 (81.65 kg, 185.42 cm) iw 14:44 Pain Scale: Adult iw Procedures: 22:11 Central Line: the site was prepped with Betadine, in sterile fashion, a triple lumen sp4 catheter was inserted, in the right internal jugular vein, in 1 attempts. placement was verified, by CXR, by blood return, Ultrasound-guided central line , the site was dressed with 4X4s, Tegaderm, using sterile technique, the patient tolerated the procedure, well, Ultrasound-guided central line placed Right IJ location for a septic shock and for resuscitation. MDM: 14:48 Patient medically screened. rt 18:53 Differential diagnosis: Urinary retention, UTI, kidney failure, hyperglycemia. Data rt reviewed: vital signs, nurses notes, lab test result(s), EKG, radiologic studies. Consideration of Admission/Observation Patient was admitted/placed on observation. Management of patient was discussed with the following: Hospitalist: Agrees to admit. I considered the following discharge prescriptions or medication management in the emergency department Medications were administered in the Emergency Department. See MAR. Independent interpretation of the following test(s) in the Emergency Department CT Scan: My interpretation is Thickened bladder wall seen on my interpretation of CT scan images, no unilateral hydronephrosis. Care significantly affected by the following chronic conditions: BPH. Counseling: I had a detailed discussion with the patient and/or guardian regarding the historical points, exam findings, and any diagnostic results supporting the discharge/admit diagnosis, lab results, radiology results, the need for further work-up and treatment in the hospital. Response to treatment: the patient's symptoms have mildly improved after treatment. 01/31 14:54 Order name: Blood Culture Adult (2) rt 01/31 14:54 Order name: CBC with Diff; Complete Time: 17:14 rt 01/31 14:54 Order name: CMP; Complete Time: 17:14 rt 01/31 14:54 Order name: Lactate w/ 2H reflex if indic.; Complete Time: 17:14 rt 01/31 14:54 Order name: Protime (+inr); Complete Time: 18:16 rt 01/31 14:54 Order name: Ptt, Activated; Complete Time: 18:16 rt 01/31 14:54 Order name: Urinalysis w/ reflexes; Complete Time: 16:08 rt 01/31 16:00 Order name: Urine Culture EDTN 01/31 19:12 Order name: Ghost Lactate-NO COLLECT Timer EDTN 01/31 19:22 Order name: ABG Arterial Blood Gas EDTN 01/31 20:01 Order name: Lactate Sepsis 2 HR Follow-up EDMS 01/31 20:26 Order name: Urinalysis w/ reflexes EDMS 01/31 20:26 Order name: CBC with Automated Diff EDMS 01/31 20:26 Order name: CBC with Automated Diff EDMS 01/31 20:26 Order name: Comprehensive Metabolic Panel EDTN 01/31 20:26 Order name: Comprehensive Metabolic Panel EDTN 01/31 17:26 Order name: Abdomen ; Complete Time: 18:36 EDMS 01/31 14:54 Order name: EKG; Complete Time: 14:54 rt 01/31 14:54 Order name: Accucheck; Complete Time: 15:52 rt 01/31 14:54 Order name: Cardiac monitoring; Complete Time: 15:18 rt 01/31 14:54 Order name: EKG - Nurse/Tech; Complete Time: 15:18 rt 01/31 14:54 Order name: IV Saline Lock - Large Bore; Complete Time: 15:52 rt 01/31 14:54 Order name: Labs collected and sent; Complete Time: 15:52 rt 01/31 14:54 Order name: O2 Per Protocol; Complete Time: 15:18 rt 01/31 14:54 Order name: O2 Sat Monitoring; Complete Time: 15:18 rt 01/31 14:54 Order name: Vital Signs; Complete Time: 14:55 rt 01/31 14:54 Order name: Lopez; Complete Time: 15:18 rt 01/31 16:07 Order name: Labs - recollect needed: All labs except cultures; Complete Time: 16:33 bd 01/31 21:49 Order name: Central Line Dressing Kit; Complete Time: 21:49 3 01/31 21:49 Order name: Central Line Kit; Complete Time: 21:49 3 01/31 21:49 Order name: Consent for central line completed 3 01/31 21:49 Order name: Line Caps x3; Complete Time: 21:49 3 01/31 21:49 Order name: NS Flushes x3; Complete Time: 21:49 3 01/31 21:49 Order name: Sterile Gloves; Complete Time: 21:49 lg3 EC:43 Rate is 105 beats/min. Rhythm is regular, Sinus tachycardia with No ectopy. QRS [place] is rt Normal. CA interval is prolonged at 228 msec. QRS interval is normal. QT interval is normal. No Q waves. T waves are Normal. No ST changes noted. Interpreted by me. 18:31 Rate is 104 beats/min. Rhythm is regular, Sinus tachycardia with No ectopy. QRS [place] is rt Normal. CA interval is normal. QRS interval is normal. QT interval is normal. No Q waves. T waves are Normal. No ST changes noted. Interpreted by me. Administered Medications: 15:19 Drug: morphine IM 4 mg IM once Route: IM; Site: left deltoid; kc6 16:34 Follow up: Response: No adverse reaction; Pain is unchanged, physician notified; RASS: kc6 Alert and Calm (0) 15:52 Drug: NS 0.9% IV 1000 ml IV at 1 bolus Per protocol; 1000 mL bolus Route: IV; Rate: 1 kc6 bolus; Site: left forearm; 17:37 Follow up: Response: No adverse reaction; IV Status: Completed infusion; IV Intake: kc6 1000ml 15:52 Drug: NS 0.9% IV 1000 ml IV at 1 bolus Per protocol; 1000 mL bolus Route: IV; Rate: 1 kc6 bolus; Site: left forearm; 17:37 Follow up: Response: No adverse reaction; IV Status: Completed infusion; IV Intake: kc6 1000ml 15:52 Drug: morphine IVP or IV 4 mg IVP once over 4 mins Route: IVP; Infused Over: 4 mins; kc6 Site: left forearm; 16:34 Follow up: Response: No adverse reaction; Pain is decreased; RASS: Drowsy (-1) 6 16:02 Drug: Rocephin IV 2 grams IV at calculated rate once; Given slow IV push per pharmarcy kc6 instructions Route: IV; Rate: calculated rate; Site: left forearm; 17:37 Follow up: Response: No adverse reaction; IV Status: Completed infusion; IV Intake: 22czed0 18:30 Drug: Ativan IVP 1 mg IVP once Route: IVP; Site: left forearm; kc6 18:38 Follow up: Response: No adverse reaction; Anxiety decreased; RASS: Alert and Calm (0) 6 19:08 Drug: NS 0.9% IV 1000 ml IV at 1 bolus Per protocol; 1000 mL bolus Route: IV; Rate: 1 kc6 bolus; Site: left forearm; 21:00 Follow up: Response: No adverse reaction; Blood pressure is elevated; IV Status: al5 Completed infusion; IV Intake: 1000ml 21:49 Drug: Lidocaine Infiltration (1 %) 20 ml 20 ml Infiltration once; to bedside Volume: 20 lg3 ml; Route: Infiltration; 23:11 Follow up: Response: No adverse reaction al5 Disposition Summary: 02/01/24 18:52 Hospitalization Ordered Notes: Hospitalization Status: Inpatient Admission rt Provider: Juancarlos Vitale rt Condition: Guarded rt Problem: new rt Symptoms: have improved rt Bed/Room Type: Standard rt Location: Intensive Care Unit(02/01/24 22:12) rv1 Room Assignment: 8-(02/01/24 22:12) rv1 Diagnosis - Urinary retention rt - Acute kidney injury rt - Urinary tract infection rt - Lactic acidosis rt - Hyperglycemia rt Forms: - Medication Reconciliation Form rt - SBAR form rt - Leadership Thank You Letter rt Critical care time excluding procedures: 18:53 Critical care time: Bedside Care: 30 minutes, Consultation: 5 minutes. Total time: 35 rt minutes Signatures: Dispatcher [employer] Mary [place] Irene, RN RN iw Garcia, Cindy, RN RN cg Able, Lacie, RN RN lg3 Ally Moura RN RN kc6 Guillermo Hernandez MD MD rt Lorenza Khoury rv1 Saud Pulido MD MD sp4 Neida Collazo RN al5 Corrections: (The following items were deleted from the chart) 14:54 14:54 BLOOD CULTURE*+BA.LAB.BRZ ordered. EDMS EDMS 14:54 14:54 CBC+H.LAB.BRZ ordered. EDMS EDMS 14:54 14:54 COMPREHENSIVE METABOLIC PANEL+C.LAB.BRZ ordered. EDMS EDMS 14:54 14:54 LACTATE+C.LAB.BRZ ordered. EDMS EDMS 14:54 14:54 PROTIME (+INR)+COAG.LAB.BRZ ordered. EDMS EDMS 14:54 14:54 PTT, ACTIVATED+COAG.LAB.BRZ ordered. EDMS EDMS 14:54 14:54 Urinalysis+U.LAB.BRZ ordered. EDMS EDMS 17:26 15:20 Abdomen Pelvis W Con+CT.RAD.BRZ ordered. EDMS EDMS 19:00 18:52 Telemetry/MedSurg (Inpatient) rt rv1 19:00 18:52 rt rv1 22:12 19:00 [facility] ER HOLD rv1 cg 22:12 19:00 ERHOLD- rv1 cg 22:12 22:12 Intensive Care Unit cg rv1 22:12 22:12 8- cg rv1
--- NOTE | 2024-02-01 19:22 | P.HP ---
Certification for Inpatient Patient admitted to: Inpatient With expected LOS: >2 Midnights Practitioner: I am a practitioner with admitting privileges, knowledge of patient current condition, hospital course, and medical plan of care. Services: Services provided to patient in accordance with Admission requirements found in Title 42 Section 412.3 of the Code of Federal Regulations Patient History Date of Service: 02/01/24 Reason for admission: Dysuria History of Present Illness: 73 yrs old Male with a past medical history of diabetes, hypertension, hyperlipidemia, BPH, peripheral vascular disease, left BKA who was brought to ER with altered mental status and generalized weakness. Initially came to ER with malfunction of the Lopez catheter .patient reports that his Lopez catheter came out about 4 days ago. Reports that he has only been able to urinate a small amount of milky substance. Reports lower abdominal pain with nausea and vomiting. Denies other acute complaints at this time, symptoms are moderate in severity, no aggravating or alleviating factors. At the time of interview patient is altered and could not provide any history hence most of the history is obtained from the chart review and also talking to the ER physician. Allergies diphenhydramine [From Benadryl] Allergy (Verified 03/04/16 10:02) Nausea/Vomiting Home medications list reviewed: Yes Home Medications: Canagliflozin [Invokana] 100 mg PO DAILY 12/17/15 Glimepiride [Amaryl] 4 mg PO BREAKFAST 12/17/15 Lovastatin 40 mg PO BEDTIME 12/17/15 hydroCHLOROthiazide [Hydrochlorothiazide*] 12.5 mg PO DAILY 12/17/15 Hydrocodone 7.5/APAP 325 [Calvin 7.5/325 mg] 1 tab PO Q6H PRN #30 tab 12/26/15 Acetaminophen/Diphenhydramine [Tylenol Pm Ex-Strength Caplet] 2 each PO BEDTIME PRN 11/29/19 Benzonatate 100 mg PO TID PRN 11/29/19 Duloxetine HCl 60 mg PO DAILY 11/29/19 Tamsulosin [Flomax*] 0.4 mg PO DAILY 11/29/19 Albuterol Inhaler [Ventolin Inhaler*] 2 puff IH Q6H PRN #1 hfa.aer.ad 12/02/19 Aspirin 162 mg PO DAILY #60 tab.chew 12/02/19 Azithromycin [Zithromax] 250 mg PO DAILY #5 tablet 12/02/19 Clopidogrel Bisulfate [Plavix*] 75 mg PO DAILY #30 tablet 12/02/19 Losartan Potassium [Cozaar*] 50 mg PO DAILY #30 tablet 12/02/19 dexAMETHasone [Dexpak] 1.5 mg PO DAILY #1 tab.ds.pk 12/02/19 - Past Medical/Surgical History Diabetic: Yes Past Medical History: Reviewed- Non-Contributory -: NIDDM -: HTN -: High Cholesterol -: Left toe amputation -: Right pinky toe amputaion Past Surgical History: Reviewed- Non-Contributory -: left BKA - Family History Father -: Diabetes Mother -: Diabetes, Cancer - Social History Smoking Status: Unknown if ever smoked Alcohol use: No CD- Drugs: No Caffeine use: No Review of Systems is unable to be obtained Physical Examination - Vital Signs Temperature: 98.3 F Blood Pressure: 101/65 Pulse: 90 Respirations: 18 Pulse Ox (%): 97 - Physical Exam General: Mild distress, Confused, Delirious, Unresponsive HEENT: Atraumatic, Normocephalic Neck: Supple, No Thyromegaly Respiratory: Diminished, Crackles/rales Cardiovascular: Regular rate/rhythm, Normal S1 S2 Capillary refill: <2 Seconds Gastrointestinal: Soft and benign Musculoskeletal: No clubbing, No swelling Integumentary: No rashes Neurological: Abnormal gait, Abnormal speech, Abnormal strength Lymphatics: No axilla or inguinal lymphadenopathy - Studies Laboratory Data (last 24 hrs) 02/01/24 02/01/24 02/01/24 16:25 16:25 16:25 WBC 7.30 Hgb 11.9 L Hct 34.9 L Plt Count 273 PT 10.9 INR 0.97 APTT 26.5 Sodium 123 L Potassium 5.2 H BUN 113 H Creatinine 9.31 H Glucose 667 H* Total Bilirubin 0.7 AST 45 H ALT 47 Alkaline Phosphatase 98 Assessment and Plan - Plan Acute encephalopathy possibly metabolic Monitor neuro vital signs closely ABG findings noted Will get a CT of the head Hyponatremia IV hydration Monitor renal parameters Hyperkalemia Acute kidney injury I will place monitor and replace accordingly IV hydration Renal parameters monitor Nephrology consulted Lactic acidosis Lactic acid levels monitor IV hydration Started on IV antibiotic Will obtain cultures UTI IV hydration IV antibiotics Change antibiotic as per sensitivities Septic Shock IV hydration Cultures IV abx Hyperglycemia DM Insulin Drip Accucheck hourly GI/DVT prophylaxis Advance Directive : Full Code Discharge Plan: Home Plan to discharge in: Greater than 2 days - Advance Directives Does patient have a Living Will: No Does patient have a Durable POA for Healthcare: No - Code Status/Comfort Care Code Status: Full Code Time Spent Managing Pts Care (In Minutes): 49
[2024-02-01 21:27] LABS: Blood Gas THB 11.1 g/dl (12-18); Blood O2 Saturation 96.9 % (92-98.5)
[2024-02-01] MEDS ORDERED: GLUCAGON 1 MG/VIAL IM PRN (21:32)
[2024-02-01] MEDS ORDERED: D50W 25 GM/50 ML SYRINGE IV PRN (21:32)
[2024-02-01] MEDS ORDERED: LIDOCAINE 1% 20 ML MDV ONE (21:45)
[2024-02-01] MEDS ORDERED: INSULIN REGULAR, HUMAN 100 UNIT in NA CHLORIDE 0.9% 100 ML IV SCH (22:00)
[2024-02-01] MEDS ORDERED: NOREPINEPHRINE 4 MG in D5W 250 ML IV SCH (22:00)
[2024-02-01] MEDS ORDERED: NA CHLORIDE 0.9% 100 ML ONE (22:24)
[2024-02-01] MEDS ORDERED: PIPERACIL/TAZO 3.375 GM VIAL IV ONE (22:25)
[2024-02-01] MEDS: NA CHLORIDE 0.9% 1,000 ML IV SCH (22:27)
[2024-02-01] MEDS: PIPER TAZO 3.375 GM in NA CHLORIDE 0.9% 100 ML IV SCH (22:27)
[2024-02-02 00:36] LABS: Albumin 2.4 g/dL (3.4-5.0); Albumin/Globulin Ratio 0.6 (1.1-1.8); Anion Gap 13.7 mEq/L (5.0-15.0); Bilirubin Total 0.4 mg/dL (0.2-1.0); Globulin 4.1 g/dL (2.3-3.5); Potassium 4.7 mEq/L (3.5-5.1); Protein, Total 6.5 g/dL (6.4-8.2)
[2024-02-02] MEDS ORDERED: D10W 125 ML IV PRN (01:35)
[2024-02-02] MEDS ORDERED: GLUCAGON 1 MG/VIAL IM PRN (01:35)
[2024-02-02] MEDS: INSULIN REGULAR (HUMAN) 100 UNIT/ML SQ ONE (03:06)
[2024-02-02] MEDS: PIPER TAZO 2.25 GM in NA CHLORIDE 0.9% 50 ML IV SCH (03:31)
[2024-02-02] MEDS: INSULIN REGULAR (HUMAN) 100 UNIT/ML SQ SCH (06:00)
[2024-02-02] MEDS: D10W 125 ML IV PRN (07:08)
[2024-02-02 07:21] LABS: Absolute Lymphocytes (CBC) 0.3 K/uL (0.7-4.9); Absolute Monocytes 0.5 K/uL (0.1-1.3); Absolute Neutrophil 6.5 K/uL (1.8-8.0); Basophils % 0.2 % (0-1.3); Eosinophils % 0.2 % (0-4.4); Hematocrit 33.4 % (39.6-49.0); Hemoglobin 11.5 g/dL (13.6-17.9); Lymphocytes % 3.6 % (15.3-44.8); MCH 30.1 pg (27.0-35.0); MCHC 34.5 g/dL (32.0-36.0); MCV 87.3 fL (80-100); MPV 8.4 fL (7.6-11.3); Monocytes % 6.6 % (3.3-12.3); Neutrophils % 89.4 % (41.7-73.7); Nucleated Red Blood Cells % 0.1 % (0-0); Platelets 307 thou/uL (152-406); RBC Red Blood Cell Count 3.83 M/uL (4.33-5.43); Red Cell Distribution Width 13.8 % (12.1-15.2)
[2024-02-02 07:48] LABS: Albumin 2.4 g/dL (3.4-5.0); Albumin/Globulin Ratio 0.6 (1.1-1.8); Anion Gap 14.9 mEq/L (5.0-15.0); Bilirubin Total 0.4 mg/dL (0.2-1.0); Globulin 4.1 g/dL (2.3-3.5); Magnesium 2.3 mg/dL (1.6-2.4); Phosphorus 4.5 mg/dL (2.5-4.9); Potassium 3.9 mEq/L (3.5-5.1); Protein, Total 6.5 g/dL (6.4-8.2)
--- NOTE | 2024-02-02 08:34 | RAD REPORT ---
EXAM: XR Chest, 1 View CLINICAL HISTORY: The patient is 73 years old and is Male; Cental line placement TECHNIQUE: Frontal view of the chest. COMPARISON: No relevant prior studies available. FINDINGS: LUNGS: Unremarkable. No consolidation. PLEURAL SPACE: Unremarkable. No pneumothorax. HEART: Unremarkable. No cardiomegaly. MEDIASTINUM: Unremarkable. Normal mediastinal contour. BONES/JOINTS: Multilevel degenerative change of the spine is present. No acute fracture. VASCULATURE: Atherosclerosis of the aorta is present. TUBES, LINES AND DEVICES: A right IJ central venous catheter is present with the tip at the SVC/RA ju nction. UPPER ABDOMEN: Unremarkable as visualized. IMPRESSION: A right IJ central venous catheter is present with the tip at the SVC/RA junction. Electronically signed by: Kristie Lorenz MD 02/02/2024 01:02 AM CDT RP Due to temporary technical issues with the PACS/[employer] reporting system, reports are being anthony d by the in-house radiologist without review as a courtesy to ensure prompt reporting the interpreting radiologist is fully responsible for the content of the report. Transcribed Date/Time: 02/02/2024 8:34 AM
--- NOTE | 2024-02-02 08:39 | RAD REPORT ---
ADDENDUM #1 THIS REPORT CONTAINS FINDINGS THAT MAYBE CRITICAL TO PATIENT CARE: I communicated the above findings by telephone with Dr. Vitale on 02/02/2024 1:59 AM CDT who demonstrated understanding of the above finding (s)/recommendation(s). Electronically signed by: Kristie Lorenz MD 02/02/2024 01:59 AM CDT End of Addendum EXAM: CT Head Without Intravenous Contrast CLINICAL HISTORY: The patient is 73 years old and is Male; AMS TECHNIQUE: Axial computed tomography images of the head/brain without intravenous contrast. Sagittal and coronal reformatted images were created and reviewed. This CT exam was performed using one or more of the following dose reduction te chniques: automated exposure control, adjustment of the mA and/or kV according to patient size, and/or use of iterative r econstruction technique. COMPARISON: CT of the head November 30, 2019 FINDINGS: BRAIN: There is diffuse cerebral atrophy present, consistent with this patient's age. There is patchy hypoattenuation of the deep white matter which is non-specific, but most likely owing to chronic small vessel ischemic change in a patient of this age group. Evidence of prior left basal ganglia lacunar infarct is noted. No intracranial hemorrhage, mass effec t or midline shift is seen. There are no extra-axial fluid collections. VENTRICLES: Unremarkable. No ventriculomegaly. BONES/JOINTS: No acute fracture. SOFT TISSUES: Unremarkable. SINUSES: Left maxillary sinus mucus retention cyst is present. Remaining paranasal sinuses are clear. MASTOID AIR CELLS: Unremarkable as visualized. No mastoid effusion. ORBITS: Unremarkable as visualized. IMPRESSION: No acute intracranial findings. Chronic findings as detailed above. Electronically signed by: Kristie Lorenz MD 02/02/2024 01:55 AM CDT Due to temporary technical issues with the PACS/[employer] reporting system, reports are being anthony d by the in-house radiologist without review as a courtesy to ensure prompt reporting the interpreting radiologist is fully responsible for the content of the report. Transcribed Date/Time: 02/02/2024 8:38 AM
[2024-02-02] MEDS: D5 0.9 NS 1,000 ML IV SCH (09:20)
[2024-02-02 10:42] LABS: Blood Morphology Comment NOT SEEN (NOT SEEN); Platelet Estimate ADEQ; White Blood Cell Scan OK (OK)
[2024-02-02] MEDS: MICAFUNGIN SODIUM 100 MG VIAL IV SCH (11:58)
[2024-02-02] MEDS ORDERED: D5 0.45 NS 1,000 ML IV SCH ×2 (12:00)
[2024-02-02] MEDS: PANTOPRAZOLE 40 MG INJ IVP SCH (12:15)
[2024-02-02] MEDS: D5W 1,000 ML IV SCH ×3 (12:16→18:55)
[2024-02-02] MEDS: MICAFUNGIN SODIUM 100 MG in NA CHLORIDE 0.9% 100 ML IV SCH (12:46)
[2024-02-02] MEDS: ENOXAPARIN 30 MG/0.3 ML SQ SCH (13:00)
--- NOTE | 2024-02-02 13:38 | P.PN ---
Subjective Date of Service: 02/02/24 Chief Complaint: Dysuria Nursing staff report patient vomited coffee-ground material today. Patient blood pressure has improved but still soft. He has been afebrile. Physical Examination - Vital Signs Temperature: 98.5 F Blood Pressure: 101/68 Pulse: 101 Respirations: 16 Pulse Ox (%): 100 - Studies Laboratory Data (last 24 hrs) 02/01/24 02/01/24 02/01/24 16:25 16:25 16:25 WBC 7.30 Hgb 11.9 L Hct 34.9 L Plt Count 273 PT 10.9 INR 0.97 APTT 26.5 Sodium 123 L Potassium 5.2 H BUN 113 H Creatinine 9.31 H Glucose 667 H* Total Bilirubin 0.7 AST 45 H ALT 47 Alkaline Phosphatase 98 Microbiology Data (last 24 hrs): 02/01/24 15:59 Blood - Blood Blood Culture Gram Stain - Final 02/01/24 15:40 Blood - Blood Blood Culture Gram Stain - Final Assessment And Plan - Plan Physical examination General: Confused, not in acute distress HEENT: Conjunctiva not pale, anicteric sclera Neck: Supple, no elevated JVD Heart: Heart sounds 1 and 2 normal, regular rhythm, normal rate, no pedal edema Lungs: Clear to auscultation bilaterally, adequate breath sounds bilaterally, no rhonchi or crackles. Abdomen: Soft, nondistended, nontender, normal bowel sounds. Extremities: No tenderness, no deformity Skin: Normal skin turgor, no rash, no nodules or ulcers. Neuro: No focal motor deficit. Gibberish speech but was able to tell me he lives in [place]. Psychiatry: Confused, no agitation. Assessment and Planning Acute metabolic encephalopathy Septic shock Fungemia Complicated UTI Mental status is improving. Continue ICU care. Aggressive broad-spectrum antibiotics-Rocephin and vancomycin Infectious disease input appreciated. Blood culture is growing yeast. Micafungin added Follow cultures Continue IV fluid. Monitor neuro vital signs closely Hyponatremia IV D5NS Monitor BMP Hyperkalemia Acute kidney injury Hydroureteronephrosis Obstructive uropathy Hyperkalemia and PATTIE likely related to post obstructive uropathy. Lopez catheter is in place. BUN and creatinine markedly elevated but they are trending down. Continue IV hydration Nephrology consulted Lactic acidosis Monitor lactic acid levels IV hydration Follow cultures. DM with hyperglycemia Hypoglycemia Patient initially had severe hyperglycemia. He became persistently hypoglycemic with short acting insulin. Hypoglycemia likely related to sepsis. IV fluids changed to D5 NS Accucheck hourly Hypoglycemia protocol GI/DVT prophylaxis: Heparin SQ Advance Directive : Full Code
--- NOTE | 2024-02-02 14:24 | CON ---
Date of Consultation: 02/02/2024 Reason For Consultation: Elevated BUN and creatinine, fluid management. History Of Present Illness: This is a 73-year-old gentleman with significant past medical history of: 1. Diabetes complicated with neuropathy, status post left below-knee amputation. 2. Hypertension. 3. Hyperlipidemia. 4. Benign prostate hypertrophy. 5. PAD. 6. CAD. 7. Obstructive uropathy. The patient Lopez dependent. Lopez was inserted 6 months ago with exchange every month. Apparently, patient had dislodged his Lopez for the last few days and could not urinate. The patient started being altered mental status. For that reason, the patient reported to the hospital. In the hospital, found to have elevation in BUN and creatinine. For that reason, we have been consulted. The patient admits that he had been taking Advil on a daily basis. After inserting the Lopez, the patient started having good urine output around 100 per hour. Past Medical History: Includes: 1. Diabetes complicated with neuropathy. 2. PAD, status post left below-knee amputation. 3. Benign prostate hypertrophy, obstructive uropathy, Lopez dependent. 4. Hyperlipidemia. 5. CAD. Allergies: TO DIPHENHYDRAMINE. Home Medications: Include Invokana, glimepiride, hydrochlorothiazide, hydrocodone, albuterol, aspirin, Plavix, losartan, dexamethasone. Past Surgical History: Include: 1. Left below-knee amputation. 2. Right pinky toe amputation. 3. Left toe amputation. Family History: Positive for diabetes. Social History: Positive for living alone. Denied smoking. Denied drinking. Denied drugs abuse. Review of Systems: Head and Neck: No red eye. No ear pain. GI: Decreased intake. : Has urine retention, Lopez dependent. ICE CREAM FREEZER: Not applicable. Respiratory: No shortness of breath. Cardiovascular: No chest pain. Endocrine: No polydipsia. Skin: No rash. Neuro: Has hiccup. Altered mental status. Musculoskeletal: No joint pain. Physical Examination: General: When I saw the patient, patient lying in bed. Vital Signs: Blood pressure 109/82, pulse of 106, afebrile. Chest: Clear to auscultation. Heart: S1, S2. Systolic murmur. Abdomen: Soft, nontender. Lopez in place with clear urine. Extremities: No edema. Left below-knee amputation. Right pinky toe amputation. Neurologic: Alert, with hiccup. Oriented x3, with a tremor. Laboratory Data: WBC 7.3, hemoglobin 11.5, platelet 307. Upon presentation, sodium 123, potassium 5.2, bicarb 23, BUN 113, creatinine 9.3, GFR of 60, glucose 667, calcium 8.9. Currently, latest lab data; sodium 139, potassium 3.9, bicarb 24, BUN 93, creatinine 5, GFR of 11, glucose 89, calcium 9.3, phosphorus 4.3, albumin 2.4, corrected calcium is 10.9. Current Medications: The patient on, it includes: 1. Lovenox. 2. Zofran. 3. Insulin. 4. IV fluid. Assessment And Plan: 1. Acute kidney injury secondary to prerenal obstructive uropathy superimposed with hydrochlorothiazide and ARB, on the recovery, still on the dry side. I am going to continue aggressive hydration of the patient. We will bolus the patient with 1 L and we will follow up. We will send for basic workup and we will follow up. Discontinue hydrochlorothiazide. Discontinue ARB. 2. Hyponatremia secondary to renal failure superimposed with hydrochlorothiazide, recovered, resolved. Continue hydration. The patient had 16 rise from yesterday at 4 o'clock till today. So I will bolus the patient with one Liter D5 half and I will repeat the chemistry. 3. Hypertension, controlled, optimal. With the presence of acute kidney injury and hyponatremia, discontinue losartan and hydrochlorothiazide. 4. Obstructive uropathy. We will start the patient on Flomax. 5. Anemia with the presence of acute kidney injury. To send for serum protein electrophoresis. 6. Diabetes, as by Primary. Time spent examining the patient [id number], reviewing data, lab, and radiology, placing order, discussing the case with the patient, discussing the case with the steam generating powerplant mechanic including hospitalist and nursing staff more than 75 minutes. SARAH Voice ID: [id number] Report ID: [id number] MTDBetty
--- NOTE | 2024-02-02 16:03 | CON ---
History Of Present Illness: This is a 73-year-old male with the significant history of diabetes biju itus, hypertension, hyperlipidemia, benign prostatic hypertrophy, peripheral vascular disease, left B KA, was brought into the emergency room with altered mental status. Most of the history was obtained through medical record and sister by the bedside. The patient had a head CT done which showed no ac [place] findings. Abdominal pelvis CT done yesterday showed that he has swelling and redness and perinep hric fat stranding along the lower aspect of the left kidney. Finding may relate to the recent passe d calculus versus ongoing pyelonephritis, mild bilateral hydroureteronephrosis without evidence of ob structing calculi. Microbiology showed that patient has fungus in his blood. Past Medical History: As per HPI. Social History: Nonsmoker. Nondrinker. Family History: Noncontributory. Medications: Zosyn. See MARs for other medications. Allergies: DIPHENHYDRAMINE. Review of Systems: A 10-point review was performed. Physical Examination: General: This is a 73-year-old male, lying in bed, not in any acute cardiopulmonary disease. Vital Signs: Temperature 98, pulse 106, respiration 20, blood pressure 109/82. HEENT: Unremarkable. Neck: Supple. Lungs: Basal crackles. Heart: S1, S2. Regular. Abdomen: Soft, nontender. Bowel sounds present. Extremities: No edema. Laboratory Data: Shows WBC 7.3, hemoglobin 11.5, platelets are 307. Chemistry shows BUN of 93, crea tinine of 5.3. Assessment And Plan: This is a 73-year-old male with anemia, acute renal failure, and postobstructiv e uropathy. Most likely, source of fungal infection is urinary tract infection. The patient's gluco se has been under control at this time. We will recommend to continue Zosyn and start micafungin for 4 weeks. Consider long-term acute care. We will follow the patient closely. Thank you, Dr. Apple, for consult. NF/MODL Voice ID: [id number] Report ID: [id number]
[2024-02-02 18:47] LABS: Albumin 2.1 g/dL (3.4-5.0); Albumin/Globulin Ratio 0.6 (1.1-1.8); Anion Gap 10.8 mEq/L (5.0-15.0); Bilirubin Total 0.4 mg/dL (0.2-1.0); Globulin 3.5 g/dL (2.3-3.5); Potassium 3.8 mEq/L (3.5-5.1); Protein, Total 5.6 g/dL (6.4-8.2)
[2024-02-02] MEDS: INSULIN REGULAR (HUMAN) 100 UNIT/ML IV SCH (19:18)
[2024-02-02] MEDS ORDERED: CARBOXYMETHYLCELLULOSE SODIUM 0.5% 15 ML OPTH PRN (21:00)
[2024-02-03] MEDS: SODIUM CHLORIDE 0.9% 10ML INJ IV PRN (00:57)
[2024-02-03] MEDS: FAMOTIDINE 20 MG/2 ML VIAL IV ONE (00:57)
[2024-02-03 05:31] LABS: Absolute Eosinophils 0.1 K/uL (0-0.5); Absolute Lymphocytes (CBC) 0.4 K/uL (0.7-4.9); Basophils % 0.4 % (0-1.3); Eosinophils % 0.8 % (0-4.4); Hematocrit 28.5 % (39.6-49.0); Hemoglobin 9.9 g/dL (13.6-17.9); Lymphocytes % 6.8 % (15.3-44.8); MCH 30.4 pg (27.0-35.0); MCHC 34.8 g/dL (32.0-36.0); MCV 87.4 fL (80-100); MPV 8.3 fL (7.6-11.3); Monocytes % 15.2 % (3.3-12.3); Neutrophils % 76.8 % (41.7-73.7); Nucleated Red Blood Cells % 0.1 % (0-0); Percent Reticulocyte Count 1.16 % (0.4-2.05); Platelets 252 thou/uL (152-406); RBC Red Blood Cell Count 3.26 M/uL (4.33-5.43); Red Cell Distribution Width 13.9 % (12.1-15.2)
[2024-02-03 06:09] LABS: Albumin 2.2 g/dL (3.4-5.0); Anion Gap 9.6 mEq/L (5.0-15.0); Ferritin 354.1 ng/mL (26-388); Potassium 3.6 mEq/L (3.5-5.1); Thyroid Stimulating Hormone 0.442 uIU/mL (0.358-3.740)
[2024-02-03] MEDS: POTASSIUM PHOS IN 0.9 % NACL 15 MMOL/250 ML BAG IV ONE (06:49)
[2024-02-03] MEDS: TAMSULOSIN 0.4 MG SR CAP PO SCH (08:06)
[2024-02-03] MEDS ORDERED: FAMOTIDINE 20 MG/2 ML VIAL IV SCH (09:00)
[2024-02-03] MEDS ORDERED: CARBOXYMETHYLCELLULOSE SODIUM 0.5% 15 ML OPTH PRN (09:00)
[2024-02-03] MEDS: IPRATROPIUM BROM 0.5MG/2.5ML NEB ONE (10:15)
[2024-02-03] MEDS: ALBUTEROL 2.5 MG/3 ML NEB SOL NEB ONE (10:30)
--- NOTE | 2024-02-03 12:16 | P.PN ---
Subjective Date of Service: 02/03/24 Chief Complaint: Dysuria Patient mental status has improved and he is interacting meaningfully. With no function has also improved significantly. Patient has been coughing and suctioning secretions from his mouth. He has also been experiencing hiccups. Blood pressure has improved. No more episodes of hypoglycemia. No recorded fever over the past 24 hours. Physical Examination - Vital Signs Temperature: 98.7 F Blood Pressure: 133/67 Pulse: 94 Respirations: 18 Pulse Ox (%): 99 - Studies Microbiology Data (last 24 hrs): 02/01/24 15:59 Blood - Blood Blood Culture Gram Stain - Final 02/01/24 15:40 Blood - Blood Blood Culture Gram Stain - Final Assessment And Plan - Plan Physical examination General: Awake and interactive but slightly confused, not in acute distress HEENT: Conjunctiva not pale, anicteric sclera Neck: Supple, no elevated JVD Heart: Heart sounds 1 and 2 normal, regular rhythm, normal rate, no pedal edema Lungs: Clear to auscultation bilaterally, adequate breath sounds bilaterally, no rhonchi or crackles. Abdomen: Soft, nondistended, nontender, normal bowel sounds. Extremities: No tenderness, no deformity Skin: Normal skin turgor, no rash, no nodules or ulcers. Neuro: No focal motor deficit. Gibberish speech but was able to tell me he lives in [place]. Psychiatry: no agitation. Assessment and Planning Acute metabolic encephalopathy Septic shock Fungemia Complicated UTI Lactic acidosis Mental status is improved Continue ICU care. Blood cultures: Yeast in 2/4 bottles Aggressive broad-spectrum antibiotics-IV Zosyn Continue IV micafungin. Infectious disease is following Follow cultures Continue IV fluid. Patient may be a good candidate for LTAC PT consult. Hyponatremia Resolved with IV D5NS. IV fluids changed to D5 water Monitor BMP Hyperkalemia Acute kidney injury Hydroureteronephrosis Obstructive uropathy Hyperkalemia and PATTIE likely related to post obstructive uropathy. Lopez catheter is in place. BUN and creatinine markedly elevated but they have improved significantly Continue IV hydration Nephrology is following. DM with hyperglycemia Hypoglycemia Patient initially had severe hyperglycemia. He became persistently hypoglycemic with short acting insulin. Hypoglycemia likely related to sepsis. Patient started on insulin drip. On IV D5 water. Accucheck hourly Hypoglycemia protocol GI/DVT prophylaxis: Heparin SQ Advance Directive : Full Code
--- NOTE | 2024-02-03 12:23 | EKG ---
Test Date: 2024-02-01 Test Time: 18:22:37 Band Saw Operator: VINCENT MEASUREMENT RESULTS: Intervals: Rate: 104 NM: 256 QRSD: 74 QT: 334 QTc: 439 [place]: P: NM: 256 QRS: 65 T: 57 INTERPRETIVE STATEMENTS: Sinus tachycardia with 1st degree AV block Otherwise normal ECG Compared to ECG 08/12/2021 14:12:02 No significant changes Electronically Signed On 02-03-24 12:18:21 CDT by Gene Snider
--- NOTE | 2024-02-03 12:25 | EKG ---
Test Date: 2024-02-01 Test Time: 15:13:20 Molder Machine: VINCENT MEASUREMENT RESULTS: Intervals: Rate: 105 OH: 228 QRSD: 76 QT: 326 QTc: 430 [place]: P: 69 OH: 228 QRS: 60 T: 84 INTERPRETIVE STATEMENTS: Sinus tachycardia with 1st degree AV block Otherwise normal ECG Compared to ECG 08/12/2021 14:12:02 No significant changes Electronically Signed On 02-03-24 12:18:42 CDT by Gene Snider
[2024-02-03] MEDS: ALBUTEROL 2.5 MG/3 ML NEB SOL NEB SCH (14:14)
[2024-02-03] MEDS: IPRATROPIUM BROM 0.5MG/2.5ML NEB SCH (14:14)
[2024-02-03] MEDS: THIAMINE 200 MG/2 ML INJ IVP SCH (20:44)
--- NOTE | 2024-02-03 22:52 | PN ---
Date of Progress Note: 02/03/2024 Chief Complaint: Elevated BUN and creatinine. Subjective: The patient is a 73-year-old man with past medical history of complicated diabetes bijui ramirez with neuropathy, status post [id number]-vbyz amputation, peripheral vascular disease, coronary art leon disease, hyperlipidemia, benign prostate hypertrophy, and hypertension. The patient has chronic Lopez; Lopez was inserted 6 months ago and he has a Lopez exchange done every month. The patient misty arently dislodged his Lopez, and over the last few days prior to admission he was not able to urinate and urine output decreased despite Lopez catheter. The patient was admitted to the hospital for deborah vated BUN and creatinine, urinary retention, and acute kidney injury. Currently, prior to this admis vale, the patient was taking Advil on daily basis. Lopez catheter was re-inserted in the hospital an d the patient had urine output around 100 mL/hour. He developed postobstructive polyuria. Review of Systems: Denies chest pain, palpitation. Physical Examination: Lungs: Clear to auscultation bilaterally. Heart: S1, S2. Abdomen: Soft. Extremities: No edema. Impression And Plan: 1.Acute kidney injury secondary to obstructive uropathy, complicated by volume depletion. The patie nt was taking also angiotensin receptor basim, which was contributory to abnormal urine retention. 2.The patient will continue IV fluids. 3.Hyponatremia due to renal insufficiency and hydrochlorothiazide. Hyponatremia resolved. Continue to monitor renal panel. 4.Avoid HCTZ and avoid nonsteroidal anti-inflammatory medication. 5.Hypertension. Angiotensin receptor basim was stopped and the patient cannot take hydrochlorothi azide because of hyponatremia. 6.Obstructive uropathy. Continue Flomax. 7.Anemia. The patient will have workup for possible monoclonal gammopathy of unknown significance. EB/MODL Voice ID: [id number] Report ID: [id number]
[2024-02-04 07:24] LABS: Absolute Eosinophils 0.1 K/uL (0-0.5); Absolute Lymphocytes (CBC) 0.7 K/uL (0.7-4.9); Absolute Monocytes 1.5 K/uL (0.1-1.3); Absolute Neutrophil 5.1 K/uL (1.8-8.0); Basophils % 0.3 % (0-1.3); Eosinophils % 0.8 % (0-4.4); Hemoglobin 9.7 g/dL (13.6-17.9); Lymphocytes % 9.9 % (15.3-44.8); MCH 30.3 pg (27.0-35.0); MCHC 34.6 g/dL (32.0-36.0); MCV 87.5 fL (80-100); MPV 8.4 fL (7.6-11.3); Monocytes % 20.1 % (3.3-12.3); Neutrophils % 68.9 % (41.7-73.7); Nucleated Red Blood Cells % 0.2 % (0-0); Platelets 227 thou/uL (152-406); Red Cell Distribution Width 13.6 % (12.1-15.2)
[2024-02-04 07:41] LABS: Albumin 2.1 g/dL (3.4-5.0); Anion Gap 7.1 mEq/L (5.0-15.0); Phosphorus 1.8 mg/dL (2.5-4.9); Potassium 3.1 mEq/L (3.5-5.1)
[2024-02-04] MEDS ORDERED: HEPARIN 5000 UNIT/ML 1 ML VIAL SQ SCH (09:00)
[2024-02-04 09:03] LABS: Atypical Lymphocytes 1 %; Differential Total Cells Count 100; Eosinophils 1 % (0-3); Lymphocytes 7 % (15-42); Metamyelocytes 1 % (0-0); Monocytes 12 % (0-10); Myelocytes 1 % (0-0); Platelet Estimate ADEQ; Segmented Neutrophils 77 % (40-80); Smudge Cells PRESENT
[2024-02-04 09:04] LABS: Blood Morphology Comment NOTED (NOT SEEN); Burr Cells 2+; Poikilocytosis 2+
[2024-02-04] MEDS: POTASSIUM PHOS IN 0.9 % NACL 15 MMOL/250 ML BAG IV SCH (10:02)
--- NOTE | 2024-02-04 13:50 | P.PN ---
Subjective Date of Service: 02/04/24 Chief Complaint: Dysuria Patient mental status has improved and currently oriented Patient has been coughing and experiencing intermittent hiccups. Blood pressure has improved. No more episodes of hypoglycemia. No recorded fever over the past 24 hours. Patient reports weight loss over the last few months. He also reports coffee-ground emesis at home. Physical Examination - Vital Signs Temperature: 97.9 F Blood Pressure: 124/89 Pulse: 97 Respirations: 25 Pulse Ox (%): 97 - Studies Microbiology Data (last 24 hrs): 02/01/24 15:22 Catheterized Urine Malcolm Count - Final >100,000 CFU/ML. 02/01/24 15:22 Catheterized Urine - Final 02/01/24 15:59 Blood - Blood Blood Culture Gram Stain - Final 02/01/24 15:40 Blood - Blood Blood Culture Gram Stain - Final Assessment And Plan - Plan Physical examination General: Awake and interactive but slightly confused, not in acute distress HEENT: Conjunctiva not pale, anicteric sclera Neck: Supple, no elevated JVD Heart: Heart sounds 1 and 2 normal, regular rhythm, normal rate, no pedal edema Lungs: Clear to auscultation bilaterally, adequate breath sounds bilaterally, no rhonchi or crackles. Abdomen: Soft, nondistended, nontender, normal bowel sounds. Extremities: No tenderness, no deformity Skin: Normal skin turgor, no rash, no nodules or ulcers. Neuro: No focal motor deficit. Awake and interactive. Psychiatry: no agitation. Assessment and Planning Acute metabolic encephalopathy Septic shock Fungemia Complicated UTI Lactic acidosis Mental status is improved Continue ICU care. Blood cultures: Yeast in 2/4 bottles, ID is pending. Continue IV Zosyn and Micafungin Infectious disease is following Follow cultures Continue IV fluid. Patient is being evaluated for LTAC PT consulted. Hyponatremia Resolved with IV D5NS. Monitor BMP Hyperkalemia Acute kidney injury Hydroureteronephrosis Obstructive uropathy Hyperkalemia and PATTIE likely related to post obstructive uropathy. Lopez catheter is in place. BUN and creatinine markedly elevated but they have improved significantly Hyperkalemia resolved. Now patient is hypokalemic. Replace potassium cautiously as needed Continue IV hydration Nephrology is following. DM with hyperglycemia Hypoglycemia Patient initially had severe hyperglycemia. He became persistently hypoglycemic with short acting insulin. Hypoglycemia likely related to sepsis. Hypoglycemia resolved Patient is now on insulin ip. On IV D5 water. Accucheck hourly Hypoglycemia protocol. Coffee-ground emesis Weight loss Concern for gastric ulcer. Malignancy not ruled out. Patient will need EGD. This may be done at LTAC if patient gets accepted. No GI coverage this week. IV Protonix GI/DVT prophylaxis: SCD for DVT prophylaxis given hematemesis. Advance Directive : Full Code
[2024-02-04] MEDS: KCL 20 MEQ/100 mL IVPB 20 MEQ/100 ML BAG IV SCH (14:03)
[2024-02-04] MEDS ORDERED: SODIUM CHLORIDE 0.9% 10ML INJ IV PRN (14:12)
[2024-02-04] MEDS: PANTOPRAZOLE 40 MG INJ IVP SCH (20:11)
[2024-02-04] MEDS: POTASSIUM CL SA 10 MEQ TAB PO ONE (21:34)
--- NOTE | 2024-02-04 22:21 | PN ---
Date of Progress Note: 02/04/2024 Chief Complaint: Acute kidney injury. Subjective: Patient is admitted to ICU for severe acute kidney injury. He has history of complicate d diabetes mellitus with peripheral neuropathy, history of below-knee amputation, peripheral vascular disease, coronary artery disease, hyperlipidemia, benign prostate hypertrophy, and hypertension. Th e patient was admitted to the hospital after his Lopez catheter was dislodged and patient could not u rinate. Urine output decreased and the patient came to the hospital, was found to have bladder outle t obstruction and urinary retention. After catheter was reinserted in the hospital, patient develope d postobstructive polyuria. Currently prior to this admission, he was also taking Advil on daily bas is for pain and aches. Review of Systems: Denies chest pain, palpitation. Physical Examination: Lungs: Clear to auscultation bilaterally. Heart: S1, S2. Abdomen: Soft, benign. Extremities: No edema. Impression And Plan: 1.Acute kidney injury secondary to obstructive uropathy complicated by volume depletion and nonstero idal anti-inflammatory medication effect. The patient will continue hydration. Angiotensin receptor basim is on hold. Urinary retention was found due to bladder outlet obstruction. The patient cici l follow up with Urology. The patient has a Lopez catheter. Continue Lopez catheter care. 2.Hyponatremia due to renal insufficiency and hydrochlorothiazide. Hyponatremia, resolved. Avoid H CTZ. Avoid nonsteroidal anti-inflammatory medication. 3.Hypertension. Angiotensin receptor basim was stopped due to acute kidney injury. 4.Obstructive uropathy. Continue Flomax and continue Lopez catheter. 5.Anemia. Workup is pending to rule out monoclonal gammopathy of unknown significance. EB/MODL Voice ID: [id number] Report ID: [id number]
[2024-02-05] MEDS: METOPROLOL TAR 25 MG TAB PO SCH (03:31)
[2024-02-05 05:37] LABS: Absolute Eosinophils 0.1 K/uL (0-0.5); Absolute Lymphocytes (CBC) 1.4 K/uL (0.7-4.9); Absolute Monocytes 1.4 K/uL (0.1-1.3); Basophils % 0.4 % (0-1.3); Eosinophils % 1.6 % (0-4.4); Hematocrit 27.6 % (39.6-49.0); Hemoglobin 9.5 g/dL (13.6-17.9); Lymphocytes % 17.8 % (15.3-44.8); MCH 30.1 pg (27.0-35.0); MCHC 34.5 g/dL (32.0-36.0); MCV 87.3 fL (80-100); MPV 8.2 fL (7.6-11.3); Monocytes % 17.7 % (3.3-12.3); Neutrophils % 62.5 % (41.7-73.7); Nucleated Red Blood Cells % 0.2 % (0-0); Platelets 216 thou/uL (152-406); RBC Red Blood Cell Count 3.16 M/uL (4.33-5.43); Red Cell Distribution Width 13.7 % (12.1-15.2)
[2024-02-05 05:59] LABS: Albumin/Globulin Ratio 0.5 (1.1-1.8); Anion Gap 9.9 mEq/L (5.0-15.0); Bilirubin Total 0.5 mg/dL (0.2-1.0); Globulin 3.8 g/dL (2.3-3.5); Potassium 2.9 mEq/L (3.5-5.1); Protein, Total 5.8 g/dL (6.4-8.2)
[2024-02-05 06:00] LABS: Phosphorus 1.4 mg/dL (2.5-4.9)
[2024-02-05] MEDS: POTASSIUM 25 MEQ EFFERV TAB PO ONE (07:15)
[2024-02-05] MEDS: POTASSIUM CL SA 10 MEQ TAB PO SCH (07:50)
[2024-02-05] MEDS: POTASSIUM PHOS IN 0.9 % NACL 15 MMOL/250 ML BAG IV ONE (09:17)
[2024-02-05] MEDS: MAGNES/ALUMIN/SIMET 30ML UCUP PO ONE (10:02)
[2024-02-05 10:08] LABS: Band Neutrophils 1 % (0-1); Differential Total Cells Count 100; Lymphocytes 17 % (15-42); Monocytes 17 % (0-10); Segmented Neutrophils 62 % (40-80)
[2024-02-05 10:09] LABS: Anisocytosis 1+; Atypical Lymphocytes 1 %; Blood Morphology Comment NOTED (NOT SEEN); Metamyelocytes 1 % (0-0); Myelocytes 1 % (0-0); Platelet Estimate ADEQ
--- NOTE | 2024-02-05 11:19 | P.PN ---
Subjective Date of Service: 02/05/24 Chief Complaint: Dysuria Patient is alert and oriented. Patient's hiccups significantly improved. Blood pressure has improved. No hypoglycemia. No recorded fever over the past 24 hours. No vomiting. Patient is now tolerating food that much and has poor oral intake. Physical Examination - Vital Signs Temperature: 98.1 F Blood Pressure: 113/55 Pulse: 95 Respirations: 27 Pulse Ox (%): 100 - Studies Microbiology Data (last 24 hrs): 02/01/24 15:22 Catheterized Urine [place] Count - Final >100,000 CFU/ML. 02/01/24 15:22 Catheterized Urine - Final 02/01/24 15:59 Blood - Blood Blood Culture Gram Stain - Final 02/01/24 15:40 Blood - Blood Blood Culture Gram Stain - Final Assessment And Plan - Plan Physical examination General: Awake and interactive, not in acute distress HEENT: Anicteric sclera Neck: No elevated JVD Heart: Heart sounds 1 and 2 normal, regular rhythm, normal rate, no pedal edema Lungs: Clear to auscultation bilaterally, adequate breath sounds bilaterally, no rhonchi or crackles. Abdomen: Soft, nondistended, nontender, normal bowel sounds. Extremities: No tenderness, left BKA. Skin: Normal skin turgor, no rash, no nodules or ulcers. Neuro: No focal motor deficit. Awake and interactive. Psychiatry: no agitation. Assessment and Planning Acute metabolic encephalopathy Septic shock Fungemia Complicated UTI Lactic acidosis Mental status is improved Continue ICU care. Blood cultures: Yeast in 2/4 bottles, identity is pending. Continue IV Zosyn and Micafungin Infectious disease is following Follow cultures Continue IV fluid. Patient is being evaluated for LTAC Continue PT. Hyponatremia Resolved with IV D5NS. Monitor BMP Hyperkalemia Hypokalemia Acute kidney injury Hydroureteronephrosis Obstructive uropathy Hyperkalemia and PATTIE likely related to post obstructive uropathy. Lopez catheter is in place. BUN and creatinine markedly elevated but they have improved significantly. PATTIE almost resolved. Hyperkalemia resolved. Replace potassium cautiously as needed Continue IV hydration Nephrology is following. DM with hyperglycemia Hypoglycemia Patient initially had severe hyperglycemia. He became persistently hypoglycemic with short acting insulin. Hypoglycemia likely related to sepsis. Hypoglycemia resolved Continue insulin drip. On IV D5 water. Accucheck hourly Hypoglycemia protocol. Coffee-ground emesis Weight loss Concern for gastric ulcer. Patient has been experiencing heartburn, he also had hiccups which has improved. Malignancy not ruled out. Patient will need EGD. This may be done at LTAC if patient gets accepted. No GI coverage this week. IV Protonix. Antacids as needed GI/DVT prophylaxis: SCD. Advance Directive : Full Code
[2024-02-05] MEDS: KCL 20 MEQ/100 mL IVPB 20 MEQ/100 ML BAG IV SCH (11:37)
[2024-02-05] MEDS: SUCRALFATE 1 GM TABLET PO SCH (16:30)
[2024-02-05] MEDS: SUCRALFATE 1GM/10ML UCUP FT SCH (16:55)
--- NOTE | 2024-02-05 18:36 | ER ---
Subjective: No overnight event. Stable vital signs. Stated he has gastric upset while eating. We will add sucralfate. Potassium replaced. Creatinine improving. Physical Examination: Vital Signs: Temperature 97.8, pulse rate 96, blood pressure 152/55. General: Awake and alert, not in distress. Neck: Supple. No elevated JVD. Heart: Regular rate and rhythm. Normal S1, S2. Chest: Clear to auscultation bilaterally. No rales or wheezes. Abdomen: Soft, nontender. : Has a Lopez. Extremities: Without edema. Laboratory Data: Sodium 140, potassium 2.8, BUN 18, creatinine 1.3. Phosphorus 1.4. Assessment And Plan: 1.Acute kidney injury due to obstructive uropathy. Upon presentation, creatinine was 9.4, right now is 1.3. Continue Lopez. Renally dose medication. Avoid NSAID and contrast. 2.Persistent hypokalemia. Continue replacement as needed. Encourage diet as tolerated. 3.Hypophosphatemia due to poor oral intake. Continue replacement. 4.Obstructive uropathy. Continue Lopez and Flomax. 5.Fungemia, on micafungin. 6.Diabetes mellitus. Continue insulin. The patient is currently on D5 water. Continue to monitor blood sugar. Thanks for allowing me to participate in patient's care. Total time spent 55 minute including documentation, reviewing labs, and discussing with the medical t ashly. FRANCIS Voice ID: [id number] Report ID: [id number]
[2024-02-06] MEDS: ZOLPIDEM TARTRATE 10 MG TABLET PO ONE (02:27)
[2024-02-06 05:43] LABS: Absolute Eosinophils 0.2 K/uL (0-0.5); Absolute Lymphocytes (CBC) 1.6 K/uL (0.7-4.9); Absolute Monocytes 1.5 K/uL (0.1-1.3); Absolute Neutrophil 6.4 K/uL (1.8-8.0); Basophils % 0.4 % (0-1.3); Eosinophils % 2.2 % (0-4.4); Hematocrit 27.7 % (39.6-49.0); Hemoglobin 9.4 g/dL (13.6-17.9); Lymphocytes % 16.2 % (15.3-44.8); MCH 29.8 pg (27.0-35.0); MCHC 33.8 g/dL (32.0-36.0); MPV 8.6 fL (7.6-11.3); Monocytes % 15.8 % (3.3-12.3); Neutrophils % 65.4 % (41.7-73.7); Nucleated Red Blood Cells % 0.1 % (0-0); Platelets 212 thou/uL (152-406); RBC Red Blood Cell Count 3.14 M/uL (4.33-5.43); Red Cell Distribution Width 13.8 % (12.1-15.2)
[2024-02-06 05:58] LABS: Albumin 2.3 g/dL (3.4-5.0); Anion Gap 10.3 mEq/L (5.0-15.0); Potassium 3.3 mEq/L (3.5-5.1)
[2024-02-06 05:59] LABS: Phosphorus 1.5 mg/dL (2.5-4.9)
[2024-02-06] MEDS: POTASSIUM PHOS IN 0.9 % NACL 15 MMOL/250 ML BAG IV ONE ×2 (08:22→19:41)
[2024-02-06] MEDS: KCL 20 MEQ/100 mL IVPB 20 MEQ/100 ML BAG IV SCH (08:22)
[2024-02-06] MEDS ORDERED: D10W 125 ML IV PRN (13:01)
[2024-02-06] MEDS ORDERED: GLUCAGON 1 MG/VIAL IM PRN (13:01)
--- NOTE | 2024-02-06 13:01 | P.PN ---
Subjective Date of Service: 02/06/24 Chief Complaint: Dysuria Nursing staff report improved oral intake. Patient reports improvement in his heartburns. No issues overnight, blood pressure has been stable. No vomiting. Physical Examination - Vital Signs Temperature: 97.3 F Blood Pressure: 115/59 Pulse: 96 Respirations: 18 Pulse Ox (%): 100 Assessment And Plan - Plan Physical examination General: Awake and interactive, not in acute distress HEENT: Anicteric sclera Neck: No elevated JVD Heart: Heart sounds 1 and 2 normal, regular rhythm, normal rate, no pedal edema Lungs: Clear to auscultation bilaterally, adequate breath sounds bilaterally, no rhonchi or crackles. Abdomen: Soft, nondistended, nontender, normal bowel sounds. Skin: Normal skin turgor, no rash. Neuro: No focal motor deficit. Psychiatry: no agitation. Assessment and Planning Acute metabolic encephalopathy Septic shock Fungemia Complicated UTI Lactic acidosis Mental status is improved Blood pressure improved and off Levophed drip. Blood cultures: Yeast in 2/4 bottles, identity is pending. Repeat blood cultures still growing yeast. Continue IV Zosyn and Micafungin Infectious disease is following Follow cultures Continue IV fluid. Patient is being evaluated for LTAC Continue PT. Hyponatremia Resolved with IV D5NS. Monitor BMP Hyperkalemia Hypokalemia Acute kidney injury Hydroureteronephrosis Obstructive uropathy Hyperkalemia and PATTIE likely related to post obstructive uropathy. Lopez catheter is in place. BUN and creatinine markedly elevated but they have improved significantly. PATTIE almost resolved. Hyperkalemia resolved. Replace potassium cautiously as needed for hypokalemia. Continue IV hydration Nephrology is following. DM with hyperglycemia Hypoglycemia Patient initially had severe hyperglycemia. He became persistently hypoglycemic with short acting insulin. Hypoglycemia likely related to sepsis. Hypoglycemia resolved Insulin sliding scale. Accucheck hourly Hypoglycemia protocol. Coffee-ground emesis Weight loss Concern for gastric ulcer. Patient has been experiencing heartburn, he also had hiccups which has improved. Malignancy not ruled out. Patient will need EGD. This may be done at LTAC if patient gets accepted. No GI coverage this week. Continue IV Protonix. Antacids as needed GI/DVT prophylaxis: SCD. Advance Directive : Full Code
[2024-02-06] MEDS: NA CHLORIDE 0.9% 1,000 ML IV SCH (13:30)
[2024-02-06 13:43] LABS: Abnormal Protein Band 1 REPORT; Albumin, (SPE) 2.5 g/dL (3.8-4.8); Alpha-1-Globulins 0.5 g/dL (0.2-0.3); Alpha-2-Globulins 0.8 g/dL (0.5-0.9); Beta 1 Globulin 0.4 g/dL (0.4-0.6); Gamma Globulins 0.6 g/dL (0.8-1.7); INTERPRETATION REPORT; Total Protein 5.2 g/dL (6.1-8.1)
--- NOTE | 2024-02-06 14:53 | P.PN ---
Subjective Date of Service: 02/06/24 Chief Complaint: Dysuria Subjective: No overnight event. Stable vital signs. Cr improving will dc IVF tomorrow Physical Examination: General: Awake and alert, not in distress. Neck: Supple. No elevated JVD. Heart: Regular rate and rhythm. Normal S1, S2. Chest: Clear to auscultation bilaterally. No rales or wheezes. Abdomen: Soft, nontender. : Has a Lopez. Extremities: Without edema. Assessment And Plan: # Acute kidney injury due to obstructive uropathy. Upon presentation, creatinine was 9.4, right now is 1.2. Continue Lopez. Renally dose medication. Avoid NSAID and contrast. #. Persistent hypokalemia. Continue replacement as needed. Encourage diet as tolerated. #. Hypophosphatemia due to poor oral intake. Continue replacement. #. Obstructive uropathy. Continue Lopez and Flomax. #. Fungemia, on micafungin. #. Diabetes mellitus. Continue insulin. The patient is currently on D5 water. Continue to monitor blood sugar. Thanks for allowing me to participate in patient's care. Total time spent 55 minute including documentation, reviewing labs, and dis cussing with the medical team. Physical Examination - Vital Signs Temperature: 97.3 F Blood Pressure: 115/59 Pulse: 96 Respirations: 18 Pulse Ox (%): 100
[2024-02-06 17:35] LABS: Potassium 3.5 mEq/L (3.5-5.1)
[2024-02-06 17:37] LABS: Phosphorus 1.5 mg/dL (2.5-4.9)
[2024-02-06] MEDS: ONDANSETRON 4 MG/2 ML VIAL IV PRN (19:52)
[2024-02-06] MEDS: MELATONIN 3 MG TABLET PO ONE (21:12)
[2024-02-06] MEDS: INSULIN REGULAR (HUMAN) 100 UNIT/ML SQ SCH (21:39)
[2024-02-07 04:30] LABS: Absolute Eosinophils 0.2 K/uL (0-0.5); Absolute Lymphocytes (CBC) 1.4 K/uL (0.7-4.9); Absolute Monocytes 1.1 K/uL (0.1-1.3); Absolute Neutrophil 5.6 K/uL (1.8-8.0); Basophils % 0.4 % (0-1.3); Eosinophils % 2.6 % (0-4.4); Hematocrit 27.4 % (39.6-49.0); Hemoglobin 9.1 g/dL (13.6-17.9); Lymphocytes % 17.3 % (15.3-44.8); MCH 29.2 pg (27.0-35.0); MCHC 33.1 g/dL (32.0-36.0); MCV 88.2 fL (80-100); MPV 8.2 fL (7.6-11.3); Monocytes % 12.9 % (3.3-12.3); Neutrophils % 66.8 % (41.7-73.7); Platelets 250 thou/uL (152-406); Red Cell Distribution Width 13.7 % (12.1-15.2)
[2024-02-07 04:39] LABS: Albumin 2.2 g/dL (3.4-5.0); Anion Gap 10.3 mEq/L (5.0-15.0); Magnesium 1.3 mg/dL (1.6-2.4); Phosphorus 2.1 mg/dL (2.5-4.9); Potassium 3.3 mEq/L (3.5-5.1)
[2024-02-07] MEDS: POTASSIUM PHOS IN 0.9 % NACL 15 MMOL/250 ML BAG IV ONE (05:22)
[2024-02-07] MEDS: KCL 20 MEQ/100 mL IVPB 20 MEQ/100 ML BAG IV SCH (05:22)
[2024-02-07] MEDS: Magnesium Sulfate 2gm IVPB 2 G/50 ML BAG IV ONE (05:23)
[2024-02-07] MEDS ORDERED: INSULIN REGULAR (HUMAN) 100 UNIT/ML SQ SCH (07:30)
[2024-02-07] MEDS: PIPER TAZO 3.375 GM in NA CHLORIDE 0.9% 100 ML IV SCH (08:32)
--- NOTE | 2024-02-07 09:38 | P.PN ---
Subjective Date of Service: 02/07/24 Chief Complaint: Dysuria Patient reports poor sleep. He states he is eating more. No vomiting. No recorded fever. Physical Examination - Vital Signs Temperature: 97.6 F Blood Pressure: 122/74 Pulse: 88 Respirations: 18 Pulse Ox (%): 100 - Studies Microbiology Data (last 24 hrs): 02/01/24 15:59 Blood - Blood Blood Culture Gram Stain - Final 02/01/24 15:59 Blood - Blood Anaerobic Blood Culture - Final No growth in 5 days. 02/01/24 15:40 Blood - Blood Blood Culture Gram Stain - Final 02/01/24 15:40 Blood - Blood Anaerobic Blood Culture - Final No growth in 5 days. Assessment And Plan - Plan Physical examination General: Awake and interactive, not in acute distress HEENT: Anicteric sclera Neck: No elevated JVD Heart: Heart sounds 1 and 2 normal, regular rhythm, normal rate, no pedal edema Lungs: Clear to auscultation bilaterally, adequate breath sounds bilaterally, no rhonchi or crackles. Abdomen: Soft, nondistended, nontender, normal bowel sounds. Skin: Normal skin turgor, no rash. Neuro: No focal motor deficit. Psychiatry: no agitation. Assessment and Planning Acute metabolic encephalopathy Septic shock Fungemia Complicated UTI Lactic acidosis Mental status is improved, Blood pressure improved and off Levophed drip. Blood cultures: Yeast in 2/4 bottles, identity is pending. Repeat blood cultures still growing yeast. Continue IV Zosyn and Micafungin Infectious disease is following Follow cultures Slow IV fluid to supplement oral intake Patient is being evaluated for LTAC Continue PT. Hyponatremia Resolved with IV D5NS. Monitor BMP Hyperkalemia Hypokalemia Acute kidney injury Hydroureteronephrosis Obstructive uropathy Hyperkalemia and PATTIE likely related to post obstructive uropathy. Lopez catheter is in place. BUN and creatinine markedly elevated but they have improved significantly. PATTIE almost resolved. Hyperkalemia resolved. Replace potassium cautiously as needed for hypokalemia. Nephrology is following. DM with hyperglycemia Hypoglycemia Patient initially had severe hyperglycemia. He became persistently hypoglycemic with short acting insulin. Hypoglycemia likely related to sepsis. Hypoglycemia resolved Insulin sliding scale. Accucheck hourly Hypoglycemia protocol. Coffee-ground emesis Weight loss Concern for gastric ulcer. Patient has been experiencing heartburn, he also had hiccups which has improved. Malignancy not ruled out. Patient will need EGD. This may be done at LTAC if patient gets accepted. No GI coverage. Continue IV Protonix. Antacids as needed. Advance diet as tolerated. GI/DVT prophylaxis: SCD. Advance Directive : Full Code
--- NOTE | 2024-02-07 10:40 | RAD REPORT ---
EXAMINATION: ONE VIEW CHEST XR CLINICAL INDICATION: Male, 73 years old. [facility] MAIN SOB TECHNIQUE: Frontal chest projection is submitted. Examination is limited by patient positioning and t echnique. COMPARISON: 02/02/2024 FINDINGS: Right IJ CVC in unchanged position. The lungs are well inflated and clear. No pneumothorax or sizabl e effusion. The heart is normal in size. IMPRESSION: No acute intrathoracic abnormalities.
--- NOTE | 2024-02-07 12:37 | EKG ---
Test Date: 2024-02-05 Test Time: 02:58:10 Car Dumper: ENMANUEL MEASUREMENT RESULTS: Intervals: Rate: 108 TN: 210 QRSD: 86 QT: 372 QTc: 498 [place]: P: 37 TN: 210 QRS: 59 T: 75 INTERPRETIVE STATEMENTS: Sinus tachycardia with 1st degree AV block with premature atrial complexes with aberrant conduction Otherwise normal ECG Compared to ECG 02/01/2024 18:22:37 Atrial premature complex(es) now present Aberrant conduction of supraventricular beat(s) now present Electronically Signed On 02-07-24 12:35:56 CDT by Gene Snider
[2024-02-07] MEDS: ACETAMINOPHEN 325 MG TABLET PO PRN (16:30)
[2024-02-07] MEDS: GLUCERNA SHAKE 237 ML CAN PO SCH (20:26)
--- NOTE | 2024-02-07 20:35 | PN ---
Date of Progress Note: 02/07/2024 Chief Complaint: Acute kidney injury, obstructive uropathy. Subjective: The patient remains in ICU. Patient was admitted to the hospital because of severe acut e kidney injury. He has history of diabetes mellitus with peripheral neuropathy, history of below-kn ee amputation, coronary artery disease, hyperlipidemia, and BPH. Patient was admitted to the [facility] and he was found to have urinary retention, obstructive uropathy. His Lopez catheter was reinserte d. Review of Systems: Denies chest pain, palpitation. Physical Examination: Lungs: Clear to auscultation bilaterally. Heart: S1, S2. Abdomen: Soft, benign. Extremities: No edema. Impression And Plan: 1.Acute kidney injury secondary to bladder outlet obstruction as well as nonsteroidal anti-inflammat ory medication effect. Continue IV fluids. Monitor electrolytes closely. 2.Hypokalemia, hypophosphatemia. Replacement ordered. 3.Hyponatremia due to renal insufficiency and hydrochlorothiazide. Monitor electrolytes closely. A void nonsteroidal anti-inflammatory medication. Avoid HCTZ. 4.Obstructive uropathy. Patient has a Lopez catheter. Continue Flomax. Patient will follow up [facility] Urology. 5.Hypertension. Angiotensin receptor basim was stopped due to acute kidney injury. EB/MODL Voice ID: [id number] Report ID: [id number]
[2024-02-08 04:06] VITALS: BMI 19.2
[2024-02-08 05:14] LABS: Absolute Eosinophils 0.2 K/uL (0-0.5); Absolute Lymphocytes (CBC) 1.3 K/uL (0.7-4.9); Absolute Monocytes 0.7 K/uL (0.1-1.3); Absolute Neutrophil 5.5 K/uL (1.8-8.0); Basophils % 0.2 % (0-1.3); Eosinophils % 2.7 % (0-4.4); Hematocrit 26.2 % (39.6-49.0); Hemoglobin 9.1 g/dL (13.6-17.9); Lymphocytes % 17.2 % (15.3-44.8); MCH 30.4 pg (27.0-35.0); MCHC 34.8 g/dL (32.0-36.0); MCV 87.4 fL (80-100); MPV 7.9 fL (7.6-11.3); Monocytes % 8.6 % (3.3-12.3); Neutrophils % 71.3 % (41.7-73.7); Nucleated Red Blood Cells % 0.2 % (0-0); Platelets 295 thou/uL (152-406); RBC Red Blood Cell Count 2.99 M/uL (4.33-5.43)
[2024-02-08 05:37] LABS: Albumin 2.1 g/dL (3.4-5.0); Albumin/Globulin Ratio 0.6 (1.1-1.8); Bilirubin Total 0.9 mg/dL (0.2-1.0); Globulin 3.8 g/dL (2.3-3.5); Magnesium 1.5 mg/dL (1.6-2.4); Protein, Total 5.9 g/dL (6.4-8.2)
[2024-02-08] MEDS: Magnesium Sulfate 2gm IVPB 2 G/50 ML BAG IV ONE (06:01)
--- NOTE | 2024-02-08 08:11 | P.PN ---
Date of Service: 02/08/24 Subjective: Feeling slightly better today Denies any new / worsening problems appetite slowly improving harper draining light yellow/clear urine didn't sleep too well last night ROS: 10 point ROS as noted above, otherwise negative Physical Exam: GEN: Alert, oriented, NAD CV: Regular rate and rhythm, no edema Pulm: Nonlabored respirations on room air, clear bilaterally ABD: soft, milmd tenderness in epigastrium Neuro: Normal speech, normal affect Chronic harper in place; replaced in ED Problem List: Septic shock secondary to complicated UTI / fungemia Acute metabolic encephalopathy; improved Lactic acidosis, resolved PATTIE secondary to Obstructive uropathy / NSAID use; resolved Hyponatremia, improved coffee-ground emesis Prostatomegaly, chronic iron deficiency anemia, chronic NIDDM2 Hypertension Septic shock secondary to complicated UTI / fungemia Acute metabolic encephalopathy; improved Lactic acidosis, resolved Mental status is improved Blood pressure improved and off Levophed drip. CT abdomen (01/31): swelling and adjacent perinephric fat stranding along the lower aspect of left kidney. Blood cx (01/31): Yeast in 2/4 bottles, identity is pending. Repeat blood cx (02/02): still growing yeast. Continue IV Micafungin (02/01-) - ID recommends 4 weeks of micafungin follow repeat blood/fungal cultures continue IVF given low intake Patient is being evaluated for LTAC PT consult PATTIE secondary to Obstructive uropathy / NSAID use; resolved Hyponatremia, improved CT abdomen noted mild bilateral hydro-ureteronephrosis. +Marked prostatomegaly with mass effect upon the bladder outlet. reports chronic harper for last ~5-6 months. Has not seen Urologist in ~1 year harper reported "cam out" on its own at home a few days prior to admission PATTIE secondary to obstructive uropathy superimposed with NSAID use harper replaced in ED renal fxn improved after IVF and bladder decompressed after harper placement Monitor and replete electrolytes as needed losartan/HCTZ held since admission d/t PATTIE / hyponatremia Nephrology is following continue IV fluids at 50/hr for now - re-eval in next 24 hrs, possible dc PATTIE resolved. coffee-ground emesis Emesis concerning for gastric ulcer earlier in hospital course Patient reports dealing with intermittent heartburn/hiccups continue IV protonix BID, carafate Dr. Tila, GI consulted - I discussed with him today -> NPO for tentative EGD to further eval today Hgb in low 9s last 4-5 days Encourage supplemental nutrition. pureed diet / as tolerated after EGD Prostatomegaly continue Flomax Harper replaced in ED f/u with urology as outpatient iron deficiency anemia iron: 16, tsat%: 7.8% (02/02) hold off on iron for now given acute infxn/fungemia. NIDDM2 initially was severely hyperglycemic but became hypoglycemic with short acting insulin suspect hyperglycemia related to sepsis. accu-cheks, SSI Hypoglycemia resolved Hypertension home losartan and HCTZ held since admission d/t PATTIE / hyponatremia VTE: SCD Code: Full Dispo: LTAC - pending approval ss/cm consulted tentative EGD today Time Spent Managing Pts Care (In Minutes): 51
--- NOTE | 2024-02-08 10:29 | EKG ---
Test Date: 2024-02-05 Test Time: 11:47:57 Call Or Contact Centre Team Leader: CONG MEASUREMENT RESULTS: Intervals: Rate: 92 NV: 220 QRSD: 84 QT: 388 QTc: 479 [place]: P: 42 NV: 220 QRS: 47 T: 73 INTERPRETIVE STATEMENTS: Sinus rhythm with 1st degree AV block with premature atrial complexes Prolonged QT Abnormal ECG Compared to ECG 02/05/2024 02:58:10 Prolonged QT interval now present Sinus tachycardia no longer present Aberrant conduction of supraventricular beat(s) no longer present Electronically Signed On 02-08-24 10:26:19 CDT by Gene Snider
--- NOTE | 2024-02-08 10:42 | PN ---
Date of Progress Note: 02/08/2024 Subjective: Patient was admitted with acute kidney injury secondary to obstructive uropathy, prerena l, superimposed with hydrochlorothiazide and ARB. The patient after hydration, kidney function has b een improved significantly. Objective: General: When I saw the patient, patient still has some nausea. Vital Signs: Blood pressure 135/66, pulse of 99, afebrile. Chest: Clear to auscultation. Heart: S1, S2. Regular. Systolic murmur. Abdomen: Soft, nontender. Extremity: No edema. Left below-knee amputation. Neurologic: Alert. No focality. Laboratory Data: WBC 7.7, hemoglobin 9.1, sodium 138, potassium 4, bicarb 27, BUN 7, creatinine 1.2, GFR of 62, calcium 8.4, magnesium 1.5. Albumin 2.1, corrected calcium is 10. Current Medications: The patient on, it includes: 1.IV fluid. 2.Micafungin. 3.Zosyn. 4.Flomax. 5.Metoprolol. 6.Zofran. 7.Pantoprazole. 8.Carafate. Assessment And Plan: 1.Acute kidney injury, multifactorial, secondary to obstructive uropathy, prerenal, superimposed wit h hydrochlorothiazide and ARB, recovered, resolved, normal volume. As patient is still poor intake, I am going to continue hydration. 2.Hyponatremia secondary to depletional, superimposed with hydrochlorothiazide, recovered, resolved. 3.Hypertension, controlled, optimal. Continue to hold losartan and hydrochlorothiazide. 4.Obstructive uropathy. Continue Flomax. 5.Iron-deficiency anemia with infection. I am going to be reluctant on adding any IV iron. 6.Hypomagnesemia. We will supplement. DENA/ELDA Voice ID: [id number] Report ID: [id number]
--- NOTE | 2024-02-08 11:35 | PN ---
Subjective: Patient lying in bed in ICU bed #8. Patient denies any headache, nausea, vomiting. Goi ng for EGD for hematemesis one episode which he had. Denies any other problems at this time. No his tory of gastritis or stomach ulcers. Objective: Vital Signs: Temperature 97, pulse 90, respiration 22, blood pressure 135/66. Lungs: Basal crackles. Heart: S1, S2. Regular. Abdomen: Soft. Bowel sounds present. Extremity: No edema. Laboratory Data: WBC 7.7, hemoglobin 9.1, platelets 295. Chemistry shows BUN of 7, creatinine 1.2. Assessment And Plan: Fungemia and funguria in a patient with a 73-year-old male who came in with emmy betic ketoacidosis, currently being treated with micafungin and Zosyn. Continue current treatment. Micafungin to be continued for 4 weeks. Continue supportive care and we will monitor signs of infect ion with WBC and fever trends. NF/MODL Voice ID: [id number] Report ID: [id number]
[2024-02-08] MEDS: NA CHLORIDE 0.9% 500 ML ONE (13:52)
[2024-02-08] MEDS ORDERED: LIDOCAINE 1% MPF 2 ML AMPULE ONE (14:33)
[2024-02-08] MEDS ORDERED: propofoL 200 MG/20 ML VIAL IV ONE (14:34)
[2024-02-08 15:12] VITALS: O2SAT 100
[2024-02-08] MEDS: BISACODYL E.C. 5 MG TAB PO ONE (15:30)
[2024-02-08] MEDS: MAGNESIUM CITRATE 300 ML BOT PO SCH (16:00)
[2024-02-08] MEDS: METOCLOPRAMIDE 10 MG/2mL INJ IV SCH (17:37)
[2024-02-08] MEDS: GOLYTELY 4000 ML PO SCH ×2 (17:40→20:50)
[2024-02-08] MEDS: MAGNESIUM CITRATE 300 ML BOT ONE (18:10)
[2024-02-09] MEDS ORDERED: EPINEPHRINE 1 MG/ML VIAL ONE (07:05)
[2024-02-09] MEDS ORDERED: propofoL 200 MG/20 ML VIAL IV ONE (08:25)
[2024-02-09] MEDS ORDERED: LIDOCAINE 1% MPF 5 ML VIAL ONE (08:25)
[2024-02-09 10:32] LABS: Hematocrit 26.3 % (39.6-49.0); Hemoglobin 9.1 g/dL (13.6-17.9); MCH 30.2 pg (27.0-35.0); MCHC 34.5 g/dL (32.0-36.0); MCV 87.6 fL (80-100); MPV 7.5 fL (7.6-11.3); Platelets 400 thou/uL (152-406); Red Cell Distribution Width 14.5 % (12.1-15.2)
[2024-02-09 10:48] LABS: Anion Gap 9.9 mEq/L (5.0-15.0); Magnesium 1.5 mg/dL (1.6-2.4); Potassium 3.9 mEq/L (3.5-5.1)
--- NOTE | 2024-02-09 13:42 | P.DS ---
Admission Date: 02/01/24 Discharge Date: 02/09/24 Disposition: [facility] Discharge Condition: GOOD Reason for Admission: Dysuria Consultations: Infectious disease - Dr. Saldana GI - Dr. Adorno Nephrology - Dr. Castro Brief History of Present Illness: 73 yrs old Male with a past medical history of diabetes, hypertension, hyperlipidemia, BPH, peripheral vascular disease, left BKA who was brought to ER with altered mental status and generalized weakness. Initially came to ER with malfunction of the Harper catheter .patient reports that his Harper catheter came out about 4 days ago. Reports that he has only been able to urinate a small amount of milky substance. Reports lower abdominal pain with nausea and vomiting. Denies other acute complaints at this time, symptoms are moderate in severity, no aggravating or alleviating factors. At the time of interview patient is altered and could not provide any history hence most of the history is obtained from the chart review and also talking to the ER physician. Hospital Course: Problem List: Septic shock secondary to complicated UTI / fungemia Acute metabolic encephalopathy; resolved Lactic acidosis, resolved PATTIE secondary to Obstructive uropathy / NSAID use; resolved Hyponatremia, resolved coffee-ground emesis secondary to reflux esophagitis, resolved Prostatomegaly, chronic, with chronic harper iron deficiency anemia, chronic NIDDM2 Hypertension Physician discharge instructions: Patient presented with confusion, weakness, lower abdominal pain, nausea/vomiting. Found to be secondary to complicated UTI / fungemia and reflux esophagitis.. Initially came to ER with malfunctioning harper catheter - reportedly came out a few days prior to admission and had only been able to urinate a small amount of milky substance since then. Harper was replaced in ED. He was found to have an PATTIE on admission with serum creatinine of 9.31. CT abdomen on admission noted mild bilateral hydro-ureteronephrosis. +Marked prostatomegaly with mass effect upon the bladder outlet. PATTIE secondary to obstructive uropathy superimposed with NSAID/losartan/hydrochlorothiazide use. Renal function improved with IVF and bladder decompression after harper placement along with holding his home losartan and hydrochlorothiazide. Advised to continue to hold losartan and hydrochlorothiazide(HCTZ) for now. Follow up with PCP/dry folder cloth for further management and adjustments of medications. Keep daily diary of blood pressure readings to take to follow up appointments. Creatinine on day of discharge: 1.23 Urine culture grew presumptive alen krusei. Blood cultures from 01/31 and 02/02 both grew yeast (unknown species). Repeat blood cultures have been without growth since 02/06. ID was consulted and recommend to complete 4 weeks total of micafungin (end date: ~03/01/24). He did receive 5 days of empiric zosyn, which was discontinue d after no bacteria growth in cultures - last dose 02/07 AM. In the emergency department, he had an episode of coffee-ground emesis and reported epigastric pain. Dr. Adorno, GI, was consulted and performed EGD/colonoscopy to further evaluate. EGD (02/07): noted reflux esophagitis involving ~75% of the luminal diameter, medium hiatal hernia, and mild diffuse superficial gastritis. Colonosocpy (02/08): was limited by poor bowel prep but noted multiple polyps, intubation to terminal ileum. Recommend following up with Dr. Adorno in office in 1-2 weeks for further discussion and to review biopsy results. Given poor bowel prep, GI recommending repeat colonoscopy within 3 months to reevaluate (with 2 day bowel prep). Hemoglobin remained stable in 9s throughout hospitalization. Iron studies were checked and patient was found to be iron deficient. (iron: 16, tsat%: 7.8%) Advised patient to consider starting oral iron supplementation once this acute infection has resolved. Recommend repeating iron studies in a few months. Medications: Micafungin (end date: ~03/01/24) no NSAIDs for at least 2 weeks continue pantoprazole twice daily, and carafate as needed iron tablets Metoprolol 12.5mg twice daily (started in place of losartan-HCTZ while holding) continue to hold losartan and hydrochlorothiazide for now. Follow up with PCP/dry folder cloth for further management and adjustments of medications. Follow up: PCP 3-5 days after discharge from [facility] Dr. Adorno in office in 1-2 weeks Please call to schedule / confirm appointments Physical Exam: GEN: Alert, oriented, NAD CV: Regular rate and rhythm, no edema Pulm: Nonlabored respirations on room air, clear bilaterally ABD: soft, mild tenderness to palpation in epigastrium Neuro: Normal speech, normal affect Chronic harper in place; (replaced in ED) Vital Signs/Physical Exam: Temp Pulse Resp BP Pulse Ox 97.2 F 82 18 128/68 100 02/09/24 09:50 02/09/24 09:50 02/09/24 09:50 02/09/24 09:50 02/09/24 04:00 Laboratory Data at Discharge: WBC 7.80 thou/uL (4.3-10.9) 02/09/24 10:15 Hgb 9.1 g/dL (13.6-17.9) L 02/09/24 10:15 Hct 26.3 % (39.6-49.0) L 02/09/24 10:15 Plt Count 400 thou/uL (152-406) 02/09/24 10:15 PT 10.9 SECONDS (9.4-12.5) 02/01/24 16:25 INR 0.97 02/01/24 16:25 APTT 26.5 SECONDS (24.3-36.9) 02/01/24 16:25 Sodium 140 mEq/L (136-145) 02/09/24 10:15 Potassium 3.9 mEq/L (3.5-5.1) 02/09/24 10:15 BUN 6 mg/dL (7-18) L 02/09/24 10:15 Creatinine 1.05 mg/dL (0.70-1.30) 02/09/24 10:15 Glucose 99 mg/dL (74-106) 02/09/24 10:15 Uric Acid 7.0 mg/dL (3.5-7.2) 02/03/24 05:00 Phosphorus 2.1 mg/dL (2.5-4.9) L 02/07/24 04:00 Magnesium 1.5 mg/dL (1.6-2.4) L 02/09/24 10:15 Total Bilirubin 0.9 mg/dL (0.2-1.0) 02/08/24 04:50 AST 18 U/L (15-37) 02/08/24 04:50 ALT 26 U/L (16-61) 02/08/24 04:50 Alkaline Phosphatase 105 U/L (45-117) 02/08/24 04:50 Home Medications: Glimepiride [Amaryl] 4 mg PO BREAKFAST 12/17/15 Duloxetine HCl 60 mg PO DAILY 07/15/20 Tamsulosin [Flomax*] 0.4 mg PO DAILY 11/29/19 Albuterol Inhaler [Ventolin Inhaler*] 2 puff IH Q6H PRN #1 hfa.aer.ad 12/02/19 Clopidogrel Bisulfate [Plavix*] 75 mg PO DAILY #30 tablet 12/02/19 Aspirin 81 mg PO DAILY 02/02/24 Atorvastatin Calcium 40 mg PO DAILY 02/02/24 Carboxymethyl/Glycerin/Poly80 [Refresh Optive Advanced Drops] 10 ml OP DAILY PRN 02/02/24 Propylene Glycol [Systane Complete] 10 ml OP DAILY PRN 02/02/24 Metoprolol Tartrate [Lopressor*] 12.5 mg PO BID 6AM 6PM #0 tab 02/09/24 Pantoprazole Inj [Protonix IV*] 40 mg IVP Q12HR #0 vial 02/09/24 Sucralfate [Carafate*] 10 ml FT ACHS PRN 30 Days #90 units 02/09/24 New Medications: Pantoprazole Inj [Protonix IV*] 40 mg IVP Q12HR #0 vial Sucralfate [Carafate*] 10 ml FT ACHS PRN 30 Days #90 units PRN Reason: Abdominal Pain Metoprolol Tartrate [Lopressor*] 12.5 mg PO BID 6AM 6PM #0 tab Physician Discharge Instructions: Physician discharge instructions: Patient presented with confusion, weakness, lower abdominal pain, nausea/vomiting. Found to be secondary to complicated UTI / fungemia and reflux esophagitis.. Initially came to ER with malfunctioning harper catheter - reportedly came out a few days prior to admission and had only been able to urinate a small amount of milky substance since then. Harper was replaced in ED. He was found to have an PATTIE on admission with serum creatinine of 9.31. CT abdomen on admission noted mild bilateral hydro-ureteronephrosis. +Marked prostatomegaly with mass effect upon the bladder outlet. PATTIE secondary to obstructive uropathy superimposed with NSAID/losartan/hydrochlorothiazide use. Renal function improved with IVF and lu dder decompression after harper placement along with holding his home losartan and hydrochlorothiazide. Advised to continue to hold losartan and hydrochlorothiazide(HCTZ) for now. Follow up with PCP/dry folder cloth for further management and adjustments of medications. Keep daily diary of blood pressure readings to take to follow up appointments. Creatinine on day of discharge: 1.23 Urine culture grew presumptive alen krusei. Blood cultures from 01/31 and 02/02 both grew yeast (unknown species). Repeat blood cultures have been without growth since 02/06. ID was consulted and recommend to complete 4 weeks total of micafungin (end date: ~03/01/24). He did receive 5 days of empiric zosyn, which was discontinued after no bacteria growth in cultures - last dose 02/07 AM. In the emergency department, he had an episode of coffee-ground emesis and reported epigastric pain. Dr. Adorno, GI, was consulted and performed EGD/colonoscopy to further evaluate. EGD (02/07): noted reflux esophagitis involving ~75% of the luminal diameter, medium hiatal hernia, and mild diffuse superficial gastritis. Colonosocpy (02/08): was limited by poor bowel prep but noted multiple polyps, intubation to terminal ileum. Recommend following up with Dr. Adorno in office in 1-2 weeks for further discussion and to review biopsy results. Given poor bowel prep, GI recommending repeat colonoscopy within 3 months to reevaluate (with 2 day bowel prep). Hemoglobin remained stable in 9s throughout hospitalization. Iron studies were checked and patient was found to be iron deficient. (iron: 16, tsat%: 7.8%) Advised patient to consider starting oral iron supplementation once this acute infection has resolved. Recommend repeating iron studies in a few months. Medications: Micafungin (end date: ~03/01/24) no NSAIDs for at least 2 weeks continue pantoprazole twice daily, and carafate as needed iron tablets Metoprolol 12.5mg twice daily (started in place of losartan-HCTZ while holding) continue to hold losartan and hydrochlorothiazide for now. Follow up with PCP/dry folder cloth for further management and adjustments of medications. Follow up: PCP 3-5 days after discharge from [facility] Dr. Adorno in office in 1-2 weeks Please call to schedule / confirm appointments Followup: Jamari Adorno MD [ASSOCIATE-ACTIVE - CAN ADMIT] - 1-2 Weeks Campos Calabrese MD [Primary Care Provider] - 1-2 Weeks Time spent managing pt's care (in minutes): 45
--- NOTE | 2024-02-09 13:49 | PN ---
Date of Progress Note: 02/09/2024 Subjective: The patient was admitted to the hospital with acute kidney injury. The patient's pain d oing well. The patient had obstructive uropathy and prerenal secondary to hydrochlorothiazide and AR B. Patient after hydration, kidney function started being improving. The patient planned for surger y today. Objective: Vital Signs: When I saw the patient, blood pressure 139/67, pulse of 97, afebrile. Chest: Clear to auscultation. Heart: S1, S2. Regular. Abdomen: Soft, nontender. Extremity: Left below-knee amputation. Neurologic: Alert. No focality. Laboratory Data: WBC 7.7, hemoglobin 9.1, sodium 138, potassium 4, bicarb 27, BUN 7, creatinine down to 1.2, GFR of 62, calcium 8.4, magnesium 1.5. Current Medications: The patient on include: 1.Albuterol. 2.Metoprolol. 3.Breathing treatment. 4.Pantoprazole. 5.Carafate. 6.Normal saline at 50 per hour. Assessment And Plan: 1.Acute kidney injury secondary to prerenal/obstructive uropathy superimposed with hydrochlorothiazi de and ARB, recovered, resolved. Looked to me in normal volume. The patient has still poor intake. Under surgery, I am going to continue IV hydration. 2.Hyponatremia secondary to depletional, superimposed with hydrochlorothiazide, recovered, resolved. Continue current IV fluids. 3.Obstructive uropathy. Continue Lopez and Flomax. 4.Iron-deficiency anemia. Continue to monitor. Holding IV iron given the active infection. 5.Hypomagnesemia, status post supplement. DENA/ELDA Voice ID: [id number] Report ID: [id number]
[2024-02-09 14:04] VITALS: BP 148/73; TEMP 97.8
--- NOTE | 2024-02-09 15:00 | CON ---
Date of Consultation: 02/08/2024 Reason For Consultation: GI bleed with coffee-ground emesis and anemia. Hemoglobin 9.1. History Of Present Illness: This patient is a 73-year-old male with history of diab etes, hypertension, hyperlipidemia, benign prostatic hypertrophy, stroke, pneumonia, and COVID-19 and left butfj-luj-yglf amputation. Patient presented to the hospital with what appeared to be dysuria and altered mental status and generalized weakness. He had the Lopez catheter that came out before a dmission and seemed to be somewhat obstructive, I guess. This was replaced in the emergency room. H e had altered mental status, probably from the infection, sepsis, with delirium, hyponatremia. He wa s given a Lopez new, IV fluids were given. Lactic acidosis, hyperkalemia were corrected. The UTI wa s treated with antibiotics. Septic shock improved. The patient noted to have coffee-ground emesis x 3, he reports now, some before admission, during after admission as well, but none today. He has had no prior EGD. He reports colonoscopy with colon polyps approximately 8-9 years ago. He lives in [facility]. Colon polyps were found at that time. Review of Systems: Patient has coffee-grounds emesis. He had dysuria, inability to void with some lower abdominal pain, nausea. Vomiting, on admission, has since resolved. He denies any melena, hematochezia, hematemesi s, epistaxis, hematuria, dysuria, polydipsia. No muscle aches, joint aches, backaches. No depressio n or anxiety noted. Social History: He is , 5 children. No tobacco. Quit tobacco 1 month ago. Alcohol, he has occasionally. Father of unknown causes but he does know he had diabetes. Macho oscar had diabetes and of COPD and cancer issue, he reports, though that type of cancer is unknown. Physical Examination: Vital Signs: Patient is 6 feet, 145 pounds. BMI of 19.2 kg/sq m, temperature of 98.3 Fahrenheit, pu lse 85, respirations 13, blood pressure 136/68, O2 saturation 100% on room air. General: He is a well-nourished, well-developed male, in no acute distress, lying in bed. HEENT: Normocephalic, atraumatic. Anicteric. Pupils equal, round, and reactive to light. Extraocu lar movements are intact. Oropharynx is clear. Neck: Supple. No masses. Respirations: Clear to auscultation bilaterally. Cardiac: Regular rate and rhythm. Gastrointestinal: Positive bowel sounds. Soft, nontender, nondistended. Positive organomegaly. No peritoneal or Casanova signs. No rebound. Extremities: No clubbing or cyanosis. He has left layvb-etl-xvet amputation and a right toe amputat ion noted as well, a right fifth toe amputation. Laboratory Data: The patient has a white count of 7.7, hemoglobin 9.1, hematocrit 26.2, MCV of 87, p latelet count 295, polys 71%, lymphs 17%, monocytes 9%, eosinophils 3%. PT of 10.9, INR of 0.97, PTT 26.5. ABG showing a pH of 7.35, pCO2 of 39.4, pO2 of 92.0, bicarb 21, inspired O2 21%, O2 saturatio n 95%, and carboxyhemoglobin of 1 and methemoglobin of 1. Sodium 138, potassium 4.0, chloride 107, b icarb 27, BUN of 7, creatinine of 1.23, glucose 176, calcium 8.4, magnesium 1.5, AST of 18, ALT of 26 , alkaline phosphatase 105, total protein 5.9, albumin 2.1. UA shows extremely turbid urine of 3+ bl ood, 500 leukocyte esterase, greater than 50 white blood cells, many white cell clumps, no squamous e pithelial cells, many bacteria, greater than 20 hyaline casts, 4+ mucus, 2+ protein. Impression: 1.Upper GI bleed with coffee-ground emesis x3. 2.Anemia, hemoglobin 11.5 down to 9.1, and of note, patient has no prior EGD. He does have a prior colonoscopy which was 9 years ago in [place], [place], which revealed colon polyps. 3.Colon polyps. 4.Urinary tract infection with sepsis. Will need to continue IV fluids, IV antibiotics. 5.History of diabetes, hypertension, hyperlipidemia, benign prostatic hypertrophy, strokes, pneumoni a, COVID-19, left [id number] amputation, right fifth toe amputation. Recommendation: 1.Continue IV fluids resuscitation. 2.Continue IV antibiotics. 3.Check serial H and Hs, and transfuse p.r.n. 4.PPI therapy. 5.EGD urgent. 6.Keep patient n.p.o. 7.Consider colonoscopy, the patient with history of colon polyps, last done, 9 years ago. CHAVA/ELDA Voice ID: [id number] Report ID: [id number]
--- NOTE | 2024-02-09 17:15 | PN ---
Subjective: The patient is awaiting transfer, had a colonoscopy and EGD done which showed esophagiti s, possibly secondary to GERD. The patient denies any other problems. Objective: Vital Signs: Reviewed. Lungs: Clear to auscultation. Heart: S1, S2. Regular. Abdomen: Soft, nontender. Bowel sounds present. Extremity: No edema. Laboratory Data: Reviewed. Assessment And Plan: Fungemia and funguria. The patient on micafungin. Esophagitis secondary to ga stroesophageal reflux disease. Continue current treatment. Follow up with the GI team. Continue melecio afungin for 4 weeks. Awaiting transfer to long-term acute care. We will follow the patient as clarence RAMON/ELDA Voice ID: [id number] Report ID: [id number]
== END 2024-02-09 18:58 | DRG 698 ==
LOC: ER 14:24 → ERHOLD 20:16 → 3RD-ICU 23:22 → 4TH 02-08 13:30 → 3RD-ICU 02-08 13:44 → 2ND 02-08 18:18
PROVIDERS: ADMIT Family Medicine; ATTEND Hospitalist
PROC: 02HV33Z Insertion of Infusion Device into Superior Vena Cava, Percutaneous Approach (ICD-10-PCS; 2024-02-01)
PROC: 4A033R1 Measurement of Arterial Saturation, Peripheral, Percutaneous Approach (ICD-10-PCS; 2024-02-01)
PROC: 0DBM8ZX Excision of Descending Colon, Via Natural or Artificial Opening Endoscopic, Diagnostic (ICD-10-PCS; 2024-02-09)
PROC: 0DB68ZX Excision of Stomach, Via Natural or Artificial Opening Endoscopic, Diagnostic (ICD-10-PCS; 2024-02-09)
PROC: 0DB78ZX Excision of Stomach, Pylorus, Via Natural or Artificial Opening Endoscopic, Diagnostic (ICD-10-PCS; 2024-02-09)
PROC: 0DBH8ZX Excision of Cecum, Via Natural or Artificial Opening Endoscopic, Diagnostic (ICD-10-PCS; principal; 2024-02-09 08:15)
DX: T83.028A Displacement of other urinary catheter, initial encounter (principal); A41.9 Sepsis, unspecified organism; E11.10 Type 2 diabetes mellitus with ketoacidosis without coma; G93.41 Metabolic encephalopathy; R65.21 Severe sepsis with septic shock; K21.01 Gastro-esophageal reflux disease with esophagitis, with bleeding; N17.9 Acute kidney failure, unspecified; E87.1 Hypo-osmolality and hyponatremia; B49 Unspecified mycosis; N13.6 Pyonephrosis; F05 Delirium due to known physiological condition; I10 Essential (primary) hypertension; E78.00 Pure hypercholesterolemia, unspecified; E11.51 Type 2 diabetes mellitus with diabetic peripheral angiopathy without gangrene; E11.40 Type 2 diabetes mellitus with diabetic neuropathy, unspecified; E11.649 Type 2 diabetes mellitus with hypoglycemia without coma; K63.5 Polyp of colon; E87.5 Hyperkalemia; E83.42 Hypomagnesemia; E86.9 Volume depletion, unspecified; D50.9 Iron deficiency anemia, unspecified; E87.6 Hypokalemia; E83.39 Other disorders of phosphorus metabolism; D12.0 Benign neoplasm of cecum; K29.30 Chronic superficial gastritis without bleeding; K44.9 Diaphragmatic hernia without obstruction or gangrene; I25.10 Atherosclerotic heart disease of native coronary artery without angina pectoris; N40.1 Benign prostatic hyperplasia with lower urinary tract symptoms; R33.8 Other retention of urine; F17.210 Nicotine dependence, cigarettes, uncomplicated; T50.2X5A Adverse effect of carbonic-anhydrase inhibitors, benzothiadiazides and other diuretics, initial encounter; Z88.8 Allergy status to other drugs, medicaments and biological substances; Z79.82 Long term (current) use of aspirin; Z79.84 Long term (current) use of oral hypoglycemic drugs; Z79.02 Long term (current) use of antithrombotics/antiplatelets; Z89.422 Acquired absence of other left toe(s); Z89.421 Acquired absence of other right toe(s); Z79.899 Other long term (current) drug therapy; Z89.512 Acquired absence of left leg below knee; Y82.8 Other medical devices associated with adverse incidents
CPT/HCPCS: 36415; 36556; 36600; 51702; 70450; 71045; 74176; 80048; 80053; 80069; 81001; 82550; 82607; 82728; 82805; 82947; 83540; 83605; 83735; 83970; 84100; 84132; 84165; 84443; 84466; 84550; 85025; 85027; 85044; 85610; 85730; 87040; 87086; 87088; 87102; 87186; 87205; 87804; 88305; 88312; 92526; 92610; 93005; 94760; 96361; 96365; 96366; 96372; 96375; 99285; A4216; J0171; J0696; J2001; J2248; J2405; J2470; J2543; J2704; J2765; J3411; J3475; J3480; J7030; J7040; J7042; J7613; J7644